=== PATIENT | female | born 1940 | race Caucasian/White ===

== ENCOUNTER 2021-01-24 10:54 | Outpatient (CLI) | payer MEDICARE, OTHER, SELFPAY ==
--- NOTE | ~2021-01-24 | XR_ITS ---
XR shoulder RT min 2V DATE: 01/24/2021 11:49 INDICATION: Right shoulder pain TECHNIQUE: 4 views COMPARISON: None FINDINGS: Diffuse osteopenia. Normal alignment at the acromioclavicular and glenohumeral joints. No fracture or dislocation, perios teal reaction or bone destruction or abnormal soft tissue calcification of the right shoulder. IMPRESSION: Osteopenia Reviewed, dictated and finalized at location B. IMPRESSION: Osteopenia
--- NOTE | ~2021-01-24 | XR_ITS ---
XR lumbar spine 2-3V DATE: 01/24/2021 11:49 INDICATION: Back pain, radiculopathy. TECHNIQUE: AP, lateral, coned lateral lumbosacral views COMPARISON: None FINDINGS: Diffuse osteopenia. There is prominent rotatory levoscoliosis of the lumbar spine. There is severe degenerative disc dise ase throughout the lumbar and lumbosacral spine. No fracture or bone destruction is evident. There is degenerative change at the apophyseal joints in the lower lumbar and lumbosacral area. The sacroiliac joints appear unremarkable. There is extensive calcification of the abdominal aorta and iliac arteries without evidence of abdomi nal aortic aneurysm Surgical clips, right upper quadrant, consistent with cholecystectomy. Right atrial and right ventricular pacemaker leads. Status post sternotomy. IMPRESSION: Rotatory levoscoliosis and severe degenerative disc disease of the lumbar spine Diffuse osteopenia Reviewed, dictated and finalized at location B.
--- NOTE | ~2021-01-24 | XR_ITS ---
XR cervical spine 4-5V DATE: 01/24/2021 11:49 INDICATION: Neck pain TECHNIQUE: AP, open-mouth, lateral, swimmer views COMPARISON: None FINDINGS: There is mild levoscoliosis of the cervical and upper thoracic spine. Diffuse osteopenia. C1 and C2 are normally aligned and the odontoid process is intact. No fracture or dislocation or lock ed facet or prevertebral soft tissue swelling is detected. There is mild anterolisthesis at C4-5. There is moderate degenerative disc disease at C5-6 and C6-7. There is mild anterolisthesis at C7-T1. Status post sternotomy. Left-sided pacemaker device. IMPRESSION: Diffuse osteopenia Mild levoscoliosis Mild anterolisthesis at C4-5 and C7-T1. Moderately severe degenerative disc disease at C5-6 and C6-7 Reviewed, dictated and finalized at location B.
--- NOTE | ~2021-01-24 | XR_ITS ---
XR hip BI wo pelvis DATE: 01/24/2021 11:49 INDICATION: Chronic hip pain TECHNIQUE: AP and lateral views of each hip COMPARISON: None FINDINGS: Degenerative disc disease noted at the lumbar spine. Levoscoliosis of the lumbar spine.. Normal alignment at the pubic symphysis and sacroiliac joints. No fracture or dislocation, avascular necrosis or bone destruction of either hip is evident. Hip join t spaces appear symmetric and relatively preserved. IMPRESSION: Levoscoliosis and multilevel degenerative disc disease of the lumbar spine. No fracture or dislocation or bone destruction of either hip Reviewed, dictated and finalized at location B. IMPRESSION: Levoscoliosis and multilevel degenerative disc disease of the lumba r spine. No fracture or dislocation or bone destruction of either hip
--- NOTE | ~2021-01-24 | XR_ITS ---
XR shoulder LT min 2V DATE: 01/24/2021 11:49 INDICATION: Left shoulder pain TECHNIQUE: 4 views COMPARISON: None FINDINGS: Status post sternotomy. Left-sided dual-lead pacemaker device. Aortic calcification. No fracture or dislocation, periosteal reaction or bone destruction or abnormal soft tissue calcifica tion of the left shoulder joint. IMPRESSION: Osteopenia; otherwise negative left shoulder Reviewed, dictated and finalized at location B.
--- NOTE | ~2021-01-24 | XR_ITS ---
XR knee LT 2V DATE: 01/24/2021 11:49 INDICATION: Left knee pain TECHNIQUE: AP and crosstable lateral views COMPARISON: None FINDINGS: Patellar enthesopathy is noted at the superior pole of patella at the quadriceps tendon ins ertion site and to a lesser extent at the inferior pole of the patellar tendon insertion site. No fracture or dislocation or joint effusion, periosteal reaction or bone destruction, radiopaque int ra-articular loose body or chondrocalcinosis. Mild loss of height of medial compartment joint space. IMPRESSION: Patellar enthesopathy Mild loss of height of medial compartment joint space Reviewed, dictated and finalized at location B.
--- NOTE | ~2021-01-24 | XR_ITS ---
XR knee RT 2V DATE: 01/24/2021 11:49 INDICATION: Right knee pain TECHNIQUE: AP and crosstable lateral views COMPARISON: None FINDINGS: There are couple of surgical clips along the posteromedial aspect of the right knee. There is patellar enthesopathy at the quadriceps tendon and patellar tendon insertion sites. There is minimal periarticular spurring of the patella and medial femoral condyle. Joint spaces appea r relatively preserved. No fracture or dislocation or joint effusion. No radiopaque intra-articular loose body or chondrocalc inosis. IMPRESSION: Mild osteoarthritis Reviewed, dictated and finalized at location B. IMPRESSION: Mild osteoarthritis
== END 2021-01-24 10:55 | disposition home or self-care (01) ==
LOC: ANHIMG 11:02
PROVIDERS: PCP Internal Medicine; Visit Provider Pain Medicine Interventional Pain Medicine
DX: G89.4 Chronic pain syndrome (principal); M17.11 Unilateral primary osteoarthritis, right knee; M51.36 Other intervertebral disc degeneration, lumbar region; M85.812 Other specified disorders of bone density and structure, left shoulder; M85.811 Other specified disorders of bone density and structure, right shoulder; M85.88 Other specified disorders of bone density and structure, other site; M50.322 Other cervical disc degeneration at C5-C6 level; M50.323 Other cervical disc degeneration at C6-C7 level
CPT/HCPCS: 72050; 72100; 73030; 73521; 73560

== ENCOUNTER 2022-12-29 12:09 | Outpatient (CLI) | payer MEDICARE, OTHER, SELFPAY ==
[2022-12-29 12:32] LABS: Basophils Absolute Auto 0.1 K/mm3 (0.0-0.1); Basophils Percent Auto 0.7 % (0.2-1.2); Eosinophils Absolute Auto 0.1 K/mm3 (0-0.3); Eosinophils Percent Auto 0.5 % (0-4.4); Hematocrit 42.9 % (37.0-47.0); Hemoglobin 13.4 g/dL (12.0-15.0); Immature Granulocyte Absolute 0.03 K/mm3 (0.00-0.031); Immature Granulocyte Percent A 0.3 % (0-0.5); Lymphocytes Absolute Auto 2.66 K/mm3 (0.9-3.2); Lymphocytes Percent Auto 25.1 % (18.3-44.2); Mean Corpuscular HGB Conc 31.2 g/dl (32-36); Mean Corpuscular Volume 89.6 fl (80-100); Mean Platelet Volume 11.1 fl (7.4-10.4); Monocytes Absolute Auto 0.7 K/mm3 (0.1-0.6); Monocytes Percent Auto 6.5 % (2.6-8.5); Neutrophils Absolute Auto 7.1 K/mm3 (1.3-6.7); Neutrophils Percent Auto 66.9 % (45.5-73.1); Platelet Count Result 331 k/mm3 (150-375); Red Blood Count 4.79 M/mm3 (4.2-5.4); Red Cell Distribution Width 13.2 % (11.5-14.5); White Blood Count 10.6 K/mm3 (4.5-10.0)
[2022-12-29 12:37] LABS: Blood Urea Nitrogen 22 mg/dL (8-26); Carbon Dioxide 32 mmol/L (22-30); Chloride 100 mmol/L (98-109); Estimated Glomerular Filt Rate 43; Glucose 106 mg/dL (70-105); Ionized Calcium (POC) 1.25 mmol/L (1.11-1.31); Potassium 3.9 mmol/L (3.5-4.9); Sodium 138 mmol/L (138-146)
[2022-12-29 14:07] LABS: Alanine Aminotransferase 18 U/L (6-35); Albumin Level 4.7 g/dL (3.5-5.1); Alkaline Phosphatase 94 U/L (38-126); Anion Gap 6 mmol/L (8-16); Aspartate Amino Transferase 31 U/L (14-36); Bilirubin,Total 0.5 mg/dL (0.2-1.3); Blood Urea Nitrogen 19 mg/dL (7-17); Carbon Dioxide 30 mmol/L (22-30); Chloride 98 mmol/L (98-107); Estimated Glomerular Filt Rate 60; Glucose 103 mg/dL (65-110); Potassium 3.9 mmol/L (3.4-5.0); Sodium 134 mmol/L (137-145)
[2022-12-29 14:33] LABS: Erythrocyte Sedimentation Rate 12 mm/hr (0-20)
[2022-12-29 16:59] LABS: CRP < 0.5 mg/dL (<1.0)
== END 2022-12-29 12:10 | disposition home or self-care (01) ==
LOC: ANHLAB 12:10
PROVIDERS: PCP Internal Medicine; Visit Provider Internal Medicine Hematology & Oncology
DX: D72.829 Elevated white blood cell count, unspecified (principal)
CPT/HCPCS: 36415; 80047; 80053; 85025; 85652; 86140; 88184; 88185

== ENCOUNTER 2025-01-23 11:59 | Inpatient (IN) | payer MEDICARE, OTHER, SELFPAY ==
[2025-01-23] VITALS (24 sets, daily range): BP systolic 92–135; BP diastolic 40–72; PULSE 70–91; RESP 15–30; TEMP 36.2–36.7; O2SAT 92–99; BMI 16.8
--- NOTE | ~2025-01-23 | CT_ITS ---
EXAMINATION: CT abdomen pelvis wo con DATE: 01/24/2025 16:38 INDICATION: Urinary problems, renal failure TECHNIQUE: Computed tomography (CT) of the abdomen and pelvis was performed without intravenous contr ast. Automated exposure control and iterative reconstruction technique were employed. Exam dose: 177 .48 mGy-cm total exam DLP. COMPARISON: 01/24/2025 bilateral renal ultrasound FINDINGS: Status post sternotomy. Right atrial and right ventricular pacemaker leads. Cardiomegaly. N o pericardial effusion. Slight bilateral pleural effusions. The lung bases are clear of infiltrate or consolidation. Status post cholecystectomy. The liver, spleen, pancreas, adrenal glands and kidneys are unremarkable . No bile duct or pancreatic duct dilatation. No urinary tract calculus or hydroureteronephrosis. The urinary bladder is unremarkable. Status post hysterectomy. There is extensive calcification of the abdominal aorta and iliac and femoral arteries. No abdominal aortic aneurysm. There is prominent calcification at the origins of the renal arteries. There are nonspecific shotty periaortic and aortocaval lymph nodes Normal appendix. Diverticulosis of left and right colon. There is a prominent amount of fecal material in the colon. N o bowel obstruction, bowel wall thickening, pneumatosis or intraperitoneal free air is detected. Multilevel severe degenerative disc disease of the lumbar spine. No suspicious osteolytic or osteoblastic lesions. 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 Reviewed, dictated and finalized at location A.
--- NOTE | ~2025-01-23 | US_ITS ---
US renal BI 01/24/2025 11:23 Procedure: Realtime transabdominal ultrasound of the kidneys and bladder. Indication: Renal failure Comparison: No prior studies for comparison. Findings: Renal echotexture is normal bilaterally without hydronephrosis, contour deforming mass or r enal calculus. The right kidney measures 8.9 cm and left kidney measures 10.8 cm. Bladder within nor mal limits. Impression: 1: Unremarkable renal ultrasound. No stones, masses or hydronephrosis. Reviewed, dictated and finalized at location B. Impression: 1: Unremarkable renal ultrasound. No stones, masses or hydronephrosis.
--- NOTE | ~2025-01-23 | XR_ITS ---
Clinical Indication: Weakness AP and lateral views of the chest: Comparison: 02/19/2012 Findings: Calcified right lung granulomas are present. The lungs are otherwise clear, without evidenc e of focal consolidation or pleural effusion. Cardiomediastinal silhouette is stable, status post CA BG with pacemaker device. Bones and soft tissues are unremarkable. Impression: No acute abnormality. Reviewed, dictated and finalized at location . Impression: No acute abnormality.
--- NOTE | 2025-01-23 12:05 | ECG_ITS ---
Test Date: 2025-01-23 12:09:53 Measurements Intervals [place] Rate: 71 P: -10 DE: 157 QRS: 65 QRSD: 114 T: -63 QT: 385 QTc: 419 Interpretive Statements SINUS RHYTHM POSSIBLE LEFT ATRIAL ENLARGEMENT [-0.1mV P WAVE IN V1/V2] ANTEROSEPTAL MYOCARDIAL INFARCTION , OF INDETERMINATE AGE [40+ ms Q WAVE IN V1-V4] MODERATE T-WAVE ABNORMALITY, CONSIDER LATERAL ISCHEMIA [-0.1+ mV T WAVE IN I/aVL/V5/V6] MODERATE T-WAVE ABNORMALITY, CONSIDER INFERIOR ISCHEMIA [-0.1+ mV T WAVE IN II/aVF] No previous ECG available for comparison Electronically Signed On 01-23-2025 18:36:29 CDT by Dixon Puentes M.D.
[2025-01-23 12:27] LABS: Hematocrit 37.8 % (37.0-47.0); Hemoglobin 12.2 g/dL (12.0-15.0); Immature Platelet Fraction Pct 15.8 % (0.9-11.2); Mean Corpuscular HGB Conc 32.3 g/dl (32-36); Mean Corpuscular Hemoglobin 28.6 pg (26-34); Mean Corpuscular Volume 88.5 fl (80-100); Mean Platelet Volume 13.8 fl (7.4-10.4); Platelet Count Result 144 k/mm3 (150-375); Red Blood Count 4.27 M/mm3 (4.2-5.4); Red Cell Distribution Width 14.6 % (11.5-14.5); White Blood Count 23.8 K/mm3 (4.5-10.0)
[2025-01-23 12:35] LABS: Alanine Aminotransferase 33 U/L (6-35); Albumin Level 3.2 g/dL (3.5-5.1); Alkaline Phosphatase 226 U/L (38-126); Anion Gap 11 mmol/L (4-12); Aspartate Amino Transferase 27 U/L (14-36); Bilirubin,Total 1.5 mg/dL (0.2-1.3); Blood Urea Nitrogen 66 mg/dL (7-17); Calcium 9.5 mg/dL (8.4-10.2); Carbon Dioxide 30 mmol/L (22-30); Chloride 93 mmol/L (98-107); Estimated Glomerular Filt Rate 16; Glucose 92 mg/dL (65-110); Potassium 2.9 mmol/L (3.4-5.0); Sodium 134 mmol/L (137-145)
[2025-01-23 12:58] LABS: Band Neutrophils Percent 4 % (0-6); Lymphocytes Absolute Manual 1.19 K/mm3 (1.1-4.5); Lymphocytes Percent Manual 5 % (18-44); Monocytes Absolute Manual 0.95 K/mm3 (0.1-0.90); Monocytes Percent Manual 4 % (3-9); Neutrophils Absolute Manual 21.65 K/mm3 (1.7-7.2); Neutrophils Percent Manual 87 % (46-73); Platelet Estimate Slightly Decreased (Adequate); Total Cells Counted 100
[2025-01-23 12:59] LABS: Anisocytosis 1+; Burr Cells 1+; Ovalocytes 1+; Schistocytes Rare
--- OUTSIDE RECORDS SUMMARY | 2025-01-23 13:21 | XMS_ITS | Clinical Summary ---
Author Organization [facility] Facility Address [address] [address] Care Team Providers Care Voice Professor Name Role Phone Nathen Byrd MD Primary Care Provider [phone] Social History Tobacco Use Types Packs/Day Years Used Date Smoking Tobacco: Former Alcohol Use Standard Drinks/Week Comments No 0 (1 standard drink = 0.6 oz pur e alcohol) Comments Unknown Sex and Gender Information Value Date Recorded Sex Assigned at Not on file Legal Sex Female 2:50 PM EDT Gender Identity Not on file Sexual Orientation Not on file Last Filed Vital Signs Vital Sign Reading Time Taken Comments Blood Pressure 122/70 05/11/2020 12:00 PM CDT Pulse 79 05/11/2020 12:00 PM CDT Temperature 36.7 C (98.1 F) 05/11/2020 12:00 PM CDT Respiratory Rate 18 05/11/2020 12:00 PM CDT Oxygen Saturation 94% 05/11/2020 12:00 PM CDT Inhaled Oxygen Concentration - - Weight 54 kg (119 lb) 05/11/2020 12:00 PM CDT Height 160 cm (5' 3 ) 05/11/2020 12:00 PM CDT Body Mass Index 21.08 05/11/2020 12:00 PM CDT Plan of Treatment Health Maintenance Due Date Last Done Comments Pneumococcal Vaccine: 65+ Years (1 of 2 - PCV) 1946 Influenza Vaccine (#1) 2024 1, 08/13/2019, 08/29/2018, Additional history exists Hepatitis B Vaccine Aged Out No longe r eligible based on patient's age to complete this topic Insurance MEDICARE [facility] Care Teams Voice Professor Relationship Specialty Start Date End Date Nathen Byrd MD [address], [address] [place], [place] [id number] PCP - General Internal Medicine 11/28/21
--- OUTSIDE RECORDS SUMMARY | 2025-01-23 13:21 | XMS_ITS | CONTINUITY OF CARE DOCUMENT ---
Author Name jody vera Address Unknown Organization [facility] Address [address] [place] [address] Phone [phone] Care Team Providers Care Ammunition Supervisor Name Role Phone Eleno SAL, Jordin Unavailable ROSS SAL, JARRET Unavailable JARRET HAWKINS MD Unavailable [phone] PROBLEMS Condition Status Date Provider Notes S/P Biotronik DC PM //Gen change DC PM Biotronik 05/21/23 ( MRI safe) active Charisse Brothers Bradycardia active Umang Fischer Family History of CVA or Stroke: active ? Jordin Johansen MD Hyperlipidemia active ? Jordin Johansen MD Hypertension--ef 55% 12/2019 active Jesús Devlin MD Coronary Heart Disease active ? Jordin Johansen MD Sick sinus syndrome active Jordin Johansen MD Depression active Jordin Johansen MD Weight loss active Kevin Kyte Chest pain active Jesús Devlin MD Pacemaker: active Jordin Johansen MD (Status post) Cardiomyopathy, dilated active Jordin odom MD CHF, systolic, chronic active Jordin Johansen MD Mitral regurgitation, severe active Stacey Ventimiglia PHYSICAL FITNESS TEACHER Difficulty swallowing active Jordin Johansen MD ENCOUNTERS Date Type Provider Location Encounter Diag nosis - In-person encounter Office Visit Jordin Johansen MD [facility] - In-person encounter Office Visit Jordin Johansen MD [facility] Mitral regurgitation, severe - In-person encounter Office Visit Jordin Johansen MD [facility] Difficulty swallowing - In-person encounter Office Visit Jordin Johansen MD [facility] - In-person encounter Office Visit Jordin Johansen MD [facility] Cardiomyopathy, dilatedCHF, systolic, chronic - In-person encounter Office Visit Jordin Johansen MD [facility] - In-person encounter Office Visit Jordin Johansen MD [facility] - In-person encounter Office Visit Jordin Johansen MD [facility] Pacemaker: - In-person encounter Office Visit Jesús Devlin MD [facility] Chest pain - In-person encounter Office Visit Jesús Devlin MD [facility] - In-person encounter Office Visit Tammy Vela MD [facility] Weight loss - In-person encounter Office Visit Jordin Johansen MD [facility] - In-person encounter Office Visit Jordin Johansen MD [facility] - In-person encounter Office Visit Jordin Johansen MD [facility] Depression - In-person encounter Office Visit Jordin Johansen MD [facility] - In-person encounter Office Visit Jordin Johansen MD [facility] - In-person encounter Office Visit Jordin Johansen MD [facility] - In-person encounter Office Visit Jordin Johansen MD [facility] Sick sinus syndrome - In-person encounter Office Visit Jordin Johansen MD [facility] Family History of CVA or Stroke:Hyperlipidem iaHypertension--ef 55% 12/2019Coronary Heart Disease VITAL SIGNS Date Observation Value Provider Body Mass Index (Ratio) 18.95 kg/m2 Earnest Johansen MD weight E&M 107 [lb_av] Jordin Rush respiratory rate E&M 16 /min Indra Noman blood pressure, cuff size regular Do [facility] blood pressure, diastolic 64 mm[Hg] Do [facility] blood pressure, systolic 118 mm[Hg] Ti mark Noman oxygen saturation, oximetry 100 % [facility] height E&M 63 [in_i] [facility] Body Mass Index (Ratio) 18.95 kg/m2 Earnest Johansen MD blood pressure, cuff size regular [facility] blood pressure, diastolic 87 mm[Hg] [facility] blood pressure, systolic 137 mm[Hg] Joni loza pulse rate 86 /min Trae y respiratory rate E&M 12 /min Trae weight E&M 107 [lb_av] Trae y height E&M 63 [in_i] Trae y Body Mass Index (Ratio) 19.31 kg/m2 Earnest Johansen MD oxygen saturation, oximetry 94 % Macarena Garcia pulse rate 77 /min Macarena Garcia blood pressure, cuff size regular Angel Garcia blood pressure, diastolic 82 mm[Hg] Angel Garcia blood pressure, systolic 143 mm[Hg] James smith Garcia respiratory rate E&M 14 /min Macarena singhchristos weight E&M 109 [lb_av] Macarena Garcia height E&M 63 [in_i] Macarena Garcia Body Mass Index (Ratio) 18.95 kg/m2 Earnest Johansen MD blood pressure, cuff size regular Ke rri Gruenenfeldbekah blood pressure, diastolic 72 mm[Hg] Ke rri Gruenenfelder blood pressure, systolic 150 mm[Hg] Kathya ri Ryanueneyelena oxygen saturation, oximetry 100 % Tania Maria Elena respiratory rate E&M 12 /min Taina G jacqueenenfeldbekah pulse rate 70 /min Tania Grsri [facility] weight E&M 107 [lb_av] Tania Gruenenfe [facility] height E&M 63 [in_i] Tania Socratese [facility] Body Mass Index (Ratio) 18.60 kg/m2 Earnest Johansen MD blood pressure, cuff size regular Ke rri Gruenenfelder blood pressure, diastolic 62 mm[Hg] Ke rri Gruenenfeldbekah blood pressure, systolic 102 mm[Hg] Kathya ri Ryanueneyelena oxygen saturation, oximetry 97 % Tania Maria Elena respiratory rate E&M 12 /min Tania G jacuqeenenfeldbekah pulse rate 91 /min Tnaia Gruenenfe [facility] weight E&M 105 [lb_av] Tania Gruenenfe [facility] height E&M 63 [in_i] Tania Gruenenfe [facility] Body Mass Index (Ratio) 19.66 kg/m2 Earnest Johansen MD pulse rate 74 /min Natty Jamie blood pressure, diastolic 62 mm[Hg] Yahaira alvarez Jamie blood pressure, systolic 133 mm[Hg] Priscila rodriguez Jamie oxygen saturation, oximetry 90 % Nattyjennifer Ayala weight E&M 111 [lb_av] Natty Jamie blood pressure, cuff size large An kim Jamie height E&M 63 [in_i] Natty Jamie Body Mass Index (Ratio) 20.37 kg/m2 Earnest Johansen MD blood pressure, diastolic 80 mm[Hg] St marquez [place] blood pressure, systolic 151 mm[Hg] Racquel [place] oxygen saturation, oximetry 96 % Mariela [place]ll[place] respiratory rate E&M 16 /min Mariela Rush gladis pulse rate 80 /min Mariela [place]ll[place] weight E&M 115 [lb_av] Marielakatherine [place] height E&M 63 [in_i] Marielakatherine [place] Body Mass Index (Ratio) 21.25 kg/m2 Earnest Johansen MD blood pressure, diastolic 92 mm[Hg] Chaya nkLogic blood pressure, systolic 149 mm[Hg] Destinee kLogic blood pressure, diastolic 92 mm[Hg] Sa ra Resendez blood pressure, systolic 149 mm[Hg] Drea a Resendez respiratory rate E&M 16 /min Marge Si ms oxygen saturation, oximetry 97 % Marge Resendez pulse rate 86 /min Marge Resendez weight E&M 120 [lb_av] Marge Resendez blood pressure, cuff size regular Sa ra Resendez height E&M 63 [in_i] Marge Resendez blood pressure, cuff size regular Papo Arredondo blood pressure, diastolic 66 mm[Hg] Ke rri Gruenenfelder blood pressure, systolic 136 mm[Hg] Ker ri Gruenenfelder oxygen saturation, oximetry 94 % Tania Gruenenfelder respiratory rate E&M 16 /min Tania G ruenenfelder pulse rate 73 /min Tania Gruenenfe lder height E&M 63 [in_i] Tania Gruenenfe lder Body Mass Index (Ratio) 21.25 kg/m2 Joshua Devlin MD blood pressure, cuff size regular Ke rri Gruenenfelder blood pressure, diastolic 50 mm[Hg] Ke rri Gruenenfelder blood pressure, systolic 110 mm[Hg] Ker ri Gruenenfelder oxygen saturation, oximetry 98 % Tania Gruenenfelder respiratory rate E&M 20 /min Tania G ruenenfelder pulse rate 82 /min Tania Gruenenfe lder weight E&M 120 [lb_av] Tania Gruenenfe lder height E&M 63 [in_i] Tania Gruenenfe lder Body Mass Index (Ratio) 20.90 kg/m2 Lanre Castillo blood pressure, cuff size regular Ke rri Gruenenfelder blood pressure, diastolic 60 mm[Hg] Ke rri Gruenenfelder blood pressure, systolic 112 mm[Hg] Ker ri Gruenenfelder oxygen saturation, oximetry 99 % Tania Gruenenfelder respiratory rate E&M 16 /min Tania G ruenenfelder pulse rate 90 /min Tania Gruenenfe lder weight E&M 118 [lb_av] Tania Durand [facility] height E&M 63 [in_i] Tania Durand [facility] Body Mass Index (Ratio) 22.32 kg/m2 Earnest Johansen MD pulse rate 64 /min Harleeneugenia Navarrobel joan oxygen saturation, oximetry 93 % Harleen Zheng respiratory rate E&M 16 /min Harleen Zheng blood pressure, cuff size regular Cy karen Zheng blood pressure, diastolic 60 mm[Hg] Cy karen Zheng blood pressure, systolic 120 mm[Hg] Diane eugenia Zheng weight E&M 126 [lb_av] Harleeneugenia Navarrobel l height E&M 63 [in_i] Harleen Ramonbel l Body Mass Index (Ratio) 23.38 kg/m2 Earnest Johansen MD blood pressure, diastolic 78 mm[Hg] La Raphael blood pressure, systolic 143 mm[Hg] Yvonne Raphael oxygen saturation, oximetry 94 % Meryl Raphael respiratory rate E&M 18 /min Chanel Raphael pulse rate 61 /min Meryl garzon weight E&M 132 [lb_av] Meryl Cohen [facility] height E&M 63 [in_i] Meryl Cohen [facility] Body Mass Index (Ratio) 24.80 kg/m2 Earnest Johansen MD blood pressure, diastolic 68 mm[Hg] La Raphael blood pressure, systolic 146 mm[Hg] Yvonne Raphael oxygen saturation, oximetry 98 % Meryl Raphael respiratory rate E&M 18 /min Chanel Raphael pulse rate 62 /min Meryl garzon weight E&M 140 [lb_av] Meryl garzon height E&M 63 [in_i] Meryl garzon Body Mass Index (Ratio) 25.79 kg/m2 Earnest Johansen MD blood pressure, diastolic 72 mm[Hg] La Raphael blood pressure, systolic 127 mm[Hg] Yvonne Raphael oxygen saturation, oximetry 98 % Meryl Raphael respiratory rate E&M 20 /min Chanel Raphael pulse rate 60 /min Meryl garzon weight E&M 145.6 [lb_av] Meryl saleh height E&M 63 [in_i] Meryl garzon Body Mass Index (Ratio) 25.19 kg/m2 Earnest Johansen MD blood pressure, diastolic 77 mm[Hg] La Raphael blood pressure, systolic 150 mm[Hg] Yvonne Raphael oxygen saturation, oximetry 96 % Meryl Donavon respiratory rate E&M 18 /min Chanel Raphael pulse rate 64 /min Meryl garzon weight E&M 142.2 [lb_av] Meryl saleh height E&M 63 [in_i] Meryl garzon Body Mass Index (Ratio) 24.62 kg/m2 Earnest Johansen MD blood pressure, cuff size regular Ke rri Maria Elena blood pressure, diastolic 70 mm[Hg] Papo rri Maria Elena blood pressure, systolic 152 mm[Hg] Kathya Arredondo oxygen saturation, oximetry 96 % Tania Arredondo respiratory rate E&M 16 /min Tania mccartney pulse rate 51 /min Tania solomon weight E&M 139 [lb_av] Tania Durand lder height E&M 63 [in_i] Tania Durand lder Body Mass Index (Ratio) 24.51 kg/m2 Earnest Johansen MD blood pressure, resting Yes Yolande Raphael blood pressure, diastolic 55 mm[Hg] La Hercules Raphael blood pressure, systolic 156 mm[Hg] Yvonne Raphael oxygen saturation, oximetry 95 % Meryl Raphael respiratory rate E&M 20 /min Chanel Raphael pulse rate 55 /min Meryl Cohen shahbazsukhjinder weight E&M 138.4 [lb_av] Meryl easton height E&M 63 [in_i] Meryl Cohen shahbazsukhjinder ALLERGIES Allergy Name Onset Date Reaction Criticality Status AMIODARONE HCL nausea nausea High Criticality a ctive ALEVE Low Criticality active ASA Low Criticality active HISTORY OF MEDICATION USE Medication Status Instructions Dates Provider Indications Com ments furosemide 20 mg tablet active Take 1 tablet by mouth once a day Tania Arredondo losartan 25 mg tablet active Take 1 tablet by mouth once a day Stacey Ventimiglia PHYSICAL FITNESS TEACHER losartan 25 mg tablet completed - Stacey Ventimiglia PHYSICAL FITNESS TEACHER furosemide 20 mg tablet completed TAKE 1 TABLET BY MOUTH EVERY DAY - Tania Arredondo cephalexin 250 mg capsule completed 1 capsule three times a day - Tania Arredondo doxycycline hyclate 100 mg capsule completed Take 1 capsule by mouth twice a day - Jordin Johansen MD losartan 25 mg tablet completed Take 1 tablet by mouth once a day - Nadia Ordaz NP furosemide 20 mg tablet completed 1 tablet once a day - Stacey Peres PHYSICAL FITNESS TEACHER amlodipine 5 mg tablet completed TAKE 1 TABLET BY MOUTH EVERY DAY - Tania Arredondo amlodipine 5 mg tablet completed Take 1 tablet by mouth once a day - Hannah Cheng Zyrtec unspecified unspecified active Marge Resendez hydrocodone-acet aminophen 10-325 mg tablet completed - Tania Arredondo benazepril 20 mg tablet completed TAKE 1 TABLET BY MOUTH DAILY - Tania Arredondo Lexapro 5 mg tablet completed 1 tablet once a day - Denny Sims AMITRIPTYLINE HCL TABLET completed per PCP - Harleen Zheng ESCITALOPRAM OXALATE 10 MG ORAL TABLET completed 1 po daily - Hannah Cheng ALLERGY 24-HR TABLET completed as needed - Tania Arredondo omeprazole 40 mg capsule,delayed release(DR/EC) active once a day Meryl Raphael AMIODARONE HCL 200 MG ORAL TABLET completed ONE twice DAILY - Meryl Raphael PROTONIX 40 MG ORAL PACKET completed take one pill a day - Meryl Raphael VITAMIN D (ERGOCALCIFEROL) 20657 UNIT ORAL CAPSULE completed once a week - Tania Arredondo gabapentin 100 mg capsule active Take 1 capsule by mouth twice a day as needed Tania Arredondo benazepril 20 mg tablet completed Take 1 tablet once a day - Tania Arredondo amlodipine 5 mg tablet completed Take 1 tablet once a day - Tammy Vela MD alprazolam 0.5 mg tablet active twice a day Jordin Johansen MD oxycodone-acetam inophen 10-325 mg tablet active Take as directed Tania Arredondo SOCIAL HISTORY Date Observation Value Provider Underweight yes Jordin Rush personal history of marijuana use no Jordin Johansen MD drug use no Jordin Rush alcohol use no Jordin Rush passive cigarette sm manuela exposure yes Jordin Johansen MD smoking, year quit 2000 Jordin brenner MD cigarette use yes Jordin Johansen MD smoking status Former smoker Jordin odom MD Underweight yes Jordin Rush personal history of marijuana use no Stacey Ventimiglia [facility] drug use no Stacey Ventimig vanessa PHYSICAL FITNESS TEACHER alcohol use no Stcaey Ventimig vanessa PHYSICAL FITNESS TEACHER passive cigarette sm manuela exposure yes Stacey Ventimiglia [facility] smoking, year quit 2000 Stacey Ve ntimiglia [facility] cigarette use yes Stacey Ventimi glia PHYSICAL FITNESS TEACHER smoking status Former smoker Stacey Venti miglia [facility] Underweight no Jordin Rush alcohol use no Macarena Garcia passive cigarette sm manuela exposure yes Macarena Garcia smoking, year quit 2000 Macarena menendez cigarette use yes Macarena Garcia smoking status Former smoker Macarena Garcia smoking status Former smoker Jordin odom MD social history reviewed E&M revi ewed - no changes required Jordin Johansen MD Underweight yes Jordin Rush Underweight yes Jordin Rush social history reviewed E&M revi ewed - no changes required Jordin Johansen MD social history E&M Marital Statu s: C hildren: 4 O ccupation: Disabled Smoking History: P atient is a former smoker. Jordin Johansen MD social history reviewed E&M revi ewed - no changes required Jordin Johansen MD smoking status Former smoker Natty hernandez passive cigarette sm manuela exposure yes Nattyjennifer Ayala smoking, year quit 2000 Nattyjennifer Collier iams cigarette use yes Natty Ayala social history E&M Marital Statu s: C hildren: 4 O ccupation: Disabled Smoking History: P atient is a former smoker. Jordin Johansen MD social history reviewed E&M revi ewed - no changes required Jordin Johansen MD passive cigarette sm manuela exposure yes Mariela Artemio smoking, year quit 2000 Mariela José Manuel yates cigarette use yes Mariela Artemoi smoking status Former smoker Mariela Artemio social history reviewed E&M revi ewed - no changes required Jordin Johansen MD pacemaker surgery, hx of Pacemaker Surger y,Hx of Jordin Johansen MD social history E&M Marital Statu s: C hildren: 4 O ccupation: Disabled Smoking History: P atient is a former smoker. Dany Coppola social history reviewed E&M revi ewed - no changes required Dany Coppola passive cigarette sm manuela exposure yes Tania Davismaldonadonfelder smoking, year quit 2000 Tania Grphill enenfelder cigarette use yes Tania Horannf elder smoking status Former smoker Tania Horan nfelder social history E&M Marital Statu s: C hildren: 4 O ccupation: Disabled Smoking History: P atient is a former smoker. Denny Sims social history reviewed E&M revi ewed - no changes required Denny Sims smoking status Former smoker Tania Horan nfelder passive cigarette sm manuela exposure yes Tania rAredondo smoking, year quit 2000 Tania Morales enenfelder cigarette use yes Tania Crowell elder number of grandchildren Tammy Kangin Anna social history E&M Marital Statu s: C hildren: 4 O ccupation: Disabled Smoking History: P atient is a former smoker. Tammy Vela MD social history reviewed E&M revi ewed - no changes required Tammy Vela MD passive cigarette sm manuela exposure yes Tania Arredondo smoking, year quit 2000 Tania Morales enenfeld cigarette use yes Tania Crowell elder smoking status Former smoker Tania Horan elder social history E&M Marital Statu s: C hildren: 4 O ccupation: Disabled Smoking History: P atient is a former smoker. Jordin Johansen MD social history reviewed E&M revi ewed - no changes required Jordin Johansen MD passive cigarette sm manuela exposure yes Harleen Zheng smoking, year quit 2000 Harleen willard cigarette use yes Harleen knox smoking status Former smoker Harleen renteria social history E&M Marital Statu s: C hildren: 4 O ccupation: Disabled Smoking History: P atient is a former smoker. Jordin Johansen MD social history reviewed E&M revi ewed - no changes required Jordin Johansen MD alcohol use no Meryl garzon passive cigarette sm manuela exposure yes Meryl Raphael smoking, year quit 2000 Meryl Raphael cigarette use yes Merly saleh smoking status Former smoker Meryl Lilly social history E&M Marital Statu s: Jessica wise: 4 O ccupation: Disabled Smoking History: P lon is a former smoker. Jordin Johansen MD social history reviewed E&M revi ewed - no changes required Jordin Johansen MD alcohol use no Meryl Cohen nson passive cigarette sm manuela exposure yes Meryl Raphael smoking, year quit 2000 Meryl Raphael cigarette use yes Meryl saleh smoking status Former smoker Meryl Lilly social history E&M Marital Statu s: Jessica wise: 4 O ccupation: Disabled Smoking History: P atosvaldo is a former smoker. Jordin Johansen MD social history reviewed E&M revi ewed - no changes required Jordin Johansen MD alcohol use no Meryl Cohen nson passive cigarette sm manuela exposure yes Meryl Raphael smoking, year quit 2000 Meryl Raphael cigarette use yes Meryl saleh smoking status Former smoker Meryl Lilly social history E&M Marital Statu s: Jessica wise: 4 O ccupation: Disabled Smoking History: P lon is a former smoker. Jrodin Johansen MD social history reviewed E&M revi ewed - no changes required Jordin Johansen MD alcohol use no Meryl oChen nson passive cigarette sm manuela exposure yes Meryl Raphael smoking, year quit 2000 Meryl Raphael cigarette use yes Meryl saleh smoking status Former smoker Meryl Lilly social history reviewed E&M revi ewed - no changes required Jordin Johansen MD alcohol use no Tania Gruenenfe lder passive cigarette sm manuela exposure yes Tania Houserer smoking, year quit 2000 Tania albertoer cigarette use yes Tania hinton smoking status Former smoker Tania Horan nfelder passive cigarette sm manuela exposure yes Jordin Johansen MD alcohol use no Jordin Rush social history reviewed E&M revi ewed - no changes required Jordin Johansen MD social history E&M S moking History: Tana forrest is a former smoker. M arital Status: Jessica wise: 4 O ccupation: Disabled Jordin Johansen MD smoking, year quit 2000 Meryl Raphael cigarette use yes Meryl saleh smoking status Former smoker Meryl Lilly FUNCTIONAL STATUS Date Observation Value Provider HRA, CV Assess/Plan, Angina (inactive) Management Plan continue current therapy Stacey Ventimiglia PHYSICAL FITNESS TEACHER HRA, CV Assess/Plan, Angina (inactive) Management Plan continue current therapy Nadia Ordaz SOFTWARE SALES MANAGER HRA, CV Assess/Plan, Angina (inactive) Management Plan continue current therapy Dany Houstonzai HRA, CV Assess/Plan, Angina (inactive) Management Plan continue current therapy Denny Sims HRA, CV Assess/Plan, Angina (inactive) Management Plan continue current therapy Kevin Kyte HRA, CV Assess/Plan, Angina (inactive) Management Plan continue current therapy Jordin Johansen MD HRA, CV Assess/Plan, Angina (inactive) Management Plan continue current therapy Jordin Johansen MD HRA, CV Assess/Plan, Angina (inactive) Management Plan continue current therapy Jordin Johansen MD HRA, CV Assess/Plan, Angina (inactive) Management Plan continue current therapy Jordin Johansen MD HRA, CV Assess/Plan, Angina (inactive) Management Plan continue current therapy Jordin Johansen MD HRA, CV Assess/Plan, Angina (inactive) Management Plan continue current therapy Jordin Johansen MD HRA, CV Assess/Plan, Angina (inactive) Management Plan continue current therapy Jordin Johansen MD FAMILY HISTORY Family Member Condition Father Family History of Co ronary Artery Disease: Father Family History of CV A or Stroke: INSURANCE PROVIDERS Payer name Policy type / Coverage type Maksim red green party ID [place] MEDIC[place] PART B Medicare [id number] [facility] Covocative [phone] ADVANCE DIRECTIVES Name Date DISCUSSED - NO DECISION MADE TREATMENT PLAN Date Name Performer [id number],S, Jordin odom MD [id number],S, Jordin odom MD [id number],S, Jordin odom MD [id number],S, Jordin odom MD [id number],S, Jordin odom MD [id number],S, Jordin odom MD [id number],S,Check lipid p winter and Lp(a) Jordin Johansen MD [id number],S, Jordin odom MD [id number],S, Jordin odom MD [id number],S, Jordin odom MD [id number],W,P aces 96% in RV. Will upgrade to BiV pacer to restore sychrony. Jordin Johansen MD [id number],SJordin MD [id number],S, Jordin odom MD [id number],S, Jordin odom MD [id number],S, Jordin odom MD [id number],S, Jordin odom MD [id number],S, Jordin odom MD [id number],S,S tart RPM (remote patient monitoring) Jordin Johansen MD [id number],S, Jordin odom MD [id number],S, Jordin odom MD [id number],S, Jordin odom MD [id number],S, Jordin odom MD [id number],S, Jordin odom MD [id number],S, Jordin odom MD [id number],B, Jordin odom MD [id number],S, Jordin odom MD [id number],S, Dany Ahmedza i [id number],S, Dany Ahmedza i [id number],S, Dany Ahmedza i [id number],S, Dany Ahmedza i Cardiology Jordin Johansen MD Cardiology Jordin Johansen MD Cardiology Jordin Johansen MD Cardiology Jordin Johansen MD Cardiology Jordin Johansen MD Cardiology Jordin Johansen MD Cardiology:refuses f ollow up EGD e ncouraged sitting up right for meals s mall bites and crushing pills Stacey Ventimiglia PHYSICAL FITNESS TEACHER Cardiology:on last e cho g oal is symptom management at this time [facility] Cardiology:resume jean pierre osborne and monitor T he following medications were removed from the medication list: Furosemide 20 Mg Tablet (Furosemide) ..... 1 tablet once a day Her updated medication list for this problem includes: Losartan 25 Mg Tablet (Losartan) ..... Take 1 tablet by mouth once a day Losartan 25 Mg Tablet (Losartan) Furosemide 20 Mg Tablet (Furosemide) ..... Take 1 tablet by mouth every day [facility] Cardiology:Ef of 30% . I CD in place T he following medications were removed from the medication list: Furosemide 20 Mg Tablet (Furosemide) ..... 1 tablet once a day Her updated medication list for this problem includes: Losartan 25 Mg Tablet (Losartan) ..... Take 1 tablet by mouth once a day Furosemide 20 Mg Tablet (Furosemide) ..... Take 1 tablet by mouth every day [facility]:Ef unchan ged at 30% with severe MR O nce again reinforced with patient that she must take meds as prescribed p BNP 11,500 p atient voiced understanding and will resume meds she will return in 3 months or sooner if needed p atient will consider cardiac rehab [facility]: c onsider stress test if with symptoms persist. Nadia Ordaz NP Cardiology: u ncontrolled, needs rx. discussed with family. refer to primary. Nadia Ordaz NP Cardiology: d efer to primary/ent/GI n ot interesting in further work up for issue Nadia Ordaz NP Cardiology: Her updated medication list for this problem includes: Furosemide 20 Mg Tablet (Furosemide) ..... 1 tablet once a day BP today: 143/82 P rior BP: 150/72 (07/10/2023) Nadia Ordaz NP Cardiology: s /p ppm Nadia Ordaz NP Cardiology: n ormal device function Nadia [place] SOFTWARE SALES MANAGER Cardiology:lvef 35% stopped taking losartan months ago n yha 3 symptoms l abs, echo, cxr w ould benefit from getting back on losartan, and starting bb, jardiance. Hesistant to take medications. C ontinue lasix. s ymptoms largely from uncontrolled symptoms. Nadia Ordaz SOFTWARE SALES MANAGER Cardiology Jordin Johansen MD Cardiology Jordin Johansen MD Cardiology Jordin Johansen MD Cardiology Jordin Johansen MD Cardiology Jordin Johansen MD Cardiology Jordin Johansen MD Cardiology:Check lipid panel and Lp(a) Jordin Johansen MD Cardiology Jordin Johansen MD Cardiology Jordin Johansen MD Cardiology Jordin Johansen MD Cardiology:Paces 96% in RV. Will upgrade to BiV pacer to restore sychrony. Jordin Johansen MD Cardiology Jordin Johansen MD Cardiology Jordin Johansen MD Cardiology Jordin Johansen MD Cardiology Jordin Johansen MD Cardiology Jordin Johansen MD Cardiology Jordin Johansen MD Cardiology:Start RPM (remote pat ient monitoring) Jordin Johansen MD Cardiology Jordin Johansen MD Cardiology Jordin Johansen MD Cardiology Jordin Johansen MD Cardiology Jordin Johansen MD Cardiology Jordin Johansen MD Cardiology Jordin Johansen MD Cardiology Jordin Johansen MD Cardiology Jordin Johansen MD Cardiology Follow up Dany Mae ai Cardiology Follow up Dany Mae ai Cardiology Follow up Dany Mae ai Cardiology Follow up Dany Mae ai Cardiology Follow up Denny Bethany Cardiology Follow up Denny Bethany Cardiology Follow up Denny Eileent Cardiology Follow up Denny Sims Cardiology Follow up :Diet contr olled. Kevin Ky Cardiology Follow up :Blood pressure control is satisfactory. [facility] Cardiology Follow up :Has significant life stressors. Further management as per yourself. [facility] Cardiology Follow up :Has lost 8lbs in the past 2 months. Kevin Cardiology Follow up :Satisfacto ry device function. Kevin Cardiology Follow up :Denies of any chest pain. Kevin Castillo Cardiology follow up Jordin maldonado MD Cardiology follow up Jordin maldonado MD Cardiology follow up Jordin maldonado MD Cardiology follow up Jordin maldonado MD Cardiology:Did not t olerate cymbalta. W ill try Lexapro Jordin Johansen MD Cardiology Jordin Johansen MD Cardiology Jordin Johansen MD Cardiology Jordin Johansen MD Cardiology:Can't sit long enough to do any stress testing. Jordin Johansen MD Cardiology Jordin Johansen MD Cardiology Jordin Johansen MD Cardiology Jordin Cliveelidia SAL Cardiology Jordin Johansen MD Cardiology Jordin Johansen MD Cardiology Jordin Johansen MD Cardiology Jordin Johansen MD Cardiology Jordin Johansen MD Cardiology Jordin Johansen MD Cardiology Jordin Johansen MD Cardiology Jordin Johansen MD Cardiology Jordin Johansen MD Cardiology Jordin Johansen MD Cardiology Jordin Johansen MD Cardiology Follow up Jordin maldonado MD Cardiology Follow up Jordin maldonado MD Cardiology Follow up Jordin maldonado MD Cardiology Follow up Jordin maldonado MD Cardiology Follow up :Needs PPM Jordin Johansen MD Cardiology Jordin Johansen MD Cardiology Jordin Johansen MD Cardiology Jordin Johansen MD Cardiology Jordin Johansen MD Cardiology Jordin Johansen MD Date Name LIPID PANEL CBC (H/H, RBC, INDIC ES, WBC, PLT) HEMOGLOBIN A1c TSH, free T4, total T3 PROBNP, N TERMINAL COMPREHENSIVE METABO LIC PANEL, W/EGFR CXR- PA/Lat Complete Echo CXR- PA/Lat CXR- PA/Lat URINALYSIS, COMPLETE W/REFLEX TO CULTURE CBC (INCLUDES DIFF/P LT) COMPREHENSIVE METABO LIC PANEL, W/EGFR PROTHROMBIN TIME WIT H INR Partial Thromboplast in Time, Activated Lipoprotein (a) PROBNP, N TERMINAL CRP, high sensitivit y Stress Regadenoson Complete Echo Complete Echo DLCO - 67138 FRC - 26395 FVC - 89728 Stress Regadenoson Complete Echo STR - Adenosine Complete Echo Pacemaker Dual Chamb er - GC STR - Adenosine Complete Echo HISTORY OF PROCEDURES Procedure Date Procedure Name Provider Procedure Notes S tatus EKG Jordin Johansen MD complete d EKG Tammy Vela MD completed EKG Jordin Johansen MD complete d ICM Interrogation, Remote (Prof) Jordin Johansen MD INTERROGATION EVAL REMOTE </30 D CV MNTR SYS completed ICM Interrogation, Remote (Tech) Jordin Johansen MD INTERROGATION EVAL REMOTE </30 D TECH REVIEW completed ICM Interrogation, Remote (Prof) Jordin Johansen MD INTERROGATION EVAL REMOTE </30 D CV MNTR SYS completed Pacemaker Interrogation, Remote (Tech) Jordin Johansen MD INTERROGATION REMOTE </90 D ORDER CLERK REVIEW completed Pacemaker Interrogation, Remote (Prof) Jordin Johansen MD INTERROGATION EVAL REMOTE </90 D 1/2/DRY KILN LOADER LEAD P completed ICM Interrogation, Remote (Prof) Jordin Johansen MD INTERROGATION EVAL REMOTE </30 D CV MNTR SYS completed ICM Interrogation, Remote (Tech) Jordin Johansen MD INTERROGATION EVAL REMOTE </30 D TECH REVIEW completed ICM Interrogation, Remote (Prof) Jordin Johansen MD INTERROGATION EVAL REMOTE </30 D CV MNTR SYS completed ICM Interrogation, Remote (Tech) Jordin Johansen MD INTERROGATION EVAL REMOTE </30 D TECH REVIEW completed ICM Interrogation, Remote (Prof) Jordin Johansen MD INTERROGATION EVAL REMOTE </30 D CV MNTR SYS completed ICM Interrogation, Remote (Tech) Jordin Johansen MD INTERROGATION EVAL REMOTE </30 D TECH REVIEW completed ICM Interrogation, Remote (Prof) Jordin Johansen MD INTERROGATION EVAL REMOTE </30 D CV MNTR SYS completed Pacemaker Interrogation, Remote (Tech) Jordin Johansen MD INTERROGATION REMOTE </90 D ORDER CLERK REVIEW completed Pacemaker Interrogation, Remote (Prof) Jordni Johansen MD INTERROGATION EVAL REMOTE </90 D 1/2/DRY KILN LOADER LEAD P completed ICM Interrogation, Remote (Prof) Jordin Johansen MD INTERROGATION EVAL REMOTE </30 D CV MNTR SYS completed ICM Interrogation, Remote (Tech) Jordin Johansen MD INTERROGATION EVAL REMOTE </30 D TECH REVIEW completed ICM Interrogation, Remote (Prof) Jordin Johansen MD INTERROGATION EVAL REMOTE </30 D CV MNTR SYS completed ICM Interrogation, Remote (Tech) Jordin Johansen MD INTERROGATION EVAL REMOTE </30 D TECH REVIEW completed ICM Interrogation, Remote (Prof) Jordin Johansen MD INTERROGATION EVAL REMOTE </30 D CV MNTR SYS completed Pacemaker Interrogation, Remote (Tech) Jordin Johansen MD INTERROGATION REMOTE </90 D ORDER CLERK REVIEW completed Pacemaker Interrogation, Remote (Prof) Jordin Johansen MD INTERROGATION EVAL REMOTE </90 D 1/2/DRY KILN LOADER LEAD P completed ICM Interrogation, Remote (Prof) Jordin Johansen MD INTERROGATION EVAL REMOTE </30 D CV MNTR SYS completed Pacemaker Interrogation, Remote (Tech) Jordin Johansen MD INTERROGATION REMOTE </90 D ORDER CLERK REVIEW completed Pacemaker Interrogation, Remote (Prof) Jordin Johansen MD INTERROGATION EVAL REMOTE </90 D 1/2/DRY KILN LOADER LEAD P completed ICM Interrogation, Remote (Prof) Jordin Johansen MD INTERROGATION EVAL REMOTE </30 D CV MNTR SYS completed ICM Interrogation, Remote (Tech) Jordin Johansen MD INTERROGATION EVAL REMOTE </30 D TECH REVIEW completed ICM Interrogation, Remote (Prof) Jordin Johansen MD INTERROGATION EVAL REMOTE </30 D CV MNTR SYS completed ICM Interrogation, Remote (Tech) Jordin Johansen MD INTERROGATION EVAL REMOTE </30 D TECH REVIEW completed ICM Interrogation, Remote (Prof) Jordin Johansen MD INTERROGATION EVAL REMOTE </30 D CV MNTR SYS completed ICM Interrogation, Remote (Tech) Jordin Johansen MD INTERROGATION EVAL REMOTE </30 D TECH REVIEW completed ICM Interrogation, Remote (Prof) Jordin Johansen MD INTERROGATION EVAL REMOTE </30 D CV MNTR SYS completed ICM Interrogation, Remote (Tech) Jordin Johansen MD INTERROGATION EVAL REMOTE </30 D TECH REVIEW completed ICM Interrogation, Remote (Prof) Jordin Johansen MD INTERROGATION EVAL REMOTE </30 D CV MNTR SYS completed Pacemaker Interrogation, Remote (Tech) Jordin Johansen MD INTERROGATION REMOTE </90 D ORDER CLERK REVIEW completed Pacemaker Interrogation, Remote (Prof) Jordin Johansen MD INTERROGATION EVAL REMOTE </90 D 1/2/DRY KILN LOADER LEAD P completed ICM Interrogation, Remote (Prof) Jordin Johansen MD INTERROGATION EVAL REMOTE </30 D CV MNTR SYS completed ICM Interrogation, Remote (Tech) Jordin Johansen MD INTERROGATION EVAL REMOTE </30 D TECH REVIEW completed EKG Jordin Johansen MD complete d SNOMED-CT: [id number] Current Medications Documented Jordin Johansen MD completed ICM Interrogation, Remote (Prof) Jordin Johansen MD INTERROGATION EVAL REMOTE </30 D CV MNTR SYS completed ICM Interrogation, Remote (Tech) Jordin Johansen MD INTERROGATION EVAL REMOTE </30 D TECH REVIEW completed ICM Interrogation, Remote (Prof) Jordin Johansen MD INTERROGATION EVAL REMOTE </30 D CV MNTR SYS completed ICM Interrogation, Remote (Tech) Jordin Johansen MD INTERROGATION EVAL REMOTE </30 D TECH REVIEW completed SNOMED-CT: [id number] Current Medications Documented Jordin Johansen MD completed SNOMED-CT: [id number] Current Medications Documented Jordin Johansen MD completed EKG Jordin Johansen MD complete d SNOMED-CT: [id number] Current Medications Documented Jordin Johansen MD completed Mobile Cardiac Telemetry - Tech Jordin Johansen MD completed Mobile Cardiac Telemetry - Prof Jordin Johansen MD completed
--- OUTSIDE RECORDS SUMMARY | 2025-01-23 13:22 | XMS_ITS | Data Portability ---
Author Organization [place] - [facility] [employer], Main Office Address [address] [place] [address] Care Team Providers Care Pilot Steam Yacht Name Role Phone JARRET BYRD Primary Care Provider JARRET BYRD Referring Provider [phone] JORDIN LEW Entry Level Machine Operator MANUELA ALVAREZ Sole Buffer ENRICO SCHNEIDER Orthopedic Surgeon [phone] [place] Clean Rice Grader And Reel Tender DENISE GANNON Pain Management Assessment Encounter Date Assessment Date Assessment LastModified by Organization Details LastModified Time 01/02/2024 01/02/2024 Assessment: Nicotine smoke: 1 ppd [id number] = 46 pack years Cough Dyspnea Plan: The following were reviewed and explained to the patient: primary care/referral note Chest CT 04/02/23 R>L small effusions Chest 1 view 04/02/23 bilateral small effusions Chest 2 views 05/21/23 no acute disease Chest 2 views 05/22/23 no acute disease Cough/Dyspnea workup will be done as follows: Respiratory allergen panel for [facility] Serum IgE Serum total IgG, IgG1, IgG2, IgG3, IgG4 Jjswh-[id number] n phenotype and level TB stimulated gamma interferon B-type natriuretic peptide (BNP) Eosinophil count Complete pulmonary function testing (PFT) Advised to continue not to smoke. Adherence to therapy is advocated. Nonadherence may lead to treatment failure, further progression of the condition, and other complications. Hospitals admissions are often the result of individuals not taking prescription medications accurately. Alternatively, greater adherence to medication regimens have shown to lower rates of hospitalization and decrease total medical costs in patients with chronic medical conditions. Advocated influenza vaccination annually and pneumonia vaccination YANG. Advocated weight loss through diet and exercise. Patient's ideal body weight according to height and gender is up to 110 lbs. Encouraged patient to adjust caloric intake to maintain/achieve ideal body weight, emphasizing on fruits, vegetables, whole grains, and fat-free or low-fat products. These include lean meats, poultry, fish, beans, eggs, and nuts and foods that are low in saturated fats, trans-fats, cholesterol, salt (sodium), and glycemic index. Stressed the importance of regular exercise up to the patient's capacity limits. In this case, we recommend regular (4 x a week or more) walking or other light activity. Patient to monitor BP daily and bring records to PCP for further management. Follow-up: 1 week after PFT Not available 01/02/2024 10:52:25 02/04/2024 02/04/2024 Assessment: Nicotine smoke: 1 ppd [id number] = 46 pack years Mild COPD Hypogammaglobuline bro (+) Quantiferon TB Gold plus Multiple environmental allergies CHF Plan: The following were reviewed and explained to the patient: Chest CT 04/02/23 R>L small effusions Chest 1 view 04/02/23 bilateral small effusions Chest 2 views 05/21/23 no acute disease Chest 2 views 05/22/23 no acute disease Lab data 01/02/24 elevated BNP, multiple environmental allergies, (+) Quantiferon TB Gold, low IgG, low IgG1 PFT 01/31/24 FEV1 1.67 L (112%) Lab data 01/02/24 elevated BNP, multiple environmental allergies, (+) Quantiferon TB Gold plus, hypogammaglobuline bro, Patient will be referred to Dr. Jesus Goodrich @ [address] [place] [address], [address], [place] [address], [place] , for Infectious Disease consultation regarding (+) Quantiferon TB Gold plus. General information on COPD was covered. Educational video was shown. The video explained what COPD is and how it affects breathing. Self-care skills such as not smoking, using medications as prescribed, oxygen therapy, and knowing when to contact the healthcare provider are covered. Diaphragmatic breathing and pursed lip breathing are explained and demonstrated. Positive lifestyle changes are introduced. Following these self-care skills will help in the management of COPD so the patient can stay out of the hospital. Advised to continue not to smoke. General information on COPD was covered. Educational video was shown. The video explained what COPD is and how it affects breathing. Self-care skills such as not smoking, using medications as prescribed, oxygen therapy, and knowing when to contact the healthcare provider are covered. Diaphragmatic breathing and pursed lip breathing are explained and demonstrated. Positive lifestyle changes are introduced. Following these self-care skills will help in the management of COPD so the patient can stay out of the hospital. Albuterol HFA as needed. Adherence to therapy is advocated. Nonadherence may lead to treatment failure, further progression of the condition, and other complications. Hospitals admissions are often the result of individuals not taking prescription medications accurately. Alternatively, greater adherence to medication regimens have shown to lower rates of hospitalization and decrease total medical costs in patients with chronic medical conditions. Advocated influenza vaccination annually and pneumonia vaccination YANG. Advocated weight loss through diet and exercise. Patient's ideal body weight according to height and gender is up to 110 lbs. Encouraged patient to adjust caloric intake to maintain/achieve ideal body weight, emphasizing on fruits, vegetables, whole grains, and fat-free or low-fat products. These include lean meats, poultry, fish, beans, eggs, and nuts and foods that are low in saturated fats, trans-fats, cholesterol, salt (sodium), and glycemic index. Stressed the importance of regular exercise up to the patient's capacity limits. In this case, we recommend regular (4 x a week or more) walking or other light activity. Patient to monitor BP daily and bring records to PCP for further management. Follow-up: 1 week after Infectious Disease consult Not available 02/04/2024 15:11:54 04/24/2024 04/24/2024 08/14/2022: A1C 6.4 03/22/2023: TSH/FT4: WNL Lipids: Stable TP 5.8, glob 2.2 HGB 11.2 04/19/2023: A1C 6.6 BUN/Cr 20/1.32, GFR 38 09/13/2023: A1C 6.0 Gluc 119, BUN 27, Cr 1.28, GFR 40, glob 2.4 12/25/2023: A1C 6.2H HGB 11.8 TP 5.8L/2.2L Not available 04/23/2024 16:46:00 06/18/2024 06/18/2024 84-year-old femjennifer altaorre presents for evaluation of her left hip, although she states today that her whole body hurts . She reports that she fell out of bed at the end of April and has had pain in her hip since. She saw her primary care doctor and she also currently sees pain management. She is taking oxycodone and gabapentin. There is no focal location of pain. She currently rates her pain as 10/10. Review of systems per patient questionnaire On exam, she is in the room with a wheelchair and has a significantly antalgic gait, however she was seen walking into and out of the office with a nonantalgic gait without any assistive devices. She was also able to weightbear without any difficulty moving around the room when she was demonstrating the manner which she fell out of bed. She has tenderness over the greater trochanter, no pain with hip range of motion. She has reported radiating pain down both legs and has positive straight leg raise bilaterally. Sensation intact to light touch throughout. X-rays of hip were obtained reviewed, demonstrating no acute bony abnormality. We discussed that her hip appears to have no acute abnormality, and we would not recommend surgery or any other intervention for the hip. With regards to her whole-body pain and multiple other complaints, she should follow-up with her primary doctor and continue to see her painter apprentice. We discussed that the radiating leg pain is likely coming from her back, and her painter apprentice would be able to manage that. [email or web address] Not available 06/18/2024 15:18:39 08/28/2024 08/28/2024 08/14/2022: A1C 6.4 03/22/2023: TSH/FT4: WNL Lipids: Stable TP 5.8, glob 2.2 HGB 11.2 04/19/2023: A1C 6.6 BUN/Cr 20/1.32, GFR 38 09/13/2023: A1C 6.0 Gluc 119, BUN 27, Cr 1.28, GFR 40, glob 2.4 12/25/2023: A1C 6.2H HGB 11.8 TP 5.8L/2.2L 05/12/2024: A1C 6.4 Gluc 106, BUN 25, GFR 42 Not available 08/28/2024 17:01:38 Plan of Treatment Reminders Order Date Submit Date Provider Last Modified By Organization Details Last Modified Time Details Appointments Any 15 2024 04:15P Delon baez MD Not available Not available Not available New Patient 40 2024 04:00P M Salma Buckley, PMHNP Not available Not available Not available Lab lipid panel, serum [address] (Lab), [address] [place], [address], 08/28/2024 17:30:24 CMP, serum or plasma [address] (Lab), [address] [place], [address], 08/28/2024 17:30:24 CBC w/ auto diff [address] (Lab), [address] [place], [address], 08/28/2024 17:30:25 TSH, serum or plasma [address], [address] [place], [address], 08/28/2024 17:30:25 T4, free, serum [address], [address] [place], [address], 08/28/2024 17:30:25 HbA1c (hemoglob in A1c), blood [address], [address] [place], [address], 08/28/2024 17:30:24 lipid panel, serum 2023 024 [facility] (Lab), [address] [place], [address], 05/12/2024 14:04:16 CMP, serum or plasma 2023 024 [facility] (Lab), [address] [place], [address], 05/12/2024 14:04:26 CBC w/ auto diff 2023 024 [facility] (Lab), [address] [place], [address], 05/12/2024 13:18:41 TSH, serum or plasma 2023 024 [facility], [address] [place], [address], 05/12/2024 14:31:06 T4, free, serum 2023 024 [facility], [address] [place], [address], 05/12/2024 14:24:49 HbA1c (hemoglob in A1c), blood 2023 024 [facility], [address] [place], [address], 05/13/2024 10:38:27 alpha-1-a ntitrypsi n (aat) phenotype , serum 2023 024 [facility] Outpatient Lab, [address] [place], [address], 01/21/2024 17:14:46 BNP (B-type natriuret ic peptide), serum or plasma 2023 024 [facility] Outpatient Lab, [address] [place], [address], 01/02/2024 13:31:02 ige, total, serum 2023 024 [email or web address] 5 [facility] Outpatient Lab, [address] [place], [address], 03/18/2024 12:30:19 tb (M tuberculo sis), ifn-gamma germain, blood 2023 024 [email or web address] 5 [facility] Outpatient Lab, [address] [place], [address], 03/18/2024 12:30:19 eosinophi l count, manual, blood (OBS) 2023 024 [email or web address] 5 [facility] Outpatient Lab, [address] [place], [address], 03/18/2024 12:30:19 [address]cl[address] s 1+2+3+4, serum 2023 024 [email or web address] 5 [facility] Outpatient Lab, [address] [place], [address], 03/18/2024 12:30:20 respirato ry allergen panel - [facility] a 2023 024 [email or web address] 5 [facility] Outpatient Lab, [address] [place], [address], 03/18/2024 12:30:20 respirato ry allergen panel - [facility] b [email or web address] [place] [address] Outpatient Lab, [address] [place], [address], 03/18/2024 12:30:20 Referral gastroent erologist referral - Please call patient to schedule. 2023 024 [email or web address] Tony Carola, [address] [facility] [address], [address], 01/05/2025 09:34:01 podiatris t referral - Please call patient to schedule. 2023 024 [email or web address] Denny Thacker DPM, [address] [facility], [address], [place], [address], 11/06/2024 10:04:43 nephrolog ist referral - Please call patient to schedule. 2023 024 [email or web address] Zbigniew Wakefield MD (Nephrology, [address], [address], [place], [address], 09/02/2024 08:42:55 psychiatr ist referral - Please call patient to schedule. 2023 024 [email or web address] Salma Benjaminkeven Pmhnp, [address] [facility] [address], [place], [address], 01/05/2025 09:34:11 cardiolog ist referral 2023 024 [email or web address] Jordin Lew MD, [address] [facility], [address], [place], [address], 09/02/2024 08:35:58 gastroent erologist referral 2023 024 [email or web address] Nicole Srivastava MD, [address] [facility], [address], [place], [address], 10/23/2024 18:35:14 orthopedi c surgeon referral 2023 024 YUAN Schneider MD, [address] [facility], [place], [address], 06/18/2024 15:36:39 podiatris t referral 2023 024 [email or web address] Denny Thacker DPM, [address] [facility], [address], [place], [address], 10/23/2024 18:35:13 nephrolog ist referral 2023 024 [email or web address] Zbigniew Wakefield MD (Nephrology, [address], [address], [place], [address], 10/23/2024 18:34:45 cardiolog ist referral 2023 024 [email or web address] Jordin Lew MD, [address], [address], [place], [address], 08/25/2024 08:57:41 infectiou s disease specialis t referral 2023 024 [email or web address] 5 Jesus Goodrich MD, [address] [facility] , [address], [place], [address], 03/13/2024 14:38:42 Procedures None recorded. Surgeries None recorded. Imaging None recorded. Medication Orders albuterol sulfate 90 mcg/actua tion breath activated powder inhaler 2023 024 [id number], [address] [facility], [place], [place], [id number], 02/04/2024 15:34:12 Patient TargetsNo targets recorded. Patient Instructions Encounter Date Encounter Id Patient Instructions Last Modified By Organization Details Last Modified Time 01/02/2024 [id number] complete PFT w/ post bronchodilator spirometry* YUAN Not available 02/04/2024 18:25:05 04/24/2024 [id number] dementia rating scale-2* [email or web address] Not available 04/24/2024 17:44:45 alcohol misuse* [email or web address] Not available 04/24/2024 17:44:54 depression screening* [email or web address] Not available 04/29/2024 13:06:00 Timed Up and Go test (TUG)* [email or web address] Not available 04/24/2024 17:51:49 multi-dimensiona l health assessment questionnaire* [email or web address] Not available 04/29/2024 13:05:54 diabetic eye exam* Not availa ble 10/21/2024 10:21:02 Personalized a lt Plan and Screening Recommendations Advance Directives - Do you have one? Yes Advance Directives - Do we have your advance directive on file in your health record? No, please bring in a copy at your earliest convenience Primary Prevention/Interven tion (prevents or decreases the chance of common diseases from occurring) Smoking Risk: Non Smoker Alcohol Misuse Screening: Negative Weight: Appropriate Physical activity: Need more exercise/physical activity decrease sitting time to no more than 5hr/day Nutrition: Good Average Refer to attached handout Heart-Healthy Diet: After Your Visit Refer to attached handout DASH Diet: After Your Visit Fall Risk (screened today): High Refer to attached handout Preventing Falls: After your Visit Vaccines Pneumococcal: Ordered Recommended today Influenza: Your next one in the fall of this year Chronic Disease Risks Stroke: Low Risk Intermediate Risk Heart Attack: Low risk Intermediate Risk Clogging of the Arteries: High risk Diabetes: High Risk I have no recommendations Ref er to attached handout Pre-diabetes: After Your Visit Drastically limit sugar and products made with any type of flour (bread, pasta, cereal, cookies, crackers, etc.) Secondary Prevention/Interven tion (detects treatable diseases before they may cause symptoms, disability, or ) Breast Cancer Screening with mammogram: No screening necessary Cervical/Uterine/Ov jn Cancer Screening: No screening necessary Osteoporosis Screening: Your next DEXA in: Ordered Date Screening Last Performed: Colon Cancer Screening: No screening necessary declined Eye Disease Screening: Ordered Recommended today Dementia Risk: High I have no recommendations Depression Screening: Negative Positive Active diagnosis, Continue current treatment plan [email or web address] Not available 04/24/2024 17:51:09 08/28/2024 [id number] diabetic eye exam* [email or web address] Not availa ble 08/28/2024 17:32:18 Reason for Referral Infectious Disease Specialis t Referral for Exposure to tuberculosis Referring Physician: Manuela Alvarez, Pulmonary Disease, Encounter Date: 02/04/2024 Employer Relations Representative Referral for Hype rglycemia Referring Physician: Jarret Byrd Internal Medicine, Encounter Date: 04/24/2024 Clean Rice Grader And Reel Tender Referral for Ch ronic kidney disease Referring Physician: Jarret Byrd Internal Medicine, Encounter Date: 04/24/2024 Type Casting Machine Operator 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 Referring Physician: Jarret Byrd Internal Medicine, Encounter Date: 08/28/2024 Clean Rice Grader And Reel Tender Referral for Ch ronic kidney disease Please call patient to schedule. 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 Referring Physician: Jarret Byrd Internal Medicine, Encounter Date: 08/28/2024 Entry Level Machine Operator Referral for Co ronary arteriosclerosis Referring Physician: Jarret Byrd Internal Medicine, Encounter Date: 08/28/2024 Psychiatrist Referral for Ge neralized anxiety disorder Please call patient to schedule. Referring Physician: Jarret Byrd Internal Medicine, Encounter Date: 08/28/2024 Results Created Date Observation Date Name Description Value Unit Range Abnormal Flag Note LastModifiedBy Organization Detail LastModifiedTime 12/25/19 24 12/25/2023 LIPID PANEL cholesterol 118 mg/dL 140-19 9 low NIH ISAIAS NSUS RECOM MENDA TION FOR MARIN STERO L: ADULT CHILD LOW RISK: <200 <170 BORDE RLINE : <200- 239 ----- HIGH RISK: >240 >200 Not Available [facility] (Lab) [address] [place], [address], 12/25/2023 11:27:51 12/25/19 24 12/25/2023 LIPID PANEL triglyceride s 91 mg/dL 0-150 NIH ISAIAS NSUS REPOR T RECOM MENDA TION FOR TRIGL YCERI EDIE: ADULT CHILD LOW RISK: <150 ----- BODER LINE: 150-1 99 ----- HIGH RISK: >200 ----- Not Available [facility] (Lab) [address] [place], [address], 12/25/2023 11:27:51 12/25/19 24 12/25/2023 LIPID PANEL HDL cholesterol 56 mg/dL 40- Not Available [facility] (Lab) [address] [place], [address], 12/25/2023 11:27:51 12/25/19 24 12/25/2023 LIPID PANEL LDL cholesterol, calculated 44 mg/dL 0-130 NIH ISAISA NSUS REPOR T RECOM MENDA TIONS FOR LDL: ADULT CHILD LOW RISK <130 <110 (OPTI MAL LDL) <100 ----- BORDE RLINE : 130-1 59 ----- HIGH RISK: >160 >130 A TRIGL YCERI DE RESUL T >400 INVAL IDATE S THE CALCU LATIO N FOR LDL FRACT IONAT ION - THE LDL RESUL T WILL NOT BE REPOR LISA. Not Available [facility] (Lab) [address] [place], [address], 12/25/2023 11:27:51 12/25/19 24 12/25/2023 COMPR EHENS HEATHER METAB OLIC PANEL sodium 139 mmol/ L 137-14 5 Not Available [facility] (Lab) [address] [place], [address], 12/25/2023 11:28:02 12/25/19 24 12/25/2023 COMPR EHENS HEATHER METAB OLIC PANEL potassium 4.1 mmol/ L 3.5-5. 1 Not Available [facility] (Lab) [address] [place], [address], 12/25/2023 11:28:02 12/25/19 24 12/25/2023 COMPR EHENS HEATHER METAB OLIC PANEL chloride 105 mmol/ L 98-107 Not Available [facility] (Lab) [address] [place], [address], 12/25/2023 11:28:02 12/25/19 24 12/25/2023 COMPR EHENS HEATHER METAB OLIC PANEL carbon dioxide 29 mmol/ L 22-30 Not Available [facility] (Lab) [address] [place], [address], 12/25/2023 11:28:02 12/25/19 24 12/25/2023 COMPR EHENS HEATHER METAB OLIC PANEL anion gap 9.1 mmol/ L 14-22 low Not Available [facility] (Lab) [address] [place], [address], 12/25/2023 11:28:02 12/25/19 24 12/25/2023 COMPR EHENS HEATHER METAB OLIC PANEL glucose 85 mg/dL 70-99 Not Available [facility] (Lab) [address] [place], [address], 12/25/2023 11:28:02 12/25/19 24 12/25/2023 COMPR EHENS HEATHER METAB OLIC PANEL BUN 19 mg/dL 8-19 Not Available [facility] (Lab) [address] [place], [address], 12/25/2023 11:28:02 12/25/19 24 12/25/2023 COMPR EHENS HEATHER METAB OLIC PANEL creatinine 1.08 mg/dL 0.66-1 .25 Not Available [facility] (Lab) [address] [place], [address], 12/25/2023 11:28:02 12/25/19 24 12/25/2023 COMPR EHENS HEATHER METAB OLIC PANEL GFR 48 Refer ence Range : Cunningham ge GFR Healt hy Adult : >60 mL/mi n/1.7 3 m2 Chron ic Kidne y Disea se: 15-60 mL/mi n/1.7 3 m2 Kidne y Failu re: <15/m L/min /1.73 m2 www.n iddk. nih.g ov The MDRD study equat ion has not been valid ated in child rika <18 years of age; pregn ant women ; the elder ly >85 years of age; or in some racia l or ethni c subgr oups, such as Hispa nics. Outsi de the valid ated rober eters , estim ated GFR is less accur ate, requi ring clini jose l judgm ent on a case- by-ca se basis . Clini jose l inter preta tion for other races and ages must be made by the clini sarkis. The MDRD study equat ion has not been valid ated for the evalu ation of serum creat inine relat ed to nutri hiro l statu s or medic ation usage . For perso ns <18 years of age, a pedia tric GFR calcu lator is avail able on the [facility] websi te: https ://mahesh w.nereida barone.o rg/pr ofess ional s/kdo qi/gf r_cal culat or Not Available [facility] (Lab) [address] [place], [address], 12/25/2023 11:28:02 12/25/19 24 12/25/2023 COMPR EHENS HEATHER METAB OLIC PANEL alkaline phosphatase 90 U/L 38-126 Not Available [facility] (Lab) [address] [place], [address], 12/25/2023 11:28:02 12/25/19 24 12/25/2023 COMPR EHENS HEATHER METAB OLIC PANEL alanine aminotransfe rase 14 U/L 0-35 Not Available [facility] (Lab) [address] [place], [address], 12/25/2023 11:28:02 12/25/19 24 12/25/2023 COMPR EHENS HEATHER METAB OLIC PANEL aspartate aminotransfe rase 27 U/L 15-37 Not Available [facility] (Lab) [address] [place], [address], 12/25/2023 11:28:02 12/25/19 24 12/25/2023 COMPR EHENS HEATHER METAB OLIC PANEL bilirubin, total 0.40 mg/dL 0.20-1 .30 Not Available [facility] (Lab) [address] [place], [address], 12/25/2023 11:28:02 12/25/19 24 12/25/2023 COMPR EHENS HEATHER METAB OLIC PANEL calcium 9.6 mg/dL 8.4-10 .2 Not Available [facility] (Lab) [address] [place], [address], 12/25/2023 11:28:02 12/25/19 24 12/25/2023 COMPR EHENS HEATHER METAB OLIC PANEL total protein 5.8 g/dL 6.3-8. 2 low Not Available [facility] (Lab) [address] [place], [address], 12/25/2023 11:28:02 12/25/19 24 12/25/2023 COMPR EHENS HEATHER METAB OLIC PANEL albumin 3.6 g/dL 3.0-4. 4 Not Available [facility] (Lab) [address] [place], [address], 12/25/2023 11:28:02 12/25/19 24 12/25/2023 COMPR EHENS HEATHER METAB OLIC PANEL globulin 2.2 g/dL 2.6-4. 2 low Not Available [facility] (Lab) [address] [place], [address], 12/25/2023 11:28:02 12/25/19 24 12/25/2023 COMPR EHENS HEATHER METAB OLIC PANEL A/G ratio 1.6 ratio 1.0-2. 0 Not Available [facility] (Lab) [address] [place], [address], 12/25/2023 11:28:02 12/25/19 24 12/25/2023 CBC/C OMPLE TE BLD COUNT W/DIF F white blood cells 8.5 x10'3 /uL 4.2-10 .8 Not Available [facility] (Lab) [address] [place], [address], 12/25/2023 11:30:13 12/25/19 24 12/25/2023 CBC/C OMPLE TE BLD COUNT W/DIF F red blood cells 4.29 x10'6 /uL 3.80-5 .20 Not Available [facility] (Lab) [address] [place], [address], 12/25/2023 11:30:13 12/25/19 24 12/25/2023 CBC/C OMPLE TE BLD COUNT W/DIF F hemoglobin 11.8 g/dL 12.0-1 5.6 low Not Available [facility] (Lab) [address] [place], [address], 12/25/2023 11:30:13 12/25/19 24 12/25/2023 CBC/C OMPLE TE BLD COUNT W/DIF F hematocrit 38.4 % 35.7-4 5.7 Not Available [facility] (Lab) [address] [place], [address], 12/25/2023 11:30:13 12/25/19 24 12/25/2023 CBC/C OMPLE TE BLD COUNT W/DIF F mean red cell volume 89.5 fL 82.0-9 9.0 Not Available [facility] (Lab) [address] [place], [address], 12/25/2023 11:30:13 12/25/19 24 12/25/2023 CBC/C OMPLE TE BLD COUNT W/DIF F mean red cell hemoglobin 27.5 pg 27.0-3 3.0 Not Available [facility] (Lab) [address] [place], [address], 12/25/2023 11:30:13 12/25/19 24 12/25/2023 CBC/C OMPLE TE BLD COUNT W/DIF F mean RBC HGB concentratio n 30.7 g/dL 31.0-3 6.0 low Not Available [facility] (Lab) [address] [place], [address], 12/25/2023 11:30:13 12/25/19 24 12/25/2023 CBC/C OMPLE TE BLD COUNT W/DIF F red cell distribution width 14.8 % 11.8-1 5.5 Not Available [facility] (Lab) [address] [place], [address], 12/25/2023 11:30:13 12/25/19 24 12/25/2023 CBC/C OMPLE TE BLD COUNT W/DIF F platelets 169 x10'3 /uL 150-40 0 Not Available [facility] (Lab) [address] [place], [address], 12/25/2023 11:30:13 12/25/19 24 12/25/2023 CBC/C OMPLE TE BLD COUNT W/DIF F mean platelet volume 13.4 fL 9.0-12 .4 high Not Available [facility] (Lab) [address] [place], [address], 12/25/2023 11:30:13 12/25/19 24 12/25/2023 CBC/C OMPLE TE BLD COUNT W/DIF F neutrophils 60.9 % 39.0-7 2.0 Not Available [facility] (Lab) [address] [place], [address], 12/25/2023 11:30:13 12/25/19 24 12/25/2023 CBC/C OMPLE TE BLD COUNT W/DIF F lymphocytes 25.8 % 16.0-4 7.0 Not Available [facility] (Lab) [address] [place], [address], 12/25/2023 11:30:13 12/25/19 24 12/25/2023 CBC/C OMPLE TE BLD COUNT W/DIF F monocytes 9.8 % 5.0-12 .0 Not Available [facility] (Lab) [address] [place], [address], 12/25/2023 11:30:13 12/25/19 24 12/25/2023 CBC/C OMPLE TE BLD COUNT W/DIF F eosinophils 2.8 % 1.0-7. 0 Not Available [facility] (Lab) [address] [place], [address], 12/25/2023 11:30:13 12/25/19 24 12/25/2023 CBC/C OMPLE TE BLD COUNT W/DIF F basophils 0.5 % 0.0-2. 0 Not Available [facility] (Lab) [address] [place], [address], 12/25/2023 11:30:13 12/25/19 24 12/25/2023 CBC/C OMPLE TE BLD COUNT W/DIF F immature granulocytes 0.2 % 0.00-0 .50 Not Available [facility] (Lab) [address] [place], [address], 12/25/2023 11:30:13 12/25/19 24 12/25/2023 CBC/C OMPLE TE BLD COUNT W/DIF F neutrophils, absolute count 5.14 x10'3 /uL 1.5-8. 0 Not Available [facility] (Lab) [address] [place], [address], 12/25/2023 11:30:13 12/25/19 24 12/25/2023 CBC/C OMPLE TE BLD COUNT W/DIF F lymphocytes, absolute count 2.18 x10'3 /uL 1.07-3 .43 Not Available [facility] (Lab) [address] [place], [address], 12/25/2023 11:30:13 12/25/19 24 12/25/2023 CBC/C OMPLE TE BLD COUNT W/DIF F monocytes, absolute count 0.83 x10'3 /uL 0.29-0 .99 Not Available [facility] (Lab) [address] [place], [address], 12/25/2023 11:30:13 12/25/19 24 12/25/2023 CBC/C OMPLE TE BLD COUNT W/DIF F eosinophils, absolute count 0.24 x10'3 /uL 0.02-0 .53 Not Available [facility] (Lab) [address] [place], [address], 12/25/2023 11:30:13 12/25/19 24 12/25/2023 CBC/C OMPLE TE BLD COUNT W/DIF F basophils, absolute count 0.04 x10'3 /uL 0.01-0 .08 Not Available [facility] (Lab) [address] [place], [address], 12/25/2023 11:30:13 12/25/19 24 12/25/2023 CBC/C OMPLE TE BLD COUNT W/DIF F immature granulocytes ,absolute 0.02 x10'3 /uL 0.00-0 .05 Not Available [facility] (Lab) [address] [place], [address], 12/25/2023 11:30:13 12/25/19 24 12/25/2023 CBC/C OMPLE TE BLD COUNT W/DIF F nucleated red blood cells 0.0 % -0 Not Available [facility] (Lab) [address] [place], [address], 12/25/2023 11:30:13 12/25/19 24 12/25/2023 CBC/C OMPLE TE BLD COUNT W/DIF F NRBC# 0.00 x10'3 /uL Not Available [facility] (Lab) [address] [place], [address], 12/25/2023 11:30:13 12/25/19 24 12/25/2023 T4 FREE free T4 1.07 NG/dL 0.78-2 .19 Not Available [facility] (Lab) [address] [place], [address], 12/25/2023 11:43:53 12/25/19 24 12/25/2023 TSH thyroid-stim ulating hormone 3.270 uIU/m L 0.465- 4.680 Not Available [facility] (Lab) [address] [place], [address], 12/25/2023 11:58:39 12/25/19 24 12/25/2023 HEMOG LOBIN A1C HA1C 6.2 % 4.0-6. 0 high Diabe theresa Scree tess Crite teodoro: <5.7% Consi stent with absen ce of diabe theresa 5.7-6 .4% Consi stent with incre ased risk for diabe theresa (pred iabet es) >OR=6 .5% Consi stent with diabe theresa REFER ENCE: Diabe theresa Care 2015, 39(Lyles ppl.1 ):s13 -s22 Not Available [facility] (Lab) [address] [place], [address], 12/25/2023 20:28:28 05/12/20 24 05/12/2024 CBC/C OMPLE TE BLD COUNT W/DIF F white blood cells 8.8 x10'3 /uL 4.2-10 .8 Not Available [facility] (Lab) [address] [place], [address], 05/12/2024 13:18:41 05/12/20 24 05/12/2024 CBC/C OMPLE TE BLD COUNT W/DIF F red blood cells 4.69 x10'6 /uL 3.80-5 .20 Not Available [facility] (Lab) [address] [place], [address], 05/12/2024 13:18:41 05/12/20 24 05/12/2024 CBC/C OMPLE TE BLD COUNT W/DIF F hemoglobin 13.6 g/dL 12.0-1 5.6 Not Available [facility] (Lab) [address] [place], [address], 05/12/2024 13:18:41 05/12/20 24 05/12/2024 CBC/C OMPLE TE BLD COUNT W/DIF F hematocrit 43.6 % 35.7-4 5.7 Not Available [facility] (Lab) [address] [place], [address], 05/12/2024 13:18:41 05/12/20 24 05/12/2024 CBC/C OMPLE TE BLD COUNT W/DIF F mean red cell volume 93.0 fL 82.0-9 9.0 Not Available [facility] (Lab) [address] [place], [address], 05/12/2024 13:18:41 05/12/20 24 05/12/2024 CBC/C OMPLE TE BLD COUNT W/DIF F mean red cell hemoglobin 29.0 pg 27.0-3 3.0 Not Available [facility] (Lab) [address] [place], [address], 05/12/2024 13:18:41 05/12/20 24 05/12/2024 CBC/C OMPLE TE BLD COUNT W/DIF F mean RBC HGB concentratio n 31.2 g/dL 31.0-3 6.0 Not Available [facility] (Lab) [address] [place], [address], 05/12/2024 13:18:41 05/12/20 24 05/12/2024 CBC/C OMPLE TE BLD COUNT W/DIF F red cell distribution width 14.0 % 11.8-1 5.5 Not Available [facility] (Lab) [address] [facility] [place], [address], 05/12/2024 13:18:41 05/12/20 24 05/12/2024 CBC/C OMPLE TE BLD COUNT W/DIF F platelets 202 x10'3 /uL 150-40 0 Not Available [facility] (Lab) [address] [place], [address], 05/12/2024 13:18:41 05/12/20 24 05/12/2024 CBC/C OMPLE TE BLD COUNT W/DIF F mean platelet volume 12.6 fL 9.0-12 .4 high Not Available [facility] (Lab) [address] [place], [address], 05/12/2024 13:18:41 05/12/20 24 05/12/2024 CBC/C OMPLE TE BLD COUNT W/DIF F neutrophils 59.2 % 39.0-7 2.0 Not Available [facility] (Lab) [address] [place], [address], 05/12/2024 13:18:41 05/12/20 24 05/12/2024 CBC/C OMPLE TE BLD COUNT W/DIF F lymphocytes 28.4 % 16.0-4 7.0 Not Available [facility] (Lab) [address] [place], [address], 05/12/2024 13:18:41 05/12/20 24 05/12/2024 CBC/C OMPLE TE BLD COUNT W/DIF F monocytes 9.9 % 5.0-12 .0 Not Available [facility] (Lab) [address] [place], [address], 05/12/2024 13:18:41 05/12/20 24 05/12/2024 CBC/C OMPLE TE BLD COUNT W/DIF F eosinophils 1.6 % 1.0-7. 0 Not Available [facility] (Lab) [address] [place], [address], 05/12/2024 13:18:41 05/12/20 24 05/12/2024 CBC/C OMPLE TE BLD COUNT W/DIF F basophils 0.6 % 0.0-2. 0 Not Available [facility] (Lab) [address] [place], [address], 05/12/2024 13:18:41 05/12/20 24 05/12/2024 CBC/C OMPLE TE BLD COUNT W/DIF F immature granulocytes 0.3 % 0.00-0 .50 Not Available [facility] (Lab) [address] [place], [address], 05/12/2024 13:18:41 05/12/20 24 05/12/2024 CBC/C OMPLE TE BLD COUNT W/DIF F neutrophils, absolute count 5.22 x10'3 /uL 1.5-8. 0 Not Available [facility] (Lab) [address] [place], [address], 05/12/2024 13:18:41 05/12/20 24 05/12/2024 CBC/C OMPLE TE BLD COUNT W/DIF F lymphocytes, absolute count 2.50 x10'3 /uL 1.07-3 .43 Not Available [facility] (Lab) [address] [place], [address], 05/12/2024 13:18:41 05/12/20 24 05/12/2024 CBC/C OMPLE TE BLD COUNT W/DIF F monocytes, absolute count 0.87 x10'3 /uL 0.29-0 .99 Not Available [facility] (Lab) [address] [place], [address], 05/12/2024 13:18:41 05/12/20 24 05/12/2024 CBC/C OMPLE TE BLD COUNT W/DIF F eosinophils, absolute count 0.14 x10'3 /uL 0.02-0 .53 Not Available [facility] (Lab) [address] [place], [address], 05/12/2024 13:18:41 05/12/20 24 05/12/2024 CBC/C OMPLE TE BLD COUNT W/DIF F basophils, absolute count 0.05 x10'3 /uL 0.01-0 .08 Not Available [facility] (Lab) [address] [place], [address], 05/12/2024 13:18:41 05/12/20 24 05/12/2024 CBC/C OMPLE TE BLD COUNT W/DIF F immature granulocytes ,absolute 0.03 x10'3 /uL 0.00-0 .05 Not Available [facility] (Lab) [address] [place], [address], 05/12/2024 13:18:41 05/12/20 24 05/12/2024 CBC/C OMPLE TE BLD COUNT W/DIF F nucleated red blood cells 0.0 % -0 Not Available [facility] (Lab) [address] [place], [address], 05/12/2024 13:18:41 05/12/20 24 05/12/2024 CBC/C OMPLE TE BLD COUNT W/DIF F NRBC# 0.00 x10'3 /uL Not Available [facility] (Lab) [address] [place], [address], 05/12/2024 13:18:41 05/12/20 24 05/12/2024 LIPID PANEL cholesterol 151 mg/dL 140-19 9 NIH ISAIAS NSUS RECOM MENDA TION FOR MARIN STERO L: ADULT CHILD LOW RISK: <200 <170 BORDE RLINE : <200- 239 ----- HIGH RISK: >240 >200 Not Available [facility] (Lab) [address] [place], [address], 05/12/2024 14:04:16 05/12/20 24 05/12/2024 LIPID PANEL triglyceride s 111 mg/dL 0-150 NIH ISAIAS NSUS REPOR T RECOM MENDA TION FOR TRIGL YCERI EDIE: ADULT CHILD LOW RISK: <150 ----- BODER LINE: 150-1 99 ----- HIGH RISK: >200 ----- Not Available [facility] (Lab) [address] [place], [address], 05/12/2024 14:04:16 05/12/20 24 05/12/2024 LIPID PANEL HDL cholesterol 63 mg/dL 40- Not Available [facility] (Lab) [address] [place], [address], 05/12/2024 14:04:16 05/12/20 24 05/12/2024 LIPID PANEL LDL cholesterol, calculated 66 mg/dL 0-130 NIH ISAIAS NSUS REPOR T RECOM MENDA TIONS FOR LDL: ADULT CHILD LOW RISK <130 <110 (OPTI MAL LDL) <100 ----- BORDE RLINE : 130-1 59 ----- HIGH RISK: >160 >130 A TRIGL YCERI DE RESUL T >400 INVAL IDATE S THE CALCU LATIO N FOR LDL FRACT IONAT ION - THE LDL RESUL T WILL NOT BE REPOR LISA. Not Available [facility] (Lab) [address] [place], [address], 05/12/2024 14:04:16 05/12/20 24 05/12/2024 COMPR EHENS HEATHER METAB OLIC PANEL sodium 134 mmol/ L 137-14 5 low Not Available [facility] (Lab) [address] [place], [address], 05/12/2024 14:04:26 05/12/20 24 05/12/2024 COMPR EHENS HEATHER METAB OLIC PANEL potassium 4.7 mmol/ L 3.5-5. 1 Not Available [facility] (Lab) [address] [place], [address], 05/12/2024 14:04:26 05/12/20 24 05/12/2024 COMPR EHENS HEATHER METAB OLIC PANEL chloride 98 mmol/ L 98-107 Not Available [facility] (Lab) [address] [place], [address], 05/12/2024 14:04:26 05/12/20 24 05/12/2024 COMPR EHENS HEATHER METAB OLIC PANEL carbon dioxide 30 mmol/ L 22-30 Not Available [facility] (Lab) [address] [place], [address], 05/12/2024 14:04:26 05/12/20 24 05/12/2024 COMPR EHENS HEATHER METAB OLIC PANEL anion gap 10.7 mmol/ L 14-22 low Not Available [facility] (Lab) [address] [place], [address], 05/12/2024 14:04:26 05/12/20 24 05/12/2024 COMPR EHENS HEATHER METAB OLIC PANEL glucose 106 mg/dL 70-99 high Not Available [facility] (Lab) [address] [place], [address], 05/12/2024 14:04:26 05/12/20 24 05/12/2024 COMPR EHENS HEATHER METAB OLIC PANEL BUN 25 mg/dL 8-19 high Not Available [facility] (Lab) [address] [place], [address], 05/12/2024 14:04:26 05/12/20 24 05/12/2024 COMPR EHENS HEATHER METAB OLIC PANEL creatinine 1.22 mg/dL 0.66-1 .25 Not Available [facility] (Lab) [address] [place], [address], 05/12/2024 14:04:26 05/12/20 24 05/12/2024 COMPR EHENS HEATHER METAB OLIC PANEL GFR 42 Refer ence Range : Cunningham ge GFR Healt hy Adult : >60 mL/mi n/1.7 3 m2 Chron ic Kidne y Disea se: 15-60 mL/mi n/1.7 3 m2 Kidne y Failu re: <15/m L/min /1.73 m2 www.n [facility]. [facility].g ov The MDRD study equat ion has not been valid ated in child rika <18 years of age; pregn ant women ; the elder ly >85 years of age; or in some racia l or ethni c subgr oups, such as Hispa nics. Outsi de the valid ated rober eters , estim ated GFR is less accur ate, requi ring clini jose l judgm ent on a case- by-ca se basis . Clini jose l inter preta tion for other races and ages must be made by the clini sarkis. The MDRD study equat ion has not been valid ated for the evalu ation of serum creat inine relat ed to nutri hiro l statu s or medic ation usage . For perso ns <18 years of age, a pedia tric GFR calcu lator is avail able on the [facility] websi te: https :[email or web address] banuelos.nereida barone.o rg/pr ofess ional s/kdo qi/gf r_cal culat or Not Available [facility] (Lab) [address] [place], [address], 05/12/2024 14:04:26 05/12/20 24 05/12/2024 COMPR EHENS HEATHER METAB OLIC PANEL alkaline phosphatase 92 U/L 38-126 Not Available [facility] (Lab) [address] [place], [address], 05/12/2024 14:04:26 05/12/20 24 05/12/2024 COMPR EHENS HEATHER METAB OLIC PANEL alanine aminotransfe rase 17 U/L 0-35 Not Available [facility] (Lab) [address] [place], [address], 05/12/2024 14:04:26 05/12/20 24 05/12/2024 COMPR EHENS HEATHER METAB OLIC PANEL aspartate aminotransfe rase 28 U/L 15-37 Not Available [facility] (Lab) [address] [place], [address], 05/12/2024 14:04:26 05/12/20 24 05/12/2024 COMPR EHENS HEATHER METAB OLIC PANEL bilirubin, total 0.60 mg/dL 0.20-1 .30 Not Available [facility] (Lab) [address] [place], [address], 05/12/2024 14:04:26 05/12/20 24 05/12/2024 COMPR EHENS HEATHER METAB OLIC PANEL calcium 9.3 mg/dL 8.4-10 .2 Not Available [facility] (Lab) [address] [place], [address], 05/12/2024 14:04:26 05/12/20 24 05/12/2024 COMPR EHENS HEATHER METAB OLIC PANEL total protein 6.4 g/dL 6.3-8. 2 Not Available [facility] (Lab) [address] [place], [address], 05/12/2024 14:04:26 05/12/20 24 05/12/2024 COMPR EHENS HEATHER METAB OLIC PANEL albumin 4.2 g/dL 3.0-4. 4 Not Available [facility] (Lab) [address] [place], [address], 05/12/2024 14:04:26 05/12/20 24 05/12/2024 COMPR EHENS HEATHER METAB OLIC PANEL globulin 2.2 g/dL 2.6-4. 2 low Not Available [facility] (Lab) [address] [place], [address], 05/12/2024 14:04:26 05/12/20 24 05/12/2024 COMPR EHENS HEATHER METAB OLIC PANEL A/G ratio 1.9 ratio 1.0-2. 0 Not Available [facility] (Lab) [address] [place], [address], 05/12/2024 14:04:26 05/12/20 24 05/12/2024 T4 FREE free T4 1.12 NG/dL 0.78-2 .19 Not Available [facility] (Lab) [address] [place], [address], 05/12/2024 14:24:49 05/12/20 24 05/12/2024 TSH thyroid-stim ulating hormone 2.640 uIU/m L 0.465- 4.680 Not Available [facility] (Lab) [address] [place], [address], 05/12/2024 14:31:06 05/12/20 24 05/12/2024 HEMOG LOBIN A1C HA1C 6.4 % 4.0-6. 0 high Diabe theresa Scree tess Crite teodoro: <5.7% Consi stent with absen ce of diabe theresa 5.7-6 .4% Consi stent with incre ased risk for diabe theresa (pred iabet es) >OR=6 .5% Consi stent with diabe theresa REFER ENCE: Diabe theresa Care 2016, 39(Lyles ppl.1 ):s13 -s22 Not Available [facility] (Lab) [address] [place], [address], 05/12/2024 14:43:00 12/25/19 24 12/25/2023 XR, lumba r spine No observ ation record ed. [email or web address] [facility] [address] [place], [address], 05/19/2024 18:06:39 02/20/20 24 12/25/2023 XR, cervi jose l spine , 4 or 5 view No observ ation record ed. [address] [place], [address], 05/19/2024 18:06:52 12/25/19 24 12/25/2023 XR, shoul prasanna No observ ation record ed. [address] [place], [address], 05/19/2024 18:07:07 12/25/19 24 12/25/2023 XR, shoul prasanna No observ ation record ed. [address] [place], [address], 05/19/2024 18:07:25 12/25/19 24 12/25/2023 XR, thora cic spine No observ ation record ed. [address] [place], [address], 05/19/2024 18:07:37 02/04/20 24 01/31/2024 compl ete PFT w/ [facility] hodil ator marivel metry * No observ ation record ed. [facility] ([facility]) [address] [place], [address], 02/04/2024 18:25:05 05/21/20 24 05/21/2024 XR, hip + pelvi s, bilat eral, 3 or 4 view [facility] [address] [place] [address] [phone] Doreen t Name: NAPOLEON GARY ion #: [id number] Sex: F : 1939 4 Dictat ed By: Marcial Gibbons Attend ing Physic bola: KRYSTAL FARMER Physic bola: KRYSTAL FARMER A Exam Date: 2023 14:59 PM Exam Name: XR HIP/PE LVIS BILAT 3-4V Admitt ing Diagno sis(es ): CLINIC AL INDICA TION: low back pain TECHNI QUE: 3 radiog raphic views of the pelvis and bilate ral hips were obtain ed. Compar jamie: None FINDIN GS/IMP RESSIO N: There is no eviden ce of acute fractu re or disloc ation. Modera te bilate ral hip osteoa rthrit is. The alignm ent is anatom ical. There is no radiop aque foreig n body. Electr onical ly Signed by: Marcial Gibbons at 2023 15:57: 14 PM Page 1 [email or web address] [facility] (Imaging) [address] [place], [address], 05/22/2024 10:27:21 05/21/20 24 05/21/2024 XR, lumba r spine [facility] [address] [place] [id number] Patien t Name: NAPOLEON GARY Access ion #: [id number] Sex: F : 1939 4 Dictat ed By: Marcial Gibbons Attend ing Physic bola: KRYSTAL FARMER Orderi Physic bola: JANETKRYSTAL EDWARDS Exam Date: 2023 15:03 PM Exam Name: XR L SPINE 4V+ Admitt ing Diagno sis(es ): INDICA TION: low back pain COMPAR JAMIE: XR L SPINE 4V+ on 2023 TECHNI QUE: 3 views of the lumbar spine were obtain ed. FINDIN GS: The lumbar verteb ral alignm ent is normal . Multil evel degene rative change s most severe at L4-L5 and L5-S1 with severe spinal canal and neural forami nal stenos is. No acute fractu re, verteb ral compre ssion deform ity or aggres sive osseou s lesion s. The parave rtebra l soft tissue s are grossl y unrema rkable . IMPRES ADA: No acute fractu re or sublux ation. Electr onical ly Signed by: Marcial Gibbons at 2023 15:58: 16 PM Page 1 [email or web address] [facility] (Imaging) [address] [place], [address], 05/22/2024 10:27:22 05/21/20 24 05/21/2024 imagi ng/di agnos tic resul t No observ ation record ed. [facility] [address] [place], [address], 05/21/2024 17:01:40 05/21/20 24 05/21/2024 XR, knee, 3 view [facility] [address] [place] [address] [phone] Patien t Name: NAPOLEON GARY Access ion #: [id number] Sex: F : 1939 4 Dictat ed By: Marcial Gibbons Attend ing Physic bola: KRYSTAL FARMER Orderchelsey mejias Physic bola: KRYSTAL FARMER Exam Date: 2023 15:08 PM Exam Name: XR KNEE BILAT 3V Admitt ing Diagno sis(es ): CLINIC AL INDICA TION: pain TECHNI QUE: 3 radiog raphic views of the bilate ral knees were obtain ed. Compar jamie: None FINDIN GS/IMP RESSIO N: There is no eviden ce of acute fractu re or disloc ation. Basics maybe modera te bilate ral osteoa rthrit is. The alignm ent is anatom ical. There is no radiop aque foreig n body. Electr onical ly Signed by: Marcial Gibbons at 2023 15:59: 02 PM Page 1 [email or web address] [facility] (Imaging) [address] [place], [address], 05/22/2024 10:27:22 05/21/20 24 05/21/2024 XR, lumbo sacra l spine No observ ation record ed. [email or web address] [facility] [address] [place], [address], 05/22/2024 10:27:23 05/21/20 24 05/21/2024 imagi ng/di agnos tic resul t No observ ation record ed. [facility] [address] [place], [address], 05/21/2024 17:08:20 11/22/19 25 11/22/2024 imagi ng/di agnos tic resul t No observ ation record ed. [facility] [address] [place], [address], 11/23/2024 09:02:55 01/24/20 25 01/23/2025 imagi ng/di agnos tic resul t No observ ation record ed. [place] [address], [place], [address], 01/23/2025 13:49:25 Result Notes None recorded. Problems Name Problem SNOMED Code Status Onset Date Resolution Date Notes Provider Name and Address Organization Details Recorded Time Diverticul itis of colon 068098461 Active Not Available [facility] 4 07:37:05 Gastroesop hageal reflux disease 581036965 Active Not Available [facility] 4 07:37:06 Enthesopat hy of hip region 97477316 Active Not Available [facility] 4 07:37:06 Vitamin D deficiency 30650624 Active 2021 Not Available [facility] 4 07:37:06 Depressive disorder 49352702 Active Not Available [facility] 4 07:37:06 Coronary atheroscle rosis 680378735 Active Not Available [facility] 4 07:37:06 Hyperlipid emia 58100568 Active 2021 Not Available [facility] 4 07:37:06 Essential hypertensi on 35508513 Active Not Available [facility] 4 07:37:06 Osteoporos is 89977098 Active Not Available [facility] 4 07:37:06 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 56561596 Active 2021 Not Available [facility] 4 07:37:06 Chronic kidney disease 095710162 Active 2021 Not Available [facility] 4 07:37:06 Prediabete s 668032582 Active 2021 Not Available [facility] 4 07:37:06 Terminal esophageal web 07887951 Active 2022 Not Available [facility] 4 07:37:06 Neuropathy 912045535 Active 2022 Not Available [facility] 4 07:37:06 Generalize d anxiety disorder 88609259 Active 2022 Not Available [facility] 4 07:37:05 Dyspnea on exertion 21194518 Active 2023 Manuela Alvarez MD [address], [place], [address] , [facility] 4 14:16:25 Mild chronic obstructiv e pulmonary disease 286490880 Active 2023 Manuela Alvarez MD [address], [place], [address] , [facility] 4 14:17:52 Low back pain 753335965 Active 2023 Jarret rodriguez MD [address], [address], [place], [address] , [facility] 4 16:38:06 Coronary arterioscl erosis 46150785 Active 2023 Jarret rodriguez MD [address], [address], [place], [address] , [facility] 4 16:38:06 Pain in right hip joint [id number] 02 Active 2023 Jarret rodriguez MD [address], [address], [place], [address] , [facility] 4 16:38:06 Leukocytos is [id number] Active 2023 Jarret rodriguez MD [address], [address], [place], [address] , [facility] 4 16:38:06 Pain of bilateral knee joints [id number] 04 Active 2023 Jarret rodriguez MD [address], [place], [address] , [facility] 4 16:38:06 Hyperglyce bro 03011304 Active 2023 Jarret rodriguez MD [address], [place], [address] , [facility] 4 16:38:06 Hypoprotei nemia 3803828 Active 2023 Jarret rodriguez MD [address], [place], [address] , [facility] 4 16:38:06 Chronic obstructiv e pulmonary disease 65152992 Active 2023 Jarret rodriguez MD [address], [place], [address] , [facility] 4 16:38:07 Weakness present 341921421 Active 2023 Jarret rodriguez MD [address], [place], [address] , [facility] 4 17:28:48 Bilateral hip joint pain [id number] 9100 Active 2023 D[employer]IN [employer] 11:33:12 Notes:Medical History: Anxie ty/Depression Rhinitis to multiple environmental allergens with postnasal drip Eosinophils 110/uL IgE 44 IU/mL Hypogammaglobulinemia (total, IgG1) AAT PiMM 173 mg% (+) Quantiferon TB Gold Mild COPD Hypertension Hyperlipidemia Prediabetes with neuropathy CAD s/p FL EF 45% Elevated BNP SAMUEL Diverticulosis/Diverticulitis CKD Vit D deficiency Hip osteopenia Lumbar sppondylosis Left patellar enthesopathy Procedure History: Right CTS release surgery 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 Procedures Surgical History Date Name Laterality Status Provider Name and Address Organization Details Recorded Time 04/24/20 24 Medicare Wellness CPT Code, Initial completed Jimmy Yoo LPN [employer] 04/23/2024 15:59:19 04/10/20 23 Transitional_Ca re_Management completed Jarret Byrd MD [address], [address], [facility] 04/10/2023 18:02:14 06/30/20 20 Most Recent Bone Density completed Not Available [facility] 01/03/2023 05:12:30 12/19/19 07 Date of Last Colonoscopy completed Not Available [facility] 01/03/2023 05:12:30 Cardiac Stent Placement completed Not Available [facility] 01/03/2023 05:12:32 open heart surgery completed Not Available [facility] 01/03/2023 05:12:32 Pacemaker completed DIANA Bynum [email or web address] 08/30/2023 16:08:09 Imaging Results Imaging Date Name Status LastModified by Organization Details LastModified Time 12/25/2023 XR, lumbar spine completed [address] [place], [address], 05/19/2024 18:06:39 12/25/2023 XR, cervical spine, 4 or 5 view completed [address] [place], [address], 05/19/2024 18:06:52 12/25/2023 XR, shoulder completed [email or web address] [place], [address], 05/19/2024 18:07:07 12/25/2023 XR, shoulder completed [email or web address] [place], [address], 05/19/2024 18:07:25 12/25/2023 XR, thoracic spine completed [email or web address] [place], [address], 05/19/2024 18:07:37 01/31/2024 complete PFT w/ post bronchodilator spirometry* completed [facility] ([facility]) [address] [place], [address], 02/04/2024 18:25:05 05/21/2024 XR, hip + pelvis, bilateral, 3 or 4 view completed [email or web address] (Imaging) [address] [place], [address], 05/22/2024 10:27:21 05/21/2024 XR, lumbar spine completed [email or web address] [facility] (Imaging) [address] [place], [address], 05/22/2024 10:27:22 05/21/2024 imaging/diagnostic result active [facility] [address] [place], [address], 05/21/2024 17:01:40 05/21/2024 XR, knee, 3 view completed [email or web address] [facility] (Imaging) [address] [place], [address], 05/22/2024 10:27:22 05/21/2024 XR, lumbosacral spine completed [email or web address] [place], [address], 05/22/2024 10:27:23 05/21/2024 imaging/diagnostic result active [facility] [address], [place], [address], 05/21/2024 17:08:20 11/22/2024 imaging/diagnostic result active [facility] [address] [place], [address], 11/23/2024 09:02:55 01/23/2025 imaging/diagnostic result active [facility] [address] [facility] [address], [place], [address], 01/23/2025 13:49:25 Procedure Notes None recorded. Medical Equipment None Reported. Allergies Allergen ID Allergen Name Allergen Category Reaction Reaction Severity Criticality Documentation Date Start Date Code Code System Note Provider Name and Address Organization Details Recorded Time 9666 Tylenol medicatio n nausea vomiting Not available Not available Not available 01/03/202364420 3 RxNorm Not Available [facility] 3 05:23:33 9667 Non-stero idal anti-infl ammatory agent (product) medicatio n nausea vomiting Not available Not available Not available 01/03/2023 78689 005 SNOMED Not Available [facility] 3 05:23:33 9668 Motrin medicatio n nausea vomiting Not available Not available Not available 01/03/202312888 8 RxNorm Not Available [facility] 3 05:23:33 9669 Easprin medicatio n nausea vomiting Not available Not available Not available 01/03/202369835 4 RxNorm Not Available [facility] 3 05:23:33 9670 Aleve medicatio n nausea vomiting Not available Not available Not available 01/03/2023 22356 1 RxNorm Not Available [facility] 3 05:23:33 Medications Name Sig Start Date Stop Date Status Note LastModified by Organization Details LastModified Time Singulair 10 mg tablet Take 1 tablet every day by oral route. 04/21 completed Not Available Not Available Not Available methocarb juliet 500 mg tablet TAKE 1 TABLET BY MOUTH EVERY 8 TO 12 HOURS 11/24 completed Not Available Not Available Not Available venlafaxi ne ER 37.5 mg capsule,e xtended release 24 hr Take 1 capsule every day by oral route. 05/10 completed Not Available Not Available Not Available prednison e 10 mg tablet 12/14 completed Not Available Not Available Not Available gabapenti n 600 mg tablet TAKE 1/2 TABLET BY MOUTH EVERY 8 TO 12 HOURS NEEDED 07/13 completed Not Available Not Available Not Available doxycycli ne hyclate 100 mg capsule 08/30 completed Not Available Not Available Not Available ipratropi um 0.5 mg-albute rol 3 mg (2.5 mg base)/3 mL nebulizat ion soln USE 1 VIAL IN NEBULIZE R TWICE DAILY - As Needed 01/02 completed Not Available Not Available Not Available albuterol sulfate 2.5 mg/3 mL (0.083 %) solution for nebulizat ion USE 1 ML VIA NEBULIZE R TWICE DAILY NEEDED 01/02 completed Not Available Not Available Not Available amiodaron e 200 mg tablet 10/09 completed Not Available Not Available Not Available cephalexi n 250 mg capsule TAKE 1 CAPSULE BY MOUTH THREE TIMES DAILY 08/30 completed Not Available Not Available Not Available hydrocodo ne 5 mg-acetam inophen 325 mg tablet active Not Available Not Available Not Available bacitraci n 500 unit/gram eye ointment active Not Available Not Available Not Available Lasix 40 mg tablet Take 1 tablet every day by oral route. 08/30 completed Started per 04/05/23 [facility] discharg e summary Not Available Not Available Not Available ondansetr on HCl 4 mg tablet 04/21 completed Not Available Not Available Not Available bupivacai ne HCl 0.5 % (5 mg/mL) injection solution Take 20 mg by injectio n route. 07/13 completed Not Available Not Available Not Available Zithromax Z-Dewayne 250 mg tablet TAKE 2 TABLETS (500 MG) BY ORAL ROUTE ONCE DAILY FOR 1 DAY THEN 1 TABLET (250 MG) BY ORAL ROUTE ONCE DAILY FOR 4 DAYS 04/21 completed Not Available Not Available Not Available diphenoxy late-atro pine 2.5 mg-0.025 mg tablet active Not Available Not Available No t Available meclizine 12.5 mg tablet Take 1 tablet twice a day by oral route as needed for 30 days. 08/12 completed Not Available Not Available Not Available Zyrtec 10 mg tablet Take 1 tablet every day by oral route. 11/04 completed OTC Not Available Not Available Not Available metronida zole 500 mg tablet Take 1 tablet every 8 hours by oral route. 04/21 completed Not Available Not Available Not Available amlodipin e 5 mg tablet TAKE 1 TABLET BY MOUTH EVERY DAY 04/06 completed Stopped per 04/05/23 [facility] discharg e summary Not Available Not Available Not Available ciproflox acin 500 mg tablet Take 1 tablet every 12 hours by oral route. 04/21 completed Not Available Not Available Not Available sulfameth oxazole 800 mg-trimet hoprim 160 mg tablet Take 1 tablet every 12 hours by oral route for 7 days. 04/21 completed Not Available Not Available Not Available hydrocodo ne 10 mg-acetam inophen 325 mg tablet TAKE 1 TABLET BY MOUTH TWICE DAILY NEEDED 04/10 completed Not Available Not Available Not Available tramadol 50 mg tablet 04/21 completed Not Available Not Available Not Available pantopraz ole 20 mg tablet,de layed release Take 1 tablet every day by oral route as needed for 90 days. 07/26 completed Not Available Not Available Not Available prednison e 10 mg tablets in a dose pack Take 1 tab by mouth, 3 times a day for 3 daysTake 1 tab by mouth 2 times a day for 2 daysTake 1 tab by mouth once a day for 1 day 12/14 completed Not Available Not Available Not Available oxycodone -acetamin ophen 5 mg-325 mg tablet 02/07 completed Not Available Not Available Not Available alprazola m 0.5 mg tablet TAKE 1 TABLET BY MOUTH TWICE DAILY NEEDED, TAKE SPARINGL Y!No alcohol, driving or with sedating medicati ons!Noti fy if any change in mood or behavior active Not Available Not Available No t Available hydromorp roby 2 mg tablet active Not Available Not Available Not Available alprazola m 0.25 mg tablet TAKE 1 TABLET BY MOUTH TWICE DAILY NEEDED 11/07 completed Not Available Not Available Not Available amitripty line 25 mg tablet TAKE ONE TABLET DAILY AT BEDTIME active Not Available Not Available No t Available oxycodone -acetamin ophen 10 mg-325 mg tablet TAKE 1 TABLET BY MOUTH THREE TIMES DAILY NEEDED - M54.17 RADICULO SARAH, LUMBAR REGION active Not Available Not Available No t Available dicyclomi ne 20 mg tablet Take 1 tablet 4 times a day by oral route as needed for 30 days. active Not Available Not Available No t Available OneTouch Ultra Test strips USE 1 STRIP TWICE DAILY BEFORE MEALS 11/07 completed Not Available Not Available Not Available Kenalog 10 mg/mL suspensio n for injection In office injectio n administ ered by the provider 12/14 completed [facility]: [phone]- Not Available Not Available Not Available meclizine 25 mg tablet Take 1 tablet 3 times a day by oral route as needed. 10/09 completed Not Available Not Available Not Available hydrocodo ne 7.5 mg-acetam inophen 325 mg tablet TAKE 1 TABLET FOUR TIMES A DAY NEEDED 08/25 completed Not Available Not Available Not Available erythromy glenroy 5 mg/gram (0.5 %) eye ointment APPLY 1 A THIN LAYER INTO RIGHT EYE THREE TIMES A DAY active Not Available Not Available No t Available ranitidin e 150 mg tablet Take 1 tablet twice a day by oral route. active Not Available Not Available No t Available losartan 25 mg tablet TAKE 1 TABLET BY MOUTH EVERY DAY active Not Available Not Available No t Available gabapenti n 300 mg capsule TAKE 1 CAPSULE BY MOUTH EVERY 8 TO 12 HOURS 07/14 completed Not Available Not Available Not Available omeprazol e 20 mg capsule,d elayed release Take 1 capsule every day by oral route. 08/12 completed Not Available Not Available Not Available benazepri l 20 mg tablet TAKE 1 TABLET BY MOUTH DAILY 12/14 completed On losartan given by Dr Claus COREAS Not Available Not Available Not Available furosemid e 20 mg tablet TAKE 1 TABLET BY MOUTH DAILY active Not Available Not Available No t Available gabapenti n 100 mg capsule TAKE 1 CAPSULE BY MOUTH TWICE A DAY active Not Available Not Available No t Available ergocalci ferol (vitamin D2) 1,250 mcg (50,000 unit) capsule TAKE 1 CAPSULE BY MOUTH 1 TIME A WEEK 08/30 completed Not Available Not Available Not Available oxycodone -acetamin ophen 7.5 mg-325 mg tablet TAKE 1 TABLET EVERY 6 HOURS NEEDED 10/16 completed Not Available Not Available Not Available methylpre dnisolone 4 mg tablets in a dose pack 05/16 completed Not Available Not Available Not Available celecoxib 100 mg capsule TAKE 1 CAPSULE BY MOUTH TWICE DAILY 04/06 completed Stopped per 04/05/23 [facility] discharg e summary Not Available Not Available Not Available benazepri l 10 mg tablet TAKE ONE TABLET DAILY 07/10 completed Not Available Not Available Not Available sertralin e 20 mg/mL oral concentra te TAKE 2.5 ML BY MOUTH EVERY DAY 01/02 completed Not Available Not Available Not Available ondansetr on 4 mg disintegr ating tablet 04/21 completed Not Available Not Available Not Available losartan 100 mg tablet TAKE 1 TABLET BY MOUTH EVERY DAY 04/06 completed Dose changed per 04/05/23 [facility] discharg e summary Not Available Not Available Not Available fluticaso ne propionat e 50 mcg/actua tion nasal spray,aye pension Inhale 2 sprays every day by intranas al route. 05/10 completed Not Available Not Available Not Available dicyclomi ne 10 mg capsule active Not Available Not Available Not Available calcitrio l 0.25 mcg capsule TAKE 1 CAPSULE BY MOUTH EVERY DAY 01/02 completed Not Available Not Available Not Available escitalop jordan 10 mg tablet 08/13 completed Not Available Not Available Not Available escitalop jordan 5 mg tablet TAKE 1 TABLET BY MOUTH DAILY 11/24 completed Not Available Not Available Not Available nitrofura ntoin monohydra te/macroc rystals 100 mg capsule active Not Available Not Available Not Available duloxetin e 20 mg capsule,d elayed release Take 1 capsule every day by oral route for 30 days. 11/20 completed Not Available Not Available Not Available omeprazol e 1 TAB Daily as needed 11/04 completed OTC Not Available Not Available Not Available Vitamin D 1 tablet daily 12/24 completed Not Available Not Available Not Available lidocaine (PF) 10 mg/mL (1 %) injection solution In office injectio n administ ered by the provider 07/14 completed [facility]: [id number] 6-17 Not Available Not Available Not Available fenofibra te nanocryst allized 48 mg tablet Take 1 tablet every day by oral route. 10/16 completed Not Available Not Available Not Available oxycodone 10 mg tablet active Not Available Not Available Not Available diclofena c 1 % topical gel APPLY TOPICALL Y TO THE AFFECTED AREA FOUR TIMES DAILY NEEDED 11/07 completed Not Available Not Available Not Available ropivacai ne (PF) 5 mg/mL (0.5 %) injection solution Take 40 mg by injectio n route. 12/14 completed Not Available Not Available Not Available Fluzone High-Dose 1010-4822 (PF) 180 mcg/0.5 mL intramusc ular syringe active Not Available Not Available Not Available Fluzone High-Dose (PF) 180 mcg/0.5 mL intramusc ular syringe active Not Available Not Available Not Available albuterol sulfate 90 mcg/actua tion breath activated powder inhaler Inhale 1 puff every 4 hours by inhalati on route as needed. 2023 active Not Available Not Available Not Avai lable Fluzone High-Dose (PF) 180 mcg/0.5 mL intramusc ular syringe active Not Available Not Available Not Available naloxone 4 mg/actuat ion nasal spray CALL 911. SPR CONTENTS OF ONE SPRAYER (0.1ML) INTO ONE NOSTRIL. REPEAT IN 2-3 MIN IF SYMPTOMS OF OPIOID EMERGENC Y PERSIST, ALTERNAT E NOSTRILS 06/17 completed Not Available Not Available Not Available Fluzone High-Dose 5971-1671 (PF) 180 mcg/0.5 mL intramusc ular syringe 10/09 completed Not Available Not Available Not Available Fluzone High-Dose (PF) 180 mcg/0.5 mL intramusc ular syringe IMMUNIZA TION 08/12 completed Not Available Not Available Not Available OneTouch Ultra2 Meter USE DIRECTED 11/07 completed Not Available Not Available Not Available OneTouch Delica Plus Lancet 30 gauge USE DIRECTED 11/07 completed Not Available Not Available Not Available Fluzone High-Dose (PF) 180 mcg/0.5 mL intramusc ular syringe IMMUN 10/16 completed Not Available Not Available Not Available Fluzone High-Dose Quad 2020-21 (PF) 240 mcg/0.7 mL IM syringe PHARMACY ADMINIST COBY 03/15 completed Not Available Not Available Not Available Vitals Date Recorded Body height Body mass index (BMI) Body weight Heart rate Provider Name and Address Organization Details Last Updated DateTime 01/02/2024 152.4 cm 22.1 kg/m2 66974.37 g 65 /min Doris Oneal MA [facility] 01/02/2024 10:11:33 Date Recorded Body temperature Oxygen saturation Oxygen saturation in Arterial blood by Pulse oximetry Heart rate Respiratory rate Systolic blood pressure Diastolic blood pressure Provider Name and Address Organization Details Last Updated DateTime 4 97.2 [degF] 97 % 97 % 65 /min 15 /min 100 mm[Hg] 60 mm[Hg] Manuela Alvarez MD [address], [place], [address] , [employer] 4 10:52:34 Date Recorded Body height Body temperature Heart rate Provider Name and Address Organization Details Last Updated DateTime 02/04/2024 152.4 cm 97.6 [degF] 71 /min Doris Oneal MA [facility] 02/04/2024 14:20:44 Date Recorded Oxygen saturation Oxygen saturation in Arterial blood by Pulse oximetry Body mass index (BMI) Body weight Heart rate Respiratory rate Systolic blood pressure Diastolic blood pressure Provider Name and Address Organization Details Last Updated DateTime 4 98 % 98 % 20.3 kg/m2 43582.6 1 g 71 /min 14 /min 112 mm[Hg] 60 mm[Hg] Manuela Alvarez MD [address], [place], [address] , [facility] 15:17:23 Date Recorded Body height Body temperature Heart rate Systolic blood pressure Diastolic blood pressure Provider Name and Address Organization Details Last Updated DateTime 04/24/2024 152.4 cm 97.7 [degF] 72 /min 128 mm[Hg] 60 mm[Hg] DIANA Bynum [employer] [facility] [employer] 16:46:30 Date Recorded Pain severity - 0-10 verbal numeric rating [Score] - Reported Provider Name and Address Organization Details Last Updated DateTime 04/24/2024 8 Jimmy Yoo LPN [facility] I [facility] 04/24/2024 17:25:39 Date Recorded Body height Body mass index (BMI) Body weight Provider Name and Address Organization Details Last Updated DateTime 06/18/2024 160.02 cm 19 kg/m2 03588.38 g Elba VirkDUSTIN hernandez [facility] [employer] [facility] 06/18/2024 11:26:44 Date Recorded Body height Body mass index (BMI) Body weight Body temperature Heart rate Systolic blood pressure Diastolic blood pressure Provider Name and Address Organization Details Last Updated DateTime 160.02 cm 18.4 kg/m2 76874.6 1 g 97.5 [degF] 72 /min 116 mm[Hg] 72 mm[Hg] Mamta Vang [facility] [employer] [facility] 16:46:36 Social History Question Answer Notes LastModified by Organization Details LastModified Time Tobacco Smoking Status Former Smoker Not Available [facility] 01/03/2023 05:12:20 Do You Have An Advance Directive? Yes Patient To Bring Copy For Chart. [id number] Information not available 01/03/2023 What Is Your Level Of Alcohol Consumption? None MIGRATION.0301 [id number] Information not available 01/03/2023 Do You Wear A Helmet When Biking? No Does Not Bike [email or web address] Information not available 04/24/2024 Are You Blind Or Do You Have Difficulty Seeing? No MIGRATION.0301 [id number] Information not available 01/03/2023 What Is Your Level Of Caffeine Consumption? Occasional [email or web address].0301 [id number] Information not available 01/03/2023 How Much Tobacco Do You Chew? None MIGRATION.0301 [id number] Information not available 01/03/2023 In The 14 Days Before Symptom Onset, Have You Had Close Contact With A Laboratory-confi rmed COVID-19 While That Case Was Ill? No MIGRATION.0301 [id number] Information not available 01/03/2023 In The 14 Days Before Symptom Onset, Have You Had Close Contact With A Person Who Is Under Investigation For COVID-19 While That Person Was Ill? No MIGRATION.0301 [id number] Information not available 01/03/2023 Are You Currently Employed? No Information not available 04/24/2024 Are You Deaf Or Do You Have Serious Difficulty Hearing? No MIGRATION.0301 [id number] Information not available 01/03/2023 What Type Of Diet Are You Following? REGULAR MIGRATION.0301 [id number] Information not available 01/03/2023 Which Illicit Or Recreational Drugs Have You Used? None MIGRATION.030 [id number] Information not available 01/03/2023 Do You Or Have You Ever Used E-cigarettes Or Vape? Never Used Electronic Cigarettes MIGRATION.030 [id number] Information not available 01/03/2023 What Is The Highest Grade Or Level Of School You Have Completed Or The Highest Degree You Have Received? [id number] MIGRATION.030 [id number] Information not available 01/03/2023 Do You Have An Electrostatic Air Filter? No Information not available 01/02/2024 What Is Your Occupation? Retired MIGRATION.030 [id number] Information not available 01/03/2023 How Many Days Of Moderate To Strenuous Exercise, Like A Brisk Walk, Did You Do In The Last 7 Days? 0 [email or web address] Information not available 04/24/2024 Have There Been Any Changes To Your Family Or Social Situation? No MIGRATION.0301 [id number] Information not available 01/03/2023 What Is The Fluoride Status Of Your Home? Unknown MIGRATION.030 [id number] Information not available 01/03/2023 When Did You Quit Smoking? 15+yearssincelastc igarette MIGRATION.030 701113 Information not available 01/03/2023 Are There Any Guns Present In Your Home? No MIGRATION.0301 [id number] Information not available 01/03/2023 Do You Have A Humidifier? No Information not available 01/02/2024 Do You Use Insect Repellent Routinely? No MIGRATION.0301 [id number] Information not available 01/03/2023 Where Do You Live? SingleLevelHouse MIGRATION.0301 [id number] Information not available 01/03/2023 Presence Of Domestic Violence No [email or web address] Information not available 04/24/2024 Guns Present In The Home? No Information not available 04/24/2024 Are You Able To Care For Yourself? Yes [email or web address] Information not available 04/24/2024 Are You Blind Or Do Yo Have Difficulty Seeing? No Information not available 04/24/2024 Are You Deaf Or Do You Have Serious Difficulty Hearing? No [email or web address] Information not available 04/24/2024 General Stress Level? Low Information not available 04/24/2024 Live Alone Of With Others? Alone [email or web address] Information not available 04/24/2024 Do You Have A Medical Power Of Transformation Consultant? Yes MIGRATION.0301 [id number] Information not available 01/03/2023 Do You Have Moisture Problems In Your Home? No Information not available 01/02/2024 What Was The Date Of Your Most Recent Tobacco Screening? 08/28/2024 [email or web address] Information not available 08/28/2024 Do You Have Any Pets? Yes Cat [email or web address] Information not available 04/24/2024 What Is Your Relationship Status? MIGRATION.0301 [id number] Information not available 01/03/2023 Do You Use Your Seat Belt Or Car Seat Routinely? Yes MIGRATION.0301 [id number] Information not available 01/03/2023 Do You Have Smoke And Carbon Monoxide Detectors In Your Home? Yes MIGRATION.0301 [id number] Information not available 01/03/2023 At What Age Did You Start Smoking Tobacco? 15 MIGRATION.0301 [id number] Information not available 01/03/2023 Are You Passively Exposed To Smoke? No MIGRATION.0301 [id number] Information not available 01/03/2023 Do You Or Have You Ever Used Smokeless Tobacco? Never Used Smokeless Tobacco MIGRATION.0301 [id number] Information not available 01/03/2023 Are There Any Smokers In Your House? No MIGRATION.0301 [id number] Information not available 01/03/2023 What Types Of Sporting Activities Do You Participate In? None [email or web address] Information not available 04/24/2024 Do You Feel Stressed (tense, Restless, Nervous, Or Anxious, Or Unable To Sleep At Night)? [id number] MIGRATION.0301 [id number] Information not available 01/03/2023 Do You Use Any Illicit Or Recreational Drugs? No MIGRATION.0301 [id number] Information not available 01/03/2023 Do You Use Sunscreen Routinely? No MIGRATION.0301 [id number] Information not available 01/03/2023 Has Tobacco Cessation Counseling Been Provided? No MIGRATION.0301 [id number] Information not available 01/03/2023 How Many Years Have You Smoked Tobacco? 46 MIGRATION.0301 [id number] Information not available 01/03/2023 Have You Recently Traveled Abroad? No MIGRATION.0301 [id number] Information not available 01/03/2023 Do You Have Any Dietary Restrictions? No MIGRATION.0301 275820 Information not available 01/03/2023 Do You Or Have You Ever Used Any Other Forms Of Tobacco Or Nicotine? No MIGRATION.0301 [id number] Information not available 01/03/2023 Sex: Female Functional Status Question Answer Note LastModified by Organizat ion Details LastModified Time Do you have difficulty walking or climbing stairs? Yes Patient ambulates with walker. MIGRATION.44433 [id number] Information not available 01/03/2023 Do you have transportation difficulties? No MIGRATION.77879 [id number] Information not available 01/03/2023 Are you able to walk? YESASSIST uses walker/wheel chair MIGRATION.53890 [id number] Information not available 01/03/2023 Do you have difficulty doing errands alone? No MIGRATION.08146 71531 Information not available 01/03/2023 Are you able to care for yourself? Yes Son helps often. MIGRATION.21158 [id number] Information not available 01/03/2023 Do you have difficulty dressing or bathing? No MIGRATION.89167 95517 Information not available 01/03/2023 What is your exercise level? None [email or web address] Information not available 04/24/2024 Mental Status Question Answer Note LastModified by Organizat ion Details LastModified Time Do you have difficulty concentrating, remembering or making decisions? No [id number] Information not available 01/03/2023 Family History Relationship Description Onset Age of this Age Resolved Age Notes LastModified by Organization Details LastModified Time Father Cerebrovascu lar accident [id number] Not available 01/03/2023 05:12:38 Father Hypertensive disorder [id number] Not available 01/03/2023 05:12:38 Son Heart disease [email or web address] Not available 2023 10:47:31 Father Myocardial infarction [email or web address] Not available 01/02 10:49:22 Father Heart disease [email or web address] Not available 2023 11:30:13 Father Family history of stroke [email or web address] Not available 2023 11:30:29 Notes:cancer-mother Medical History Condition Response BLINDNESS N NERVE DISEASE Y RHEUMATIC FEVER N BLADDER PROBLEMS N KIDNEY STONES N MRSA N OTHER # 1 N POLIO N LUNG DISEASE/DISORDER N HISTORY OF DRUG ABUSE N RADIATION / CHEMOTHERAPY N COPD N Other # 2 N BLOOD DISEASES N EAR OR HEARING PROBLEMS N MUMPS N SHINGLES N BOWEL PROBLEMS N DEPRESSION (INCLUDING POST ) Y STROKE/TIA Y ULCERS N BENIGN PROSTATIC HYPERPLASIA N MEASLES N HYPOTENSION N MYOCARDIAL INFARCTION N OBESITY N GERD/NAUSEA Y ANEURYSM N URINARY/BLADDER/KIDNEY PROBLEMS Y CORONARY ARTERY DISEASE (CAD) Y ADDICTION CONCERNS N ENDOMETRIOSIS N Impotence N USE OF BLOOD THINNERS N SKIN PROBLEMS N GASTROINTESTINAL DISORDER Y PERIPHERAL VASCULAR DISEASE N MUSCLE,JOINT OR BONE PROBLEMS Y GASTROINTESTINAL BLEEDING N BLOOD CLOTS N ASTHMA N CATARACTS N ERECTILE DYSFUNCTION N VARICOSITIES N GI PROBLEMS N Low Testosterone N INFERTILITY N AIDS/HIV N CHEMOTHERAPY / RADIATION N LIVER DISEASE N MALE HYPOGONADISM N HYPERTENSION Y Deficiency Y TOURETTE'S N ANXIETY DISORDER Y BLOOD TRANSFUSION N ANEMIA/BLOOD DISORDER N CHRONIC EAR INFECTIONS N BRONCHITIS N TUBERCULOSIS N GLAUCOMA N FOOT PROBLEM N DIVERTICULITIS N CHICKENPOX N SLEEP APNEA N INFECTIOUS DISEASE N HEART ARRHYTHMIA N PROSTATE N INSOMNIA N HIGH CHOLESTEROL / HYPERLIPIDEMIA Y HYPERTHYROIDISM N EYE PROBLEMS N EDEMA N CHRONIC PAIN SYNDROME Y HYPOTHYROIDISM N CAROTID BLOCKAGE N CONSTIPATION N BACK / NECK PROBLEMS Y ATHEROSCLEROSIS N BREAST PROBLEMS N DIALYSIS N ECZEMA N OSTEOPOROSIS Y ARTHRITIS Y APPENDICITIS N DIABETES, TYPE N BAD TEETH N ENT N HEARTBURN / REFLUX N AUTISM SPECTRUM DISORDER (ASD) N HEPATITIS / LIVER DISEASE N GOUT N SLEEP DISORDER N ALZHEIMER'S DISEASE N Brain Problems N HERPES N DEMENTIA N HEADACHES/MIGRAINES N SEIZURES/EPILEPSY N VASCULAR DISEASE N PACEMAKER Y Blood Disorder Y DIZZINESS N HEART DISEASE/HEART PROBLEMS N KIDNEY DISEASE Y MULTIPLE SCLEROSIS N CARDIAC ARRHYTHMIA N CANCER: SPECIFY N ATRIAL FIBRILLATION N Gall Stones N PULMONARY EMBOLISM N AUTOIMMUNE DISEASE N Gynecological History Statement/Question Response Date of Last Pap Date of Last Mammogram 07/30/2015 Date of Last Colonoscopy 12/19/2006 Most Recent Bone Density 06/30/2020 Obstetrics History GPAL:G 0 P 0 0 0 0 Immunizations Vaccine Type Date Status Note Provider Nam e and Address Organization Details Recorded Time Influenza, high-dose, trivalent, PF 1 completed Not Available [facility] 12/13/2023 07:37:06 SARS-COV-2 (COVID-19) vaccine, UNSPECIFIED 1 completed Not Available [facility] 12/13/2023 07:37:06 Influenza, high-dose, trivalent, PF 9 completed Not Available [facility] 12/13/2023 07:37:06 Influenza, high-dose, trivalent, PF 5 completed Not Available [facility] 12/13/2023 07:37:06 influenza, unspecified formulation 8 completed Not Available [facility] 12/13/2023 07:37:06 influenza, unspecified formulation 7 completed Not Available [facility] 12/13/2023 07:37:06 Influenza, split virus, quadrivalent, preservative 6 completed Not Available [facility] 12/13/2023 07:37:06 Influenza, high-dose, quadrivalent, PF 3 completed Jarret Byrd MD [address], [facility] [address], [place], [address], [employer] 08/30/2023 16:30:27 Influenza, high-dose, trivalent, PF 4 completed Jarret Byrd MD [address], [facility] [address], [place], [address], [employer] 08/29/2024 21:20:57 Past Encounters Encounter ID Performer Location Encounter Start Date Encounter Closed Date Diagnosis/Indication Diagnosis SNOMED-CT Code Diagnosis ICD10 Code Diagnosis Note [id number] [facility] [address] , [address] [place] [address] 03/15/2021 00:00:00 03/21/2021 14:50:22 [id number] [facility] Bruner [address] [place] [address] 04/18/2021 00:00:00 04/18/2021 11:37:17 [id number] [facility] [address] [facility] [address] [place] [address] 07/14/2021 00:00:00 08/04/2021 11:25:39 [id number] [facility] [address] [place], [place] [address] [address] [address] 11/24/2021 00:00:00 11/24/2021 15:50:43 [id number] [facility] [place] [address] [place] [address] 01/11/2022 00:00:00 01/11/2022 17:20:45 [id number] [facility] [address] [place], [place] [address] [address] [address] 03/09/2022 00:00:00 03/09/2022 11:54:13 [id number] [facility] [address] [place], [place] [address] [address] [address] 07/13/2022 00:00:00 07/13/2022 15:42:49 [id number] [facility] [place] [address] [place] [address] 08/01/2022 00:00:00 08/01/2022 15:54:54 [id number] [facility] [place] [address] [place] [address] 10/31/2022 00:00:00 11/14/2022 14:45:00 [id number] [facility] [address] [place], [place] [address]., [address] [address] 12/14/2022 00:00:00 12/14/2022 12:17:58 [id number] Jarret rodriguez MD [facility] [address] [place], [place] [address]., [address] [address] 04/10/2023 17:17:30 04/10/2023 18:32:29 Transition of care [id number] 105 Z75.8 Transition Care Management Questionna ireDate of Discharge 04/05/23Admi ssion Date: 04/02/23Dat e of Contact: 1st attempt: 04/06/23Reas on for Admission: Judith catherine [facility] es): Heart failure, anxiety, leukocytos is, d-dimer above rangeDiagn ostic Test(s) Performed: CT (CTA), cardiovasc ular testing (lab work, chest xray, echo)Did your hospital physician prescribe any new medicines upon discharge? yes: Lasix 40mg, Cozaar 25mgDid you pick pulling machine tender your prescripti on(s) and begin taking them as the doctor prescribed ? yesDo you have any questions about your new medication s? noDid the hospital set up a follow up appointmen t with your PCP? no (Called patient and scheduled appointmen t for 04/10/23)Did the hospital set up an appointmen t up with any specialist s? no (Patient also needs to follow-up with Dr. Lew.)D id the hospital set up Home Health Care or Outpatient therapy? noDid the hospital set you up with any equipment before discharge? noDo you have all the equipment you need to perform daily living activities ? yesPerform ed by: (include credential s) Lor Hilton RN Screening - NAD [id number] 3 Z13.9 C-scope: She has declined this and understand s the risks for CRC 07/14/2021 Mammogram: Does not want to do this also. PAP: Declines this alsoNo complaints for any of the above 07/14/2021 Understand s the risks for not doing these health maintenanc e UTD on the flu shot.decli herb the shingles vaccine,pn eumonia and tdap.UTD on COVID 19 vaccine DEXA: 04/12/17: Osteopenia , can do calcium and vit D ordered againDEXA: 06/30/2020 : NormalDEXA : 01/17/2023 : Osteopenia , do ca and vit d RTC in 4 monthsDo labsER if any symptoms worsen,she and Perry verbalized her understand ing of the above Low back pain [id number] M54.[address] Vallejo On hydrocodon Nirmala oxycodoneO n gabapentin 100mg bidOn celebrexOn naloxone Essential hypertension 92996663 I10 On amlodipine 5mg dailyOn benazepril 20mg daily, given by Dr Vela advised her to stop this as now on losartanOn losartan 25mg daily, given by Dr Wakefield IJ, decreased by hospitalis t at [facility] 04/05/2023 Does wellGet labs Coronary arteriosclerosis 11203976 I25.10 S/P CABG in 2008Seen by Dr. Lew, 06/26/17 and is to now get a DC pacemaker, now at the 07/23/17S/ p PM and Dr Lew on 11/13/17 and f/u in 6 months OV 11/18/2020 :[facility] Dr Lew 11/25/2019 , next apt in one year, get another apt OV 03/15/2021 :She has not kept her apt with Dr Albarado a referral again OV 07/14/2021 :[facility] Dr Lew 03/28/2201 , she instead is seeing Dr Wakefield on 08/23/2021 with Petr d on lexapro by Dr Lew, but does not want to take this OV 11/24/2021 :Keep apt with cardiology OV 03/09/2022 :Needs to see Dr Lew [facility] OV 07/13/2022 :[facility] Dr Lew 04/04/2022 , f/u in 6 months OV 12/14/2022 :[facility] Dr Lew 09/05/2022 , f/u in 6 months OV 04/10/2023 :Admitted and d/c from [facility] 04/02 to 04/05/2023 for SOB, CHF with decreased EF, treated with diuresis, needs to see cardiology , plan was to get L/R HC and JOSIE, also now on losartan Hyperlipidemia 80114384 E78.5 Not on any medsGet labs Terminal e sophageal web 44122998 K22.2 OV 03/09/2022 :Was told to get EGD, but she does not want this at this timeNow c/o dysphagia needs to get EGD, will refer to Dr Srivastava Pain of bi lateral knee joints [id number] 26886 M25.[address] Fuentes for this Pain in ri ght hip joint 2354403549 27998 M25.551 OV 11/18/2020 :S/p fall and R hip painSeen by Bao VAUGHN for ortho on 11/04/2021 , and given a shot in the hipGet another referral to Dr Boyer's PA Bao Faustin as she would like to get a shot also in the L hipExplain ed to her the concern for poly pharmacy especially regarding the opiates and benzodiaze pines, she states that she will be very careful regarding these medication s OV 03/15/2021 :Seen by Bao VAUGHN for Dr Moran/p injection given 11/30/2020 in L SIJReferre d to pain management now sees Dr Whatley he is micheal smith getting on medical marijuana OV 07/14/2021 :On opiatesHas seen Bao Faustin OV 11/24/2021 :Get another apt with ortho OV 03/09/2022 :Bao Faustin 01/11/2022 , f/u in 6 weeks OV 07/13/2022 :Can see Bao VAUGHN OV 12/14/2022 :Dr Boyer 10/31/2022 for LBP, tendinitis of L RC, Pain in SIJ, 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 , s/p kenalog injection OV 04/10/2023 :Does not want to see Dr Boyer at this time Leukocytosis 789978262 D 72.829 Get labsCBC WNL 03/06/2022 Chronic ki dney disease 248564380 N18.9 On calcitriol On vit D weekly as per her historyNee ds to do labsGet an apt with Dr Han, but now sees Dr Wakefield IJ Neuropathy 262194314 G62 .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 Takes is 'as needed' Generalize d anxiety disorder [id number] F41.1 On alprazolam 0.25mg bid PRNTake NEEDED!, states that this is the only 'pill' that 'helps me' She again has been told about poly pharmacySh e again has declined any psychiatry referralNo t suicidal or homicidal, no ideation or attempts Hyperglycemia 94734413 R 73.9 Get labs Hypoproteinemia 1863110 E88.09 Do more protein in diet, but discuss this with kidney MD too [id number] Jarret rodriguez MD [facility] [address] [facility] [place] [address] 08/30/2023 15:48:28 08/30/2023 16:31:41 Screening - NAD 125319716 Z13.9 C-scope: She has declined this and understand s the risks for CRC 07/14/2021 Mammogram: Does not want to do this also. PAP: Declines this alsoNo complaints for any of the above 07/14/2021 Understand s the risks for not doing these health maintenanc e UTD on the flu shot.decli herb the shingles vaccine,pn eumonia and tdap.UTD on COVID 19 vaccineGet RSV vaccine and the new COVID 19 vaccine DEXA: 04/12/17: Osteopenia , can do calcium and vit D ordered againDEXA: 06/30/2020 : NormalDEXA : 01/17/2023 : Osteopenia , do ca and vit d RTC in 4 monthsDo labsER if any symptoms worsen,she and Perry verbalized her understand ing of the above Low back pain 452189550 M54.[address] Vallejo Not on hydrocodon Nirmala oxycodoneO n gabapentin 100mg bidOn celebrexOn naloxone Essential hypertension 52108682 I10 On amlodipine 5mg dailyOn benazepril 20mg daily, given by Dr Vela advised her to stop this as now on losartanOn losartan 25mg daily, given by Dr Wakefield IJ, decreased by hospitalis t at [facility] 04/05/2023 Does wellGet labs Coronary arteriosclerosis 69296778 I25.10 S/P CABG in [address]Seen [address] Dr[address] Lew, 06/26/17 and is to now get a DC pacemaker, now at the 07/23/17S/ p PM and Dr Lew on 11/13/17 and f/u in 6 months OV 11/18/2020 :[facility] Dr Lew 11/25/2019 , next apt in one year, get another apt OV 03/15/2021 :She has not kept her apt with Dr Albarado a referral again OV 07/14/2021 :[facility] Dr Lew 03/28/2201 , she instead is seeing Dr Wakefield on 08/23/2021 with ECHOStarte d on lexapro by Dr Lew, but does not want to take this OV 11/24/2021 :Keep apt with cardiology OV 03/09/2022 :Needs to see Dr Lew [facility] OV 07/13/2022 :[facility] Dr Lew 04/04/2022 , f/u in 6 months OV 12/14/2022 :[facility] Dr Lew 09/05/2022 , f/u in 6 months OV 04/10/2023 :Admitted and d/c from [facility] 04/02 to 04/05/2023 for SOB, CHF with decreased EF, treated with diuresis, needs to see cardiology , plan was to get L/R HC and JOSIE, also now on losartan OV 08/30/2023 :[facility] Dr Lew 07/10/2023 , next in 6 months Hyperlipidemia 48927873 E78.5 Not on any medsGet labs Terminal e sophageal web 15591251 K22.2 OV 03/09/2022 :Was told to get EGD, but she does not want this at this timeNow c/o dysphagia needs to get EGD, will refer to Dr Srivastava OV 08/30/2023 : Needs to see Dr Srivastava Pain of bi lateral knee joints [id number] 92973 M25.[address] Fuentes for this Pain in ri ght hip joint 0816153756 54932 M25.551 OV 11/18/2020 :S/p fall and R hip painSeen by Bao VAUGHN for ortho on 11/04/2021 , and given a shot in the hipGet another referral to Dr Boyer's PA Bao Faustin as she would like to get a shot also in the L hipExplain ed to her the concern for poly pharmacy especially regarding the opiates and benzodiaze pines, she states that she will be very careful regarding these medication s OV 03/15/2021 :Seen by Bao VAUGHN for Dr Moran/p injection given 11/30/2020 in L SIJReferre d to pain management now sees Dr Whatley he is micheal smith getting on medical marijuana OV 07/14/2021 :On opiatesHas seen Bao Faustin OV 11/24/2021 :Get another apt with ortho OV 03/09/2022 :Bao Faustin 01/11/2022 , f/u in 6 weeks OV 07/13/2022 :Can see Bao VAUGHN OV 12/14/2022 :Dr Boyer 10/31/2022 for LBP, tendinitis of L RC, Pain in SIJ, 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 , s/p kenalog injection OV 04/10/2023 : Does not want to see Dr Boyer at this time Leukocytosis 866926267 D 72.829 Get labsCBC WNL 03/06/2022 Chronic ki dney disease 758652460 N18.9 On calcitriol On vit D weekly as per her historyNee ds to do labsGet an apt with Dr Han, but now sees Dr Claus COREAS Neuropathy 835881951 G62 .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 Takes is 'as needed' Generalize d anxiety disorder 61231234 F41.1 On alprazolam 0.25mg bid PRN, now do 0.5mg po bid, if any more dose needs to be given she will HAVE to see psychiatry 08/30/2023 , will decrease the dose in one month againTake NEEDED!, again today 08/30/2023 states that this is the only 'pill' that 'helps me', declined any other meds such as a SSRI or SNRI She again has been told about poly pharmacySh e again has declined any psychiatry referralNo t suicidal or homicidal, no ideation or attempts Hyperglycemia 04045667 R 73.9 Get labs Hypoproteinemia 1640183 E88.09 Do more protein in diet, but discuss this with kidney MD too Administra tion of influenza vaccine 00306268 Z23 Chronic ob structive pulmonary disease 52438459 J44.9 Addendum 10/10/2023 : Noted on xrays and needs supplies, does need to see pulmonaryG et on albuterol nebulizers as per Maria [id number] Jarret rodriguez MD [facility] [address] [place] [address] 12/20/2023 15:56:54 12/20/2023 16:46:34 Screening - NAD [id number] Z13.9 C-scope: She has declined this and understand s the risks for CRC 07/14/2021 Mammogram: Does not want to do this also. PAP: Declines this alsoNo complaints for any of the above 07/14/2021 Understand s the risks for not doing these health maintenanc e UTD on the flu shot.decli herb the shingles vaccine,pn eumonia and tdap.UTD on COVID 19 vaccineGet RSV vaccine and the new COVID 19 vaccine DEXA: 04/12/17: Osteopenia , can do calcium and vit D ordered againDEXA: 06/30/2020 : NormalDEXA : 01/17/2023 : Osteopenia , do ca and vit d RTC in 4 monthsDo labsER if any symptoms worsen,she and Perry verbalized her understand ing of the above Low back pain 478216099 M54.[address] Vallejo Not on hydrocodon Nirmala oxycodoneO n gabapentin 100mg bidOn celebrexOn naloxone Essential hypertension 67054379 I10 Not on amlodipine 5mg dailyNot on benazepril 20mg daily, given by Dr Vela advised her to stop this as now on losartanOn losartan 25mg daily, given by Dr Wakefield [facility] labs Coronary arteriosclerosis 77992965 I25.10 S/P CABG in [address]Seen [address] Dr[address] Lew, 06/26/17 and is to now get a DC pacemaker, now at the 07/23/17S/ p PM and Dr Lew on 11/13/17 and f/u in 6 months OV 11/18/2020 :[facility] Dr Lew 11/25/2019 , next apt in one year, get another apt OV 03/15/2021 :She has not kept her apt with Dr Albarado a referral again OV 07/14/2021 :[facility] Dr Lew 03/28/2201 , she instead is seeing Dr Wakefield on 08/23/2021 with ECHOSteros d on lexapro by Dr Lew, but does not want to take this OV 11/24/2021 :Keep apt with cardiology OV 03/09/2022 :Needs to see Dr Lew [facility] OV 07/13/2022 :[facility] Dr Lew 04/04/2022 , f/u in 6 months OV 12/14/2022 :[facility] Dr Lew 09/05/2022 , f/u in 6 months OV 04/10/2023 :Admitted and d/c from [facility] 04/02 to 04/05/2023 for SOB, CHF with decreased EF, treated with diuresis, needs to see cardiology , plan was to get L/R HC and JOSIE, also now on losartan OV 08/30/2023 :[facility] Dr Lew 07/10/2023 , next in 6 months OV 12/20/2022 :See Dr Lew 11/13/2023 ECHO 11/19/2023 Hyperlipidemia 53146900 E78.5 Not on any medsGet labs Terminal e sophageal web 49073968 K22.2 OV 03/09/2022 :Was told to get EGD, but she does not want this at this timeNow c/o dysphagia needs to get EGD, will refer to Dr Srivastava OV 08/30/2023 : Needs to see Dr Srivastava Pain of bi lateral knee joints 4816800714 51174 M25.[address] Fuentes for this Pain in ri ght hip joint 8967794325 62129 M25.551 OV 11/18/2020 :S/p fall and R hip painSeen by Bao VAUGHN for ortho on 11/04/2021 , and given a shot in the hipGet another referral to Dr Boyer's PA Bao Faustin as she would like to get a shot also in the L hipExplain ed to her the concern for poly pharmacy especially regarding the opiates and benzodiaze pines, she states that she will be very careful regarding these medication s OV 03/15/2021 :Seen by Bao VAUGHN for Dr Moran/p injection given 11/30/2020 in L SIJReferre d to pain management now sees Dr Whatley he is considerin g getting on medical marijuana OV 07/14/2021 :On opiatesHas seen Bao Faustin OV 11/24/2021 :Get another apt with ortho OV 03/09/2022 :Bao Faustin 01/11/2022 , f/u in 6 weeks OV 07/13/2022 :Can see Bao VAUGHN OV 12/14/2022 :Dr Boyer 10/31/2022 for LBP, tendinitis of L RC, Pain in SIJ, 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 , s/p kenalog injection OV 04/10/2023 : Does not want to see Dr Boyer at this time Leukocytosis 883246401 D 72.829 Get labsCBC WNL 03/06/2022 Chronic ki dney disease 135522078 N18.9 On calcitriol On vit D weekly as per her historyNee ds to do labsGet an apt with Dr Han, but now sees Dr Wakefield IJ Neuropathy 283189996 G62 .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 Takes is 'as needed' Generalize d anxiety disorder 72781801 F41.1 On alprazolam 0.25mg bid PRN, now do 0.5mg po bid, if any more dose needs to be given she will HAVE to see psychiatry 08/30/2023 , will decrease the dose in one month againTake NEEDED!, again today 08/30/2023 states that this is the only 'pill' that 'helps me', declined any other meds such as a SSRI or SNRI She again has been told about poly pharmacySh e again has declined any psychiatry referralNo t suicidal or homicidal, no Ideation or attempts Hyperglycemia 46503094 R 73.9 Get labs Hypoproteinemia 9721053 E88.09 Do more protein in diet, but discuss this with kidney MD too Chronic ob structive pulmonary disease 24809433 J44.9 Addendum 10/10/2023 : Noted on xrays and needs supplies, does need to see pulmonaryG et on albuterol nebulizers as per [facility] [id number] Manuela Alvarez MD [facility] [address] 01/02/2024 10:00:46 01/03/2024 11:39:16 Dyspnea on exertion 80020304 R06.09 R05.3 T78.40XA D89.9 [id number] Manuela Alvarez MD [facility] [place] [address] 02/04/2024 14:03:02 02/05/2024 08:54:04 Mild chronic obstructive pulmonary disease 354671269 J44.9 Exposure t o tuberculosis 9484645372 101 Z20.1 [id number] Jarret rodriguez MD [facility] [address] [place] [address] 04/24/2024 16:33:19 04/24/2024 17:29:57 Adult health examination 961071731 Z00.00 Screening for disorder 635358850 Z13.9 Screening - NAD 68520171 3 Z13.9 C-scope: She has declined this and understand s the risks for CRC 07/14/2021 Mammogram: Does not want to do this also. PAP: Declines this alsoNo complaints for any of the above 07/14/2021 Understand s the risks for not doing these health maintenanc e UTD on the flu shot.decli herb the shingles vaccine,pn eumonia and tdap.UTD on COVID 19 vaccineGet RSV vaccine and the new COVID 19 vaccine DEXA: 04/12/17: Osteopenia , can do calcium and vit D ordered againDEXA: 06/30/2020 : NormalDEXA : 01/17/2023 : Osteopenia , do ca and vit d RTC in 4 monthsDo labsER if any symptoms worsen,she and Perry verbalized her understand ing of the above Low back pain 217303866 M54.[address] Vallejo Not on hydrocodon Nirmala oxycodoneO n gabapentin 100mg bidOn celebrexOn naloxone Essential hypertension 75957500 I10 Not on amlodipine 5mg dailyNot on benazepril 20mg daily, given by Dr Vela advised her to stop this as now on losartanOn losartan 25mg daily, given by Dr Claus Flores [facility] labs Coronary arteriosclerosis 48900791 I25.10 S/P CABG in [address]Seen by Dr[address] Lew, 06/26/17 and is to now get a DC pacemaker, now at the 07/23/17S/ p PM and Dr Lew on 11/13/17 and f/u in 6 months OV 11/18/2020 :[facility] Dr Lew 11/25/2019 , next apt in one year, get another apt OV 03/15/2021 :She has not kept her apt with Dr Albarado a referral again OV 07/14/2021 :[facility] Dr Lew 03/28/2201 , she instead is seeing Dr Waekfield on 08/23/2021 with Petr d on lexapro by Dr Lew, but does not want to take this OV 11/24/2021 :Keep apt with cardiology OV 03/09/2022 :Needs to see Dr Lew [facility] OV 07/13/2022 :[facility] Dr Lew 04/04/2022 , f/u in 6 months OV 12/14/2022 :[facility] Dr Lew 09/05/2022 , f/u in 6 months OV 04/10/2023 :Admitted and d/c from [facility] 04/02 to 04/05/2023 for SOB, CHF with decreased EF, treated with diuresis, needs to see cardiology , plan was to get L/R HC and JOSIE, also now on losartan OV 08/30/2023 :[facility] Dr Lew 07/10/2023 , next in 6 months OV 12/20/2022 :See Dr Lew 11/13/2023 ECHO 11/19/2023 OV 04/24/2024 :Dr Lew 02/26/2024 , f/u in 6 months Hyperlipidemia [id number] E78.5 Not on any medsGet labs [facility] web [id number] K22.2 OV 03/09/2022 :Was told to get EGD, but she does not want this at this timeNow c/o dysphagia needs to get EGD, will refer to Dr Srivastava OV 08/30/2023 : Needs to see Dr Srivastava Pain of bi lateral knee joints [id number] 11402 M25.[address] Fuentes for this Pain in ri ght hip joint [id number] 52799 M25.551 OV 11/18/2020 :S/p fall and R hip painSeen by Bao VAUGHN for ortho on 11/04/2021 , and given a shot in the hipGet another referral to Dr Boyer's PA Bao Faustin as she would like to get a shot also in the L hipExplain ed to her the concern for poly pharmacy especially regarding the opiates and benzodiaze pines, she states that she will be very careful regarding these medication s OV 03/15/2021 :Seen by Bao VAUGHN for Dr Moran/p injection given 11/30/2020 in L SIJReferre d to pain management now sees Dr Whatley he is micheal smith getting on medical marijuana OV 07/14/2021 :On opiatesHas seen Bao Faustin OV 11/24/2021 :Get another apt with ortho OV 03/09/2022 :Bao Faustin 01/11/2022 , f/u in 6 weeks OV 07/13/2022 :Can see Bao VAUGHN OV 12/14/2022 :Dr Boyer 10/31/2022 for LBP, tendinitis of L RC, Pain in SIJ, 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 , s/p kenalog injection OV 04/10/2023 : Does not want to see Dr Boyer at this time OV 04/24/2024 :Get a referral to Dr Schneider Leukocytosis [id number] D 72.829 Get labs Chronic ki dney disease 578469702 N18.9 On calcitriol On vit D weekly as per her historyNee ds to do labsGet an apt with Dr Han, but now sees Dr Wakefield IJ Neuropathy [id number] G62 .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 Takes is 'as needed' Generalize d anxiety disorder [id number] F41.1 On alprazolam 0.25mg bid PRN, now do 0.5mg po bid, if any more dose needs to be given she will HAVE to see psychiatry 08/30/2023 , will decrease the dose in one month againTake NEEDED!, again today 08/30/2023 states that this is the only 'pill' that 'helps me', declined any other meds such as a SSRI or SNRI She again has been told about poly pharmacySh e again has declined any psychiatry referralNo t suicidal or homicidal, no Ideation or attempts OV 04/24/2024 :Will now have to see psychiatry , she as adamantly declinedNo t suicidal or homicidal, no Ideation or attempts Hyperglycemia 71418420 R 73.9 Get labs Hypoproteinemia 6167263 E88.09 Do more protein in diet, but discuss this with kidney MD too Chronic ob structive pulmonary disease 79686898 J44.9 Addendum 10/10/2023 : Noted on xrays and needs supplies, does need to see pulmonaryG et on albuterol nebulizers as per Maria Alvarez 02/04/2024 , states that she will never see him again as he asked her all personal questions such as if my teeth are real Weakness present [id number] M62.81 States that she got weak d/t having to walk from the car in the parking lot, now her symptoms are completely resolved, declines any interventi ons, does not want to go to the ER, states that since she sat in the office she feels well [id number] Enrico Schneider MD [facility] [place] [address] [place] [address] 06/18/2024 10:58:54 06/18/2024 14:07:26 Bilateral hip joint pain [id number] M25.551 M25.809 [id number] Jarret rodriguez MD [facility] [address] [facility], [facility] [address] [place] [address] 08/28/2024 16:30:25 08/28/2024 17:39:06 Screening - NAD [id number] Z13.9 C-scope: She has declined this and understand s the risks for CRC 07/14/2021 Mammogram: Does not want to do this also. PAP: Declines this alsoNo complaints for any of the above 07/14/2021 Understand s the risks for not doing these health maintenanc e UTD on the flu shot.decli herb the shingles vaccine,pn eumonia and tdap.UTD on COVID 19 vaccineGet RSV vaccine and the new COVID 19 vaccine DEXA: 04/12/17: Osteopenia , can do calcium and vit D ordered againDEXA: 06/30/2020 : NormalDEXA : 01/17/2023 : Osteopenia , do ca and vit d RTC in 4 monthsDo labsER if any symptoms worsen,she and Perry verbalized her understand ing of the above Low back pain [id number] M54.[address] Vallejo Not on hydrocodon Nirmala oxycodoneO n gabapentin 100mg bidOn celebrexOn naloxone Essential hypertension 44417247 I10 Not on amlodipine 5mg dailyNot on benazepril 20mg daily, given by Dr Vela advised her to stop this as now on losartanOn losartan 25mg daily, given by Dr Wakefield [facility] labs Coronary arteriosclerosis 29090398 I25.10 S/P CABG in [address]Se[address] Lew, 06/26/17 and is to now get a DC pacemaker, now at the 07/23/17S/ p PM and Dr Lew on 11/13/17 and f/u in 6 months OV 11/18/2020 :[facility] Dr Lew 11/25/2019 , next apt in one year, get another apt OV 03/15/2021 :She has not kept her apt with Dr Agostoet a referral again OV 07/14/2021 :[facility] Dr Lew 03/28/2201 , she instead is seeing Dr Wakefield on 08/23/2021 with ECHOSteros d on lexapro by Dr Lew, but does not want to take this OV 11/24/2021 :Keep apt with cardiology OV 03/09/2022 :Needs to see Dr Lew [facility] OV 07/13/2022 :[facility] Dr Lew 04/04/2022 , f/u in 6 months OV 12/14/2022 :[facility] Dr Lew 09/05/2022 , f/u in 6 months OV 04/10/2023 :Admitted and d/c from [facility] 04/02 to 04/05/2023 for SOB, CHF with decreased EF, treated with diuresis, needs to see cardiology , plan was to get L/R HC and JOSIE, also now on losartan OV 08/30/2023 :[facility] Dr Lew 07/10/2023 , next in 6 months OV 12/20/2022 :See Dr Lew 11/13/2023 ECHO 11/19/2023 OV 04/24/2024 :Dr Lew 02/26/2024 , f/u in 6 months OV 08/28/2024 : Needs to get an apt with Dr Lew Hyperlipidemia [id number] E78.5 Not on any medsGet labs [facility] web [id number] K22.2 OV 03/09/2022 :Was told to get EGD, but she does not want this at this timeNow c/o dysphagia needs to get EGD, will refer to Dr Srivastava OV 08/30/2023 : Needs to see Dr Srivastava OV 08/28/2024 : Should keep her apt with GI, referred Pain of bi lateral knee joints [id number] 85693 M25.[address] Fuentes for this Pain in ri ght hip joint [id number] 49739 M25.551 OV 11/18/2020 :S/p fall and R hip painSeen by Bao VAUGHN for ortho on 11/04/2021 , and given a shot in the hipGet another referral to Dr Boyer's PA Bao Faustin as she would like to get a shot also in the L hipExplain ed to her the concern for poly pharmacy especially regarding the opiates and benzodiaze pines, she states that she will be very careful regarding these medication s OV 03/15/2021 :Seen by Bao VAUGHN for Dr Moran/p injection given 11/30/2020 in L SIJReferre d to pain management now sees Dr Whatley he is considermarsha g getting on medical marijuana OV 07/14/2021 :On opiatesHas seen Bao Faustin OV 11/24/2021 :Get another apt with ortho OV 03/09/2022 :Bao Faustin 01/11/2022 , f/u in 6 weeks OV 07/13/2022 :Can see Bao VUAGHN OV 12/14/2022 :Dr Boyer 10/31/2022 for LBP, tendinitis of L RC, Pain in SIJ, 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 , s/p kenalog injection OV 04/10/2023 : Does not want to see Dr Boyer at this time OV 04/24/2024 :Get a referral to Dr Schneider OV 08/28/2024 :Did see Dr Schneider, s/p fall, 06/18/2024 , no interventi ons, was told to follow up with her pain management MD Leukocytosis [id number] D 72.829 Get labs Chronic ki dney disease 373109589 N18.9 On calcitriol On vit D weekly as per her historyNee ds to do labsGet an apt with Dr Han, but now sees Dr Claus COREAS Neuropathy [id number] G62 .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 Takes is 'as needed' Generalize d anxiety disorder 92648111 F41.1 On alprazolam 0.25mg bid PRN, now do 0.5mg po bid, if any more dose needs to be given she will HAVE to see psychiatry 08/30/2023 , will decrease the dose in one month againTake NEEDED!, again today 08/30/2023 states that this is the only 'pill' that 'helps me', declined any other meds such as a SSRI or SNRI She again has been told about poly pharmacySh e again has declined any psychiatry referralNo t suicidal or homicidal, no Ideation or attempts OV 04/24/2024 :Will now have to see psychiatry , she as adamantly declinedNo t suicidal or homicidal, no Ideation or attempts OV 08/28/2024 :On alprazolam , take ONLY as needed, she understand s that poly pharmacy can make her dizzy, she has had a history of fall, she does state that she got startled while sleeping at her bed and that is why she fell, I did explain that the combinatio n of opiates and benzodiaze pines can be very dangerous, and at this time she must try to wean off the benzodiaze pine and see psychiatry She will now see Salma Buckley [employer] and referral was provided to her today Hyperglycemia 72795980 R 73.9 Get labs Hypoproteinemia 5977856 E88.09 Do more protein in diet, but discuss this with kidney MD too Chronic ob structive pulmonary disease 26718188 J44.9 Addendum 10/10/2023 : Noted on xrays and needs supplies, does need to see pulmonaryG et on albuterol nebulizers as per Maria Alvarez 02/04/2024 , states that she will never see him again as he asked her all personal questions such as if my teeth are real Administra tion of influenza vaccine [id number] Z23 Health Concerns Section Related Observation LastModified by Organization Detai ls LastModified Time None Recorded Concern Status LastModified by Organization Details LastModified Time None Recorded Advance Directives Directive Y: Patient to bring copy for chart. Payers Encounter Date Sequence Insurance Name Policy Number Policy Gregory Covered Member ID Gregory Member ID Guarantor Name 01/02/2024 1 [place] Oralia S Siddhartha [id number] Oralia S Siddhartha 01/02/2024 2 [employer] (MEDICARE [place]PPLEMENT) PLAN F Oralia S Siddhartha [id number] Oralia S Siddhartha 02/04/2024 1 [place] Oralia S Siddhartha [id number] Oralia S Siddhartha 02/04/2024 2 [employer] (MEDICARE [place]PPLE[place]) PLAN F Oralia S Siddhartha [id number] Oralia S Siddhartha 04/24/2024 1 [place] Oralia S Siddhartha [id number] Oralia S Siddhartha 04/24/2024 2 [employer] (MEDICARE [place]PPLE[place]) PLAN F Oralia S Siddhartha [id number] Oralia S Siddhartha 06/18/2024 1 [place] Oralia S Siddhartha [id number] Oralia S Siddhartha 06/18/2024 2 [employer] (MEDICARE SUPPLEMENT) PLAN F Oralia S Siddhartha [id number] Oralia S Siddhartha 08/28/2024 1 [place] Oralia S Siddhartha [id number] Oralia S Siddhartha 08/28/2024 2 [employer] [place] (MEDICARE SUPPLEMENT) PLAN F Oralia S Siddhartha [id number] Oralia S Siddhartha Notes Date Note Type Note Provider Name and Address Organization Details Recorded Time 01/02/2024 text/html Primary care/Referring provider: Jarret Byrd MD Patient is here to go over shortness of breath evaluation/management . Initial development of shortness of breath: 2022 Duration of shortness of breath: 1 year Condition of shortness of breath: stable Timing of shortness of breath: starting at 7 pm Frequency: every hour Limits activities: yes Aggravating factors: walking, picking up clothing, doing dishes, boiling water, making food Alleviating factors: rest Modified [employer] (mMRC) Dyspnea Scale - Grade 2 Grade 0 I only get breathless with strenuous exercise . Grade 1 I get short of breath when hurrying on the level or walking up a slight hill . Grade 2 I walk slower than people of the same age on the level because of breathlessness or have to stop for breath when walking at my own pace on the level . Grade 3 I stop for breath after walking about 100 yards or after a few minutes on the level . Grade 4 I am too breathless to leave the house or I am breathless when dressing . Treatment history: Albuterol nebs as needed 09/2023 onlyDuoneb as needed 10/2023 only Other symptoms: Drooling: no Dysarthria: no Neck pain: no Odynophagia: no Dysphagia: no Weak mastication: no Facial weakness: no Nasal speech: no Protruding tongue: no Productive cough: white Wheezing: no Chest tightness: yes Orthopnea: 2-pillow habit Frequent throat clearing or swallowing: no Palpitations: no Heartburn: no Edema: no Environmental exposures: Nicotine smoke: 1 ppd 4304-6644 = 46 pack years [place]: no Dye: no Dust mites: yes Mold: no Damp basement: no Wood burning stove: yes until Animal dander: cockatiel x 7 years in ; cat Cockroaches: no Pollen: yes Arsenic: no Asbestos: yes Beryllium: no Cadmium: no Chromium: no [place] smoke: no Diesel fumes: no Nickel: no Silica: yes Soot: no EPWORTH SLEEPINESS SCALE (ESS) CHANCE OF DOZING SCORE 0 = would never doze 1 = slight chance of dozing 2 = moderate chance of dozing 3 = high chance of dozing SITUATION AND CHANCE OF DOZING Sitting and reading - 1 Watching television - 0 Sitting inactive in a public place (e.g. a theater or meeting) - 0 As a passenger in a car for an hour without a break - 0 Lying down to rest in the afternoon when circumstances permit - 1 Sitting and talking to someone - 0 Sitting quietly after lunch without alcohol - 0 In a car, while stopped for a few minutes in the traffic - 0 TOTAL SCORE 2 Subjectively, patient has a slight chance of dozing. Maunela Alvarez MD [address] [facility], [facility] [address], [place], [address], [place] [facility] 01/02/2024 11:02:53 02/04/2024 text/html Primary care/Referring provider: Jarret Byrd MD; Jordin Lew Jr, MD Patient is here to go over her lab test and spirometry as part of her shortness of breath evaluation/management . Initial development of shortness of breath: uration of shortness of breath: 1 yearCondition of shortness of breath: stableTiming of shortness of breath: starting at 7 pmFrequency: every hourLimits activities: yesAggravating factors: walking, picking up clothing, doing dishes, boiling water, making foodAlleviating factors: rest Modified [employer] (mMRC) Dyspnea Scale - Grade 2Grade 0 I only get breathless with strenuous exercise .Grade 1 I get short of breath when hurrying on the level or walking up a slight hill .Grade 2 I walk slower than people of the same age on the level because of breathlessness or have to stop for breath when walking at my own pace on the level .Grade 3 I stop for breath after walking about 100 yards or after a few minutes on the level .Grade 4 I am too breathless to leave the house or I am breathless when dressing . Treatment history: Albuterol nebs as needed 09/2023 onlyDuoneb as needed 10/2023 only Other symptoms:Drooling: noDysarthria: noNeck pain: noOdynophagia: noDysphagia: noWeak mastication: noFacial weakness: noNasal speech: noProtruding tongue: noProductive cough: whiteWheezing: noChest tightness: yesOrthopnea: 2-pillow habitFrequent throat clearing or swallowing: noPalpitations: noHeartburn: noEdema: no Environmental exposures:Nicotine smoke: 1 ppd 0830-0719 = 46 pack yearsPaint: noDye: noDust mites: yesMold: noDamp basement: noWood burning stove: yes until Animal dander: cockatiel x 7 years in ; catCockroaches: noPollen: yesArsenic: noAsbestos: yesBeryllium: noCadmium: noChromium: noCoal smoke: noDiesel fumes: noNickel: noSilica: yesSoot: no EPWORTH SLEEPINESS SCALE (ESS) CHANCE OF DOZING SCORE0 = would never doze1 = slight chance of dozing2 = moderate chance of dozing3 = high chance of dozing SITUATION AND CHANCE OF DOZINGSitting and reading - 1Watching television - 0Sitting inactive in a public place (e.g. a theater or meeting) - 0As a passenger in a car for an hour without a break - 0Lying down to rest in the afternoon when circumstances permit - 1Sitting and talking to someone - 0Sitting quietly after lunch without alcohol - 0In a car, while stopped for a few minutes in the traffic - 0TOTAL SCORE 2Subjectively, patient has a slight chance of dozing. Manuela Alvarez MD [address] [place] [address], [facility] [address], [place], [address], [facility] [employer] [facility] 02/04/2024 15:17:33 04/24/2024 text/html Last OV 04/10/17 :Here to review her BP issues, she states that she is off the heart monitor, and did see a edger automatic.She did bring in her machine and her BP log.She states that she is doing well otherwise, and has not noted any chest pain, sob, presyncope, syncope.No palpitations noted.She does want her meclizine as she does have some vertigo.OV: 07/10/17She is to now get a DC pacemaker from Dr. Potts also has made an apt with Dr. Villavicencio's office on the right shoulder, on 07/18/17 and would like the DEXA scan sent to his officeOV 10/09/17:Here for her follow up, she feels that she is doing well at this time, she did not do the labsShe has N/T in the hands and is s/p CTRShe also has noted some anxiety and needs her xanax, not suicidal or homicidalOV 11/08/17:Here for a month apt, she wants a refill on the xanax todayShe did do the labs on 10/15/17OV 02/07/18:Here for her routine aptShe states that she has some pain in the L foot and would like to get an xray for thisShe denies any N/T or gait problemsShe feels that she had taken cipro for 'years' and this messed upShe states that a steel frame of a bed hit her on the outside of the ankleShe did get labs done and is here to discuss theseOV 05/16/18:Here for her routine aptShe states that she is doing well, she did do the labs on 05/09/18 and is here to review theseShe states that she has had some swallowing with a ring, she has had a 'scope'OV 08/13/18:ACV:Here as she states that she is under a 'lot of stress'She states that she has was given lexapro but she does not want this as it can affect her vision, and was given by Dr Potts states that she has to do her will again and also her 3 years agoShe denies any suicidal or homicidal ideation or attemptsOV 09/12/18:Here for her follow up for anxietyShe states that the amitriptyline did not work and the ONLY thing that works is the xanaxShe also wants to get her EMG report and get to see Dr Johnson, as she still has some nerve pain in the legs, she feels that her gabapentin does helpOV 11/14/18:Here for her routine aptShe feels that she is doing betterNo new labs at this timeOV 02/06/19:Here for her routine aptShe states that she is feeling 'OK'She is also here for her MWVShe did the labs on 12/10/18OV 06/05/19:Here for her routine aptShe feels wellDid do the labs on 05/20/19OV 10/16/19:Here for her routine aptShe states that she did do the labsShe does feels some anxiety and has had a 'bad spell' as her daughter does have stage 4 kidney disease in [place] 02/12/2020:telephone call she is agreeable to do thisShe states that she is doing well, she does have some knee painrest of her ROS is negativeShe has not done any recent labs but states that she does not want to 'get out' to do themOV 06/23/2020:Here for her routine aptShe is doing wellShe did do the labs, she has not yet done the K level againOV 11/18/2020:Here for her routine aptShe states that she is in pain on the R and L hip after a fall during [place] time last year, she did see Bao VAUGHN for Dr Boyer and had a shot in the R hipShe has done her labsShe is also worried about her future pain pill refill as Dr Rogers her pain management MD is leaving his practiceOV 03/15/2021:Here for her routine aptShe is doing OK' still c/o LBP and is now see Dr Workman has not yet seen Dr Lew her cardiologistShe has also not done her labsShe is here for her MWVOV 07/14/2021:Tele visitShe is agreeable to do the tele visitShe c/o her tonsils were 'messed up; 2 days ago d/t her taking the lexapro and the methocarbomol, but no pain nowNo fevers or chills, no N/V or diarrhea, no rash, no chest pain or SOB, no wheezing, is able to swallowShe also feels that she has anxiety and has an 'attack' yesterday, none today, not suicidal or homicidalHer last labs were 05/30/2021OV 11/24/2021:Tele visit, agreeable to do the visitHere for her routine aptShe wants refill on her xanaxAlso has body aches and painsNo new labsOV 03/09/2022:Here for her routine aptShe is here with her son Harpreet did do the labsShe c/o dysphagia and states that she does have to 'chew and chew' her food, is able to drink, but has also noted weight loss d/t poor appetite since taking her COVID 19 vaccine d/t not able to taste foodsShe continues to see Dr De La Rosa for her pain management and is now on the oxycodoneOV 07/13/2022:Here for her f/u apt and MWV, no recent lab noted except a K level doneOV 12/14/2022:Here for her f/u apt, she did do the labs on 10/20/2022, she would like to get a refill on the alprazolam OV 04/10/2023:Here for TCM, she was admitted for SOB and CHF in [facility], feels better today, is agreeable to do the TCM OV 08/30/2023: Here for her f/u apt, she is also here for her MWV but she has declined this, states that her anxiety is getting a little bit worse since she has had her pacemaker change as it is has caused some tenderness, and she would like to get a higher dose of xanax, not suicidal or homicidal OV 12/20/2023: Here for her routine apt, she is also here for her MWV, states that she does have BAILEY and she did OV 04/24/2024: Here for her f/u apt and MWV, today states that she has been feeling very weak and tired and feels that she may 'just pass out', she is here with her son Perry, she does not have any new labs Jarret Byrd MD [address] [place] [address] Ye, [facility] [address], [place], [address], [place] [facility] [employer] [facility] 04/24/2024 17:53:27 08/28/2024 text/html Last OV 04/10/17 :Here to review her BP issues, she states that she is off the heart monitor, and did see a edger automatic.She did bring in her machine and her BP log.She states that she is doing well otherwise, and has not noted any chest pain, sob, presyncope, syncope.No palpitations noted.She does want her meclizine as she does have some vertigo.OV: 07/10/17Monica is to now get a DC pacemaker from Dr. Potts also has made an apt with Dr. Villavicencio's office on the right shoulder, on 07/18/17 and would like the DEXA scan sent to his officeOV 10/09/17:Here for her follow up, she feels that she is doing well at this time, she did not do the labsShe has N/T in the hands and is s/p CTRShe also has noted some anxiety and needs her xanax, not suicidal or homicidalOV 11/08/17:Here for a month apt, she wants a refill on the xanax todayShe did do the labs on 10/15/17OV 02/07/18:Here for her routine aptShe states that she has some pain in the L foot and would like to get an xray for thisShe denies any N/T or gait problemsShe feels that she had taken cipro for 'years' and this messed upShe states that a steel frame of a bed hit her on the outside of the ankleShe did get labs done and is here to discuss theseOV 05/16/18:Here for her routine aptShe states that she is doing well, she did do the labs on 05/09/18 and is here to review theseShe states that she has had some swallowing with a ring, she has had a 'scope'OV 08/13/18:ACV:Here as she states that she is under a 'lot of stress'She states that she has was given lexapro but she does not want this as it can affect her vision, and was given by Dr Potts states that she has to do her will again and also her 3 years agoShe denies any suicidal or homicidal ideation or attemptsOV 09/12/18:Here for her follow up for anxietyShe states that the amitriptyline did not work and the ONLY thing that works is the xanaxShe also wants to get her EMG report and get to see Dr Johnson, as she still has some nerve pain in the legs, she feels that her gabapentin does helpOV 11/14/18:Here for her routine aptShe feels that she is doing betterNo new labs at this timeOV 02/06/19:Here for her routine aptShe states that she is feeling 'OK'She is also here for her MWVShe did the labs on 12/10/18OV 06/05/19:Here for her routine aptShe feels wellDid do the labs on 05/20/19OV 10/16/19:Here for her routine aptShe states that she did do the labsShe does feels some anxiety and has had a 'bad spell' as her daughter does have stage 4 kidney disease in [place] 02/12[place]telephone call she is agreeable to do thisShe states that she is doing well, she does have some knee painrest of her ROS is negativeShe has not done any recent labs but states that she does not want to 'get out' to do themOV 06/23/2020:Here for her routine aptShe is doing wellShe did do the labs, she has not yet done the K level againOV 11/18/2020:Here for her routine aptShe states that she is in pain on the R and L hip after a fall during [place] time last year, she did see Bao VAUGHN for Dr Boyer and had a shot in the R hipShe has done her labsShe is also worried about her future pain pill refill as Dr Rogers her pain management MD is leaving his practiceOV 03/15/2021:Here for her routine aptShe is doing OK' still c/o LBP and is now see Dr Workman has not yet seen Dr Lew her cardiologistShe has also not done her labsShe is here for her MWVOV 07/14/2021:Tele visitShe is agreeable to do the tele visitShe c/o her tonsils were 'messed up; 2 days ago d/t her taking the lexapro and the methocarbomol, but no pain nowNo fevers or chills, no N/V or diarrhea, no rash, no chest pain or SOB, no wheezing, is able to swallowShe also feels that she has anxiety and has an 'attack' yesterday, none today, not suicidal or homicidalHer last labs were 05/30/2021OV 11/24/2021:Tele visit, agreeable to do the visitHere for her routine aptShe wants refill on her xanaxAlso has body aches and painsNo new labsOV 03/09/2022:Here for her routine aptShe is here with her son Harpreet did do the labsShe c/o dysphagia and states that she does have to 'chew and chew' her food, is able to drink, but has also noted weight loss d/t poor appetite since taking her COVID 19 vaccine d/t not able to taste foodsShe continues to see Dr De La Rosa for her pain management and is now on the oxycodoneOV 07/13/2022:Here for her f/u apt and MWV, no recent lab noted except a K level doneOV 12/14/2022:Here for her f/u apt, she did do the labs on 10/20/2022, she would like to get a refill on the alprazolam OV 04/10/2023:Here for TCM, she was admitted for SOB and CHF in [facility], feels better today, is agreeable to do the TCM OV 08/30/2023: Here for her f/u apt, she is also here for her MWV but she has declined this, states that her anxiety is getting a little bit worse since she has had her pacemaker change as it is has caused some tenderness, and she would like to get a higher dose of xanax, not suicidal or homicidal OV 12/20/2023: Here for her routine apt, she is also here for her MWV, states that she does have BAILEY and she did OV 04/24/2024: Here for her f/u apt and MWV, today states that she has been feeling very weak and tired and feels that she may 'just pass out', she is here with her son Perry, she does not have any new labs OV 08/28/2024: Here for her f/u apt, she is c/o 'pain all over' states that in April or May she did have a fall, did not seek any medical help and states that she does have pain all over, she does see her pain management MD, here with her son Perry Jarret Byrd MD [address] [place] [address], [facility] [address], [place], [address], [facility] 08/29/2024 21:26:02 OBGyn Episode No OBEpisode recorded.
--- OUTSIDE RECORDS SUMMARY | 2025-01-23 13:22 | XMS_ITS | Clinical Summary ---
Author Organization [facility] Address [address] [place] [address] Phone Care Team Providers Care Rouge Miller Name Role Phone Nathen Byrd MD Primary Care Provider Medications ALPRAZolam (XANAX) 0.5 MG Tablet alprazolam 0.5 mg tablet TAKE 1 TABLET TWICE A DAY NEEDED - NO DRINKING, DRIVING OR OTHER SEDATING MEDICATIONS Active ALPRAZolam (XANAX) 0.25 MG Tablet alprazolam 0.25 mg tablet Active amLODIPine (NORVASC) 5 MG Tablet Take 5 mg by mouth daily. 1 Active benazepril (LOTENSIN) 20 MG Tablet Take 20 mg by mouth daily. 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 12/30/2020 Abnormal serum protein electrophoresis 1 Immunizations Immunization Administration Dates Next Due Influenza, Quadrivalent, Adjuvanted 08/17/2021 Influenza, high-dose, trivalent, PF 10/01/2020,08/13/2019,08/28/2018, 017 Family History Medical History Relation Name Comments Heart Attack Father Cancer Mother Relation Name Status Comments Father Mother Social History Tobacco Use Types Packs/Day Years Used Date Smoking Tobacco: Former Cigarettes Q uit: 2000 Smokeless Tobacco: Former Alcohol Use Standard Drinks/Week Comments Never 0 (1 standard drink = 0.6 oz pur e alcohol) Comments Unknown Sex and Gender Information Value Date Recorded Sex Assigned at Not on file Legal Sex Female 10:49 AM ADMIRALTY LAWYER Gender Identity Not on file Sexual Orientation Not on file Last Filed Vital Signs Vital Sign Reading Time Taken Comments Blood Pressure 138/60 12/30/2020 2:27 PM ADMIRALTY LAWYER Pulse 60 12/30/2020 2:27 PM ADMIRALTY LAWYER Temperature 36.7 C (98.1 F) 12/30/2020 2:27 PM ADMIRALTY LAWYER Respiratory Rate 17 12/30/2020 2:27 PM ADMIRALTY LAWYER Oxygen Saturation 97% 12/30/2020 2:27 PM ADMIRALTY LAWYER Inhaled Oxygen Concentration - - Weight 54 kg (119 lb) 12/30/2020 2:27 PM ADMIRALTY LAWYER Height 160 cm (5' 3 ) 12/30/2020 2:27 PM ADMIRALTY LAWYER Body Mass Index 21.08 12/30/2020 2:27 PM ADMIRALTY LAWYER Plan of Treatment Health Maintenance Due Date Last Done Comments Hepatitis C Virus (HCV) Screening 1940 TdaP Immunization 1940 Pneumococcal Immunization (50+ years) (1 of 2 - PCV) 1958 Zoster Immunization (1 of 2) 1958 Respiratory Syncytial Virus (RSV) Immunization (Adult) (1 - 1-dose 75+ series) 2014 SARS-COV-2 Immunization (2 - Moderna risk series) 02/18/2021 01/21/2021 Influenza Immunization (#1) 07/06/202408/05, 08/27/2020, 08/13/2019, Additional history exists Hepatitis B Immunization Aged Out No longer eligible based on patient's age to complete this topic Meningococcal Immunization (ACWY) Aged Out No longer eligible based on patient's age to complete this topic Rotavirus Immunization Aged Out No lo nger eligible based on patient's age to complete this topic Insurance MEDICARE Care Teams Rouge Miller Relationship Specialty Start Date End Date Nathen Byrd MD [address] [place] [address] [place] [id number] PCP - General Internal Medicine 12/30/20
--- OUTSIDE RECORDS SUMMARY | 2025-01-23 13:22 | XMS_ITS | Clinical Summary ---
Author Organization [facility]nandez [facility] Address [address] [address] Care Team Providers Care Dowel Inserting Machine Operator Name Role Phone Nathen Byrd MD Primary Care Provider Allergies Active Allergy Reactions Criticality Noted Date Comments Nsaids (Non-Steroidal Anti-Inflammatory Drug) Nausea and Vomiting Low 12/29/2022 Medications gabapentin (NEURONTIN) 100 mg capsule gabapentin 100 mg capsule TAKE 1 CAPSULE BY MOUTH TWICE DAILY NEEDED Active ALPRAZolam (XANAX) 0.5 mg tablet TAKE 1 TABLET BY MOUTH TWICE DAILY NEEDED 2 Active calcitRIOL (ROCALTROL) 0.25 mcg capsule calcitriol 0.25 mcg capsule TAKE 1 CAPSULE BY MOUTH EVERY DAY Active losartan (COZAAR) 100 mg tablet Take 100 mg by mouth daily. 3 Active HYDROcodone-ac etaminophen (NORCO) 10-325 mg Tablet TAKE 1 TABLET BY MOUTH TWICE DAILY FOR LUMBAR RADICULOPATHY NEEDED 3 Active oxyCODONE-acet aminophen (PERCOCET) 10-325 mg Tablet oxycodone-acetami nophen 10 mg-325 mg tablet 1 Active Active Problems No known active problems Social History Tobacco Use Types Packs/Day Years Used Date Smoking Tobacco: Former Cigarettes 1.5 45 0 11/05/1956 - 11/05/2000 Smokeless Tobacco: Never Tobacco Cessation:Counseling Given: Not Answered Comments Unknown Sex and Gender Information Value Date Recorded Sex Assigned at Not on file Legal Sex Female 2:41 PM CDT Gender Identity Not on file Sexual Orientation Not on file Last Filed Vital Signs Vital Sign Reading Time Taken Comments Blood Pressure 128/56 02/05/2023 1:01 PM CDT Pulse 78 02/05/2023 12:57 PM CDT Temperature 36.5 C (97.7 F) 02/05/2023 12:57 PM CDT Respiratory Rate 10 02/05/2023 12:5 7 PM CDT Oxygen Saturation 100% 02/05/2023 12: 57 PM CDT Inhaled Oxygen Concentration - - Weight 50.7 kg (111 lb 12.8 oz) 023 12:57 PM CDT Height 160 cm (5' 3 ) 12/29/2022 11:19 AM HEALTH ADMINISTRATOR Body Mass Index 19.8 12/29/2022 11:19 AM HEALTH ADMINISTRATOR Plan of Treatment Health Maintenance Due Date Last Done Comments DTAP/TDAP/TD VACCINES (1 - Tdap) 1958 PNEUMOCOCCAL VACCINE 50+ YEA RS (1 of 1 - PCV) 1989 ZOSTER VACCINE (1 of 2) 1989 OSTEOPOROSIS SCREENING 01/21/2004 RSV VACCINE (60+ or ) (1 - 1-dose 75+ series) 2014 INFLUENZA VACCINE (#1) 2024 , 08/07/2021, 08/27/2020, Additional history exists Insurance MEDICARE PART A AND B [facility] Care Teams Dowel Inserting Machine Operator Relationship Specialty Start Date End Date Nathen Byrd MD PCP - General Internal Medicine 12/29/22
[2025-01-23] MEDS: SODIUM CHLORIDE 0.9% IV 1,000 ML 999 ML IV CONT (13:23)
[2025-01-23 13:40] LABS: Add Urine Microscopic? YES; Appearance Urine Cloudy (Clear); Bacteria Urine 4+ /hpf; Bilirubin Urine Negative (Negative); Blood Urine 3+ (Negative); Color Urine Yellow (Yellow); Glucose Urine UA Negative (Negative); Ketones Urine Negative (Negative); Leukocyte Esterase Ur 3+ LEU/UL (Negative); Need Manual Microscopic Reviewed; Nitrate Urine Negative (Negative); Protein Urine 1+ mg/dL (Negative); RBC Urine 0-2 /hpf (0-2); Specific Grav Ur 1.009 (1.001-1.035); Squamous Epithelial Cell Urine None Seen /hpf (Few); Urobilinogen Urine 0.2 mg/dL (<2.0); WBC Urine >100 /hpf (0-3); pH Urine 5.5 (5.0-9.0)
--- NOTE | 2025-01-23 13:44 | ED_ITS ---
HPI - Weakness General Chief complaint: Weakness Stated complaint: lethargic Time Seen by Provider: 01/23/25 12:34 Source: patient and family Mode of arrival: EMS Limitations: no limitations History of Present Illness HPI Narrative: 85-year-old with a history of fibromyalgia, anxiety disorder was brought in by family with the complaints of generalized weakness for past 1 week. Patient states she had multiple deaths in the family in the last 1 week and ever since then she has been declining, not eating or drinking. She states that she has no appetite feels extremely weak and also has a headache. Family at the bedside states that she is constantly sleeping. MD Complaint: generalized weakness Onset (ago): week(s) (1) Duration: constant Location: generalized Relieving factors: none Exacerbating factors: none Related Data Allergies Allergy/AdvReac Type Severity Reaction Status Date / Time ciprofloxacin Allergy Unknown Unknown Verified 01/23/25 13:19 NONSTEROIDAL AdvReac Mild VOMITING Uncoded 01/23/25 13:19 Review of Systems 2 Review of Systems: All systems reviewed & are unremarkable except as noted in HPI and below Constitutional: Constitutional: Reports no additional constitutional complaints Eyes: Eyes: Reports no additional eye complaints ENT: Reports system reviewed and no additional complaints, except as documented Cardiovascular: Cardiovascular: Reports no additional cardiovascular complaints Respiratory: Respiratory: Reports no additional respiratory complaints Gastrointestinal: Gastrointestinal: Reports no additional gastrointestinal complaints Genitourinary: Genitourinary: Reports no additional female genitourinary complaints Musculoskeletal: Musculoskeletal: Reports no additional musculoskeletal complaints Integumentary/Breasts: Skin/Breast: Reports system reviewed and no additional complaints, except as docu Neurologic: Reports system reviewed and no additional complaints, except as documented Psychiatric: Psychiatric: Reports no additional psychiatric complaints Endocrine: Endocrine: Reports no additional endocrine complaints Exam 2 Narrative: GENERAL: Well-appearing, thin and frail, and in no acute distress. HEAD: Normocephalic, atraumatic. EYES: PERRLA and EOMI. ENT: Nares clear, no rhinorrhea or epistaxis. Mucous membranes moist. NECK: Supple. CHEST: Clear to auscultation. No respiratory distress. HEART: Regular rate and rhythm. No murmur heard. Normal peripheral pulses. ABDOMEN: Soft, nontender, nondistended, normal active bowel sounds. EXTREMITIES: Normal range of motion. No edema. SKIN: Warm, dry, no rash. NEURO: No focal deficits. Alert and oriented x3. PSYCH: Normal mood and affect. Course Course Emergency Course: Patient lying on the stretcher in no discomfort. Informed her about the lab work, chest x-ray findings. A agreeable with admission. I discussed with the hospitalist accepted the patient. Vital Signs Vital signs: Vital Signs Pulse Rate 76 01/23/25 12:08 Respiratory Rate 23 H 01/23/25 12:08 Temperature 36.5 C 01/23/25 12:18 Pulse Rate 83 01/23/25 13:16 Respiratory Rate 25 H 01/23/25 13:16 Blood Pressure 92/66 L 01/23/25 13:16 Pulse Oximetry 93 01/23/25 12:18 Oxygen Delivery Room Air 01/23/25 12:18 MDM - Weakness Differential Diagnosis Differential diagnosis: Likely anemia, hypothyroidism, dehydration and other (Grief reaction) Medical Records Attestation: I reviewed the patient's medical records. Lab Data Attestation: I reviewed the patient's lab results. 01/23/25 12:15 01/23/25 12:15 Labs: Lab Results 01/23/25 01/23/25 Range/Units 12:15 13:02 WBC 23.8 H (4.5-10.0) K/mm3 RBC 4.27 (4.2-5.4) M/mm3 Hgb 12.2 (12.0-15.0) g/dL Hct 37.8 (37.0-47.0) % MCV 88.5 (80-100) fl MCH 28.6 (26-34) pg MCHC 32.3 (32-36) g/dl RDW 14.6 H (11.5-14.5) % Plt Count 144 L D (150-375) k/mm3 MPV 13.8 H (7.4-10.4) fl Immature Gran % (Auto) Not Reportable Neut % (Auto) Not Reportable Lymph % (Auto) Not Reportable [place] % (Auto) Not Reportable Eos % (Auto) Not Reportable Baso % (Auto) Not Reportable Lymph # (Auto) Not Reportable [place] # (Auto) Not Reportable Eos # (Auto) Not Reportable Baso # (Auto) Not Reportable Abs Immat Gran (auto) Not Reportable Absolute Neuts (auto) Not Reportable Absolute Nucleated RBC Not Reportable Total Counted 100 Neutrophils % (Manual) 87 H (46-73) % Band Neutrophils % 4 (0-6) % Lymphocytes % (Manual) 5 L (18-44) % Monocytes % (Manual) 4 (3-9) % Nucleated RBC % Not Reportable Abs Neuts (Manual) 21.65 H (1.7-7.2) K/mm3 Abs Lymphs (Manual) 1.19 (1.1-4.5) K/mm3 Abs Monocytes (Manual) 0.95 H (0.1-0.90) K/mm3 Platelet Estimate Slightly decreased (Adequate) % Immature Plt Fraction 15.8 H (0.9-11.2) % Anisocytosis 1+ Ovalocytes 1+ [place] Cells 1+ Schistocytes Rare Sodium 134 L (137-145) mmol/L Potassium 2.9 L (3.4-5.0) mmol/L Chloride 93 L (98-107) mmol/L Carbon Dioxide 30 (22-30) mmol/L Anion Gap 11 (4-12) mmol/L BUN 66 H D (7-17) mg/dL Creatinine 2.80 H (0.7-1.0) mg/dL Estim Creat Clear Calc Not Reportable Estimated GFR 16 L (59 - ) Glucose 92 (65-110) mg/dL Calcium 9.5 (8.4-10.2) mg/dL Total Bilirubin 1.5 H (0.2-1.3) mg/dL AST 27 (14-36) U/L ALT 33 (6-35) U/L Alkaline Phosphatase 226 H (38-126) U/L Total Protein 6.0 L (6.3-8.2) g/dL Albumin 3.2 L (3.5-5.1) g/dL Urine Color Yellow (Yellow) Urine Appearance Cloudy H (Clear) Urine pH 5.5 (5.0-9.0) Ur Specific [place] 1.009 (1.001-1.035) Urine Protein 1+ H (Negative) mg/dL Urine Glucose (UA) Negative (Negative) mg/dL Urine Ketones Negative (Negative) mg/dL Ur Blood (Man) 3+ H (Negative) Urine Nitrate Negative (Negative) Urine Bilirubin Negative (Negative) Urine Urobilinogen 0.2 (<2.0) mg/dL Add Ur Microanalysis Reviewed Leukocyte Esterase Rfl 3+ H (Negative) JOSY/UL Urine RBC 0-2 (0-2) /hpf Urine WBC >100 H (0-3) /hpf Ur Squamous Epith Cells None seen (Few) /hpf Urine Bacteria 4+ H /hpf Urine Casts 6-10 Imaging Data Attestation: I personally reviewed and interpreted this imaging study as follows: Radiologist's impression: ITS Impressions Chest X-Ray 01/23/25 12:45 Impression: No acute abnormality. ECG Data EKG #1: ECG completion date: 01/23/25 ECG completion time: 12:09 EKG Interpretation: normal rate (71), non-specific ST changes, no ST changes, normal QRS and normal QT Discharge Plan Discharge Clinical Impression: LIANE (acute kidney injury), Acute UTI Patient Disposition: Still a Patient Condition: Stable Patient Language: Croatian Follow-up/Referrals: Carson,MD Nathen [Primary Care Provider] - Time of Disposition: 14:01
--- NOTE | 2025-01-23 13:53 | PC.NURSE ---
vascular access contacted at this time to come obtain a second line and blood cultures
[2025-01-23] MEDS: POTASSIUM CHLORIDE INJ 40 MEQ in SODIUM CHLORIDE 0.9% IV 500 ML 130 MEQ IVPB (14:05)
--- NOTE | 2025-01-23 14:05 | P.HP_ITS ---
H&P: HPI History of Present Illness Date/Time: 01/23/25 14:05 Chief Complaint: Weakness Narrative: 85-year-old female who recently lost her daughter and family member presents the hospital with 1 week of not eating. HPI is limited as patient states that she is being asked to make questions. Patient is very flat. Cousin at bedside. She states that over the last couple months the patient has been declining. Last week her daughter had and so did another family member. Patient states that she cannot swallow pills and often chokes on food. In the ED Leukocytosis at 23.8, platelet count of 144, sodium of 134, potassium of 2.9, BUN of 66, creatinine of 2.8 with baseline being 1.2, GFR of 16, total bili of 1.5 alkaline phos of 226, UA shows 3+ leukocyte esterase negative for nitrates, 4+ bacteria. Chest x-ray shows no acute process. EKG shows sinus rhythm rate of 71. Blood pressure 92/66. In the ED patient received Rocephin, 1 L bolus, and 40 mEq of potassium. Blood cultures and urine culture pending. Review of Systems Review of Systems: Patient refuses to answer [facility] Social History Social History Smoking status: Former smoker Smoking end date: 11/05/20 Do You Feel Safe in your Home?: No Lack of Transportation: YES Lack of Food: Never True Current Housing: I Have Housing Concerned About Future Housing: YES Difficulty Paying Gas/Electric Bills: YES Difficulty Paying for Meds: YES Currently Unemployed: No Education: Decline to Answer Difficulty w/ Childcare or Family Care: No Spiritual care concerns: No Meds Home Medications and Allergies Home Medications ?Medication ?Instructions ?Recorded ?Confirmed ?Type alprazolam 0.5 mg tablet 0.5 mg PO BID PRN anxiety 01/23/25 01/23/25 History furosemide 20 mg tablet 20 mg PO DAILY 01/23/25 01/23/25 History gabapentin 100 mg capsule 100 mg PO BID 01/23/25 01/23/25 History losartan 25 mg tablet 25 mg PO DAILY 01/23/25 01/23/25 History oxycodone-acetaminophen 10 mg-325 1 tablet PO TID PRN back pain 03/21/25 03/21/25 History mg tablet Allergies Allergy/AdvReac Type Severity Reaction Status Date / Time ciprofloxacin Allergy Unknown Unknown Verified 01/23/25 13:19 NONSTEROIDAL AdvReac Mild VOMITING Uncoded 01/23/25 13:19 Vital Signs Vital Signs - 24 hr 01/23/25 12:08 01/23/25 12:15 01/23/25 12:16 Temperature Pulse Rate 76 81 90 Respiratory Rate 23 H 15 19 Blood Pressure 113/72 Pulse Oximetry 93 Oxygen Delivery 01/23/25 12:18 01/23/25 12:45 01/23/25 13:00 Temperature 97.7 F Pulse Rate 81 79 78 Respiratory Rate 20 19 30 H Blood Pressure 115/70 Pulse Oximetry 93 Oxygen Delivery Room Air 01/23/25 13:03 01/23/25 13:15 01/23/25 13:16 Temperature Pulse Rate 77 77 83 Respiratory Rate 19 28 H 25 H Blood Pressure 108/40 L 92/66 L Pulse Oximetry Oxygen Delivery Exam 2 Narrative: General: Cachectic ill-appearing HEENT: normocephalic, atraumatic. Mucous membranes moist. EOMI, PERRLA, bilateral sclera anicteric, no conjunctival injection. Neck supple without JVD, lymphadenopathy, or bruit. Respiratory: clear to ascultation bilaterally. No rales/rhonic/wheezes. Cardiovascular: Regular rate and rhythm, normal S1-S2 upon ascultation. No murmurs, rubs, or clicks. PMI is nondisplaced, capillary refill less than 3 second. Abdomen: Soft, round, no pulsatile masses, nondistended and nontender. No rebound, no guarding. No CVA tenderness, no hepatosplenomegaly. Bowel sounds present to all four quadrants. No high pitch or tinkling sounds, resonant to percussion. Extremities: No cyanosis, clubbing, or edema present. Pulses are palpable 2/2. Active ROM to all four extremities. Neuro: Alert and orientated x 4. PERRLA. Cranial nerves 2-12 intact without focal deficit. Skin: Warm, dry, and intact, without rash, erythema, or lesion. Psych: pleasant, cooperative, normal speech, normal affect, no hallucinations, no dysarthia H&P: Results Labs Labs: Short CBC 01/23/25 Range/Units 12:15 WBC 23.8 H (4.5-10.0) K/mm3 Hgb 12.2 (12.0-15.0) g/dL Hct 37.8 (37.0-47.0) % Plt Count 144 L D (150-375) k/mm3 BMP 01/23/25 12:15 Sodium 134 L Potassium 2.9 L Chloride 93 L Carbon Dioxide 30 BUN 66 H D Creatinine 2.80 H Glucose 92 Calcium 9.5 Liver Function 01/23/25 Range/Units 12:15 Total Bilirubin 1.5 H (0.2-1.3) mg/dL AST 27 (14-36) U/L ALT 33 (6-35) U/L Alkaline Phosphatase 226 H (38-126) U/L Albumin 3.2 L (3.5-5.1) g/dL Urine 01/23/25 Range/Units 13:02 Urine Color Yellow (Yellow) Urine Appearance Cloudy H (Clear) Urine pH 5.5 (5.0-9.0) Ur Specific [place] 1.009 (1.001-1.035) Urine Protein 1+ H (Negative) mg/dL Urine Glucose (UA) Negative (Negative) mg/dL Assessment and Plan Assessment and plan (1) Failure to thrive: Status: Acute Assessment and Plan: Recent loss of 2 family members Nutrition consult Ensure q.i.d. Speech consult NPO (2) LIANE (acute kidney injury): Code(s): N17.9 - Acute kidney failure, unspecified Status: Acute Assessment and Plan: IVF for hydration Repeat BMP in the morning Avoid nephrotoxic medications (3) Acute UTI: Code(s): N39.0 - Urinary tract infection, site not specified Status: Acute Assessment and Plan: IV Rocephin IVF (4) Hypokalemia: Code(s): E87.6 - Hypokalemia Status: Acute Assessment and Plan: Secondary to poor intake Replete as needed Repeat potassium level after infusion-WD L (5) Hypotension: Code(s): I95.9 - Hypotension, unspecified Status: Acute Assessment and Plan: Secondary to acute dehydration Fluid bolus given in ED For repeat fluid bolus IVF (6) Leukocytosis: Code(s): D72.829 - Elevated white blood cell count, unspecified Status: Acute Assessment and Plan: On admission 23.8 UTI on Rocephin UA culture and sensitivities pending Blood cultures pending Check lactic acid within normal limits Quality VTE Prophylaxis VTE prophylaxis: mechanical ordered and pharmacologic ordered Hospitalist [facility] Advance Care Plan I have confirmed that the patient's Advanced Care Plan is present, code status is documented, or surrogate decision maker is listed in patient medical record.: Yes Medication Reconciliation I have utilized all available resources to obtain, update and review the patients current medications (includes all prescriptions, OTC, herbals, cannabis, and nutritional supplements).: Yes
--- NOTE | 2025-01-23 14:24 | PC.NURSE ---
vascular access at bedside at this time.
--- NOTE | 2025-01-23 14:31 | PC.NURSE ---
vascular access unable to obtain blood cultures/ second iv. phlebotomy at bedside at this time.
--- NOTE | 2025-01-23 14:36 | PC.NURSE ---
report called to mau anthony on [facility] at this time.
--- NOTE | 2025-01-23 14:55 | PC.NURSE ---
discussed only one blood culture obtained with Dr. Sims, he said to start the antibiotics with one set drawn and not to wait for a second set to be obtained.
--- NOTE | 2025-01-23 14:56 | PC.NURSE ---
phlebotomy was able to only obtain one set of blood cultures.
--- OUTSIDE RECORDS SUMMARY | 2025-01-23 15:11 | XMS_ITS | Clinical Summary ---
Author Organization [facility] Address [address] [place] [address] Phone Care Team Providers Care Processing Talc And Borate Supervisor Name Role Phone Nathen Byrd MD Primary [...] syndrome 12/30/2020 Coronary artery disease invo lving [place] coronary artery of [place] heart without angina pectoris 12/30/2020 Abnormal serum [...] on file Legal Sex Female 10:49 AM CLAY STAIN MIXER Gender Identity Not on file Sexual Orientation Not on file Last Filed Vital Signs Vital Sign Reading Time Taken Comments Blood Pressure 138/60 12/30/2020 2:27 PM CLAY STAIN MIXER Pulse 60 12/30/2020 2:27 PM CLAY STAIN MIXER Temperature 36.7 C (98.1 F) 12/30/2020 2:27 PM CLAY STAIN MIXER Respiratory Rate 17 12/30/2020 2:27 PM CLAY STAIN MIXER Oxygen Saturation 97% 12/30/2020 2:27 PM CLAY STAIN MIXER Inhaled Oxygen Concentration - - Weight 54 kg (119 lb) 12/30/2020 2:27 PM CLAY STAIN MIXER Height 160 cm (5' 3 ) 12/30/2020 2:27 PM CLAY STAIN MIXER Body Mass Index 21.08 12/30/2020 2:27 PM CLAY STAIN MIXER Plan of Treatment Health Maintenance Due Date [...] complete this topic Insurance MEDICARE Care Teams Processing Talc And Borate Supervisor Relationship Specialty Start Date End Date Nathen Byrd MD [address] [place] [address] [place] [id number] PCP - General Internal Medicine 12/30/20
--- OUTSIDE RECORDS SUMMARY | 2025-01-23 15:11 | XMS_ITS | Clinical Summary ---
Author Organization [facility]isha [facility]andez [facility] Address [address] [address] Care Team Providers Care Stock Lifter Name Role Phone Nathen Byrd MD Primary [...] cm (5' 3 ) 12/29/2022 11:19 AM BLOW TORCH BURNER Body Mass Index 19.8 12/29/2022 11:19 AM BLOW TORCH BURNER Plan of Treatment Health Maintenance Due Date Last Done Comments DTAP/TDAP/TD VACCINES (1 - Tdap) 1958 PNEUMOCOCCAL VACCINE 50+ YEA RS (1 of 1 - PCV) 1989 ZOSTER VACCINE (1 of 2) 1989 OSTEOPOROSIS SCREENING 01/21/2004 RSV VACCINE (60+ or ) (1 - 1-dose 75+ series) 2014 INFLUENZA VACCINE (#1) 2024 , 08/07/2021, 08/27/2020, Additional history exists Insurance MEDICARE PART A AND B [facility] Care Teams Stock Lifter Relationship Specialty Start Date End Date Nathen Byrd MD PCP - General Internal Medicine 12/29/22
--- OUTSIDE RECORDS SUMMARY | 2025-01-23 15:11 | XMS_ITS | Clinical Summary ---
Author Organization [facility] Address [address] [address] Care Team Providers Care Hide Handler Name Role Phone Nathen Byrd MD Primary Care Provider [phone] Social History Tobacco Use Types Packs/Day Years [...] age to complete this topic Insurance MEDICARE [facility] Care Teams Hide Handler Relationship Specialty Start Date End Date Nathen Byrd MD [address], [address] [place], [place] [id number] PCP - General Internal Medicine 11/28/21
--- OUTSIDE RECORDS SUMMARY | 2025-01-23 15:11 | XMS_ITS | CONTINUITY OF CARE DOCUMENT ---
Author Name jody vera Address Unknown Organization [facility] Address [address] [facility] [address] [place] [address] Phone [phone] Care Team Providers Care Assistant Manager Name Role Phone Eleno SAL, Jordin Unavailable [phone] ROSS SAL, JARRET Unavailable JARRET HAWKINS MD Unavailable PROBLEMS Condition Status Date Provider Notes S/P [...] CHF, systolic, chronic active Jordin Johansen MD Difficulty swallowing active Jordin Johansen MD Mitral regurgitation, severe active Stacey Peres REPAIR MECHANIC ENCOUNTERS Date Type Provider Location Encounter Diag nosis - In-person encounter Office Visit Jordin Johansen MD [facility] - In-person encounter Office Visit Jordin Johansen MD [facility] Mitral regurgitation, severe - In-person encounter Office Visit Jordin Johansen MD [facility] Difficulty swallowing - In-person encounter Office Visit Jordin Johansen MD [facility] - In-person encounter Office Visit Jordin Johansen MD [facility] Cardiomyopathy, dilatedCHF, systolic, chronic - In-person encounter Office Visit Jordin Johansen MD [facility] - In-person encounter Office Visit Jordin Johansen MD [facility] - In-person encounter Office Visit Jordin Johansen MD [facility] Pacemaker: - In-person encounter Office Visit Jesús Devlin MD [facility] Chest pain - In-person encounter Office Visit Jesús Devlin MD [facility] - In-person encounter Office Visit Tammy Vela MD [facility] Weight loss - In-person encounter Office Visit Jordin Johansen MD [facility] - In-person encounter Office Visit Jordin Johansen MD [facility] - In-person encounter Office Visit Jordin Johansen MD [facility] Depression - In-person encounter Office Visit Jordin Johansen MD [facility] - In-person encounter Office Visit Jordin Johansen MD [facility] - In-person encounter Office Visit Jordin Johansen MD [facility] - In-person encounter Office Visit Jordin Johansen MD [facility] Sick sinus syndrome - In-person encounter Office Visit Jordin Johansen MD [facility] Family History of CVA or Stroke:Hyperlipidem iaHypertension--ef 55% 12/2019Coronary Heart Disease VITAL SIGNS Date Observation Value Provider Body Mass Index (Ratio) 18.95 kg/m2 Earnest Johansen MD weight E&M 107 [lb_av] Jordin Rush respiratory rate E&M 16 /min Indra Noman blood pressure, cuff size regular Do [facility] blood pressure, diastolic 64 mm[Hg] Do [facility] blood pressure, systolic 118 mm[Hg] Ti mark Noman oxygen saturation, oximetry 100 % [facility] height E&M 63 [in_i] [facility] Body Mass Index (Ratio) 18.95 kg/m2 Earnest Johansen MD blood pressure, cuff size regular [facility] blood pressure, diastolic 87 mm[Hg] [facility] blood pressure, systolic 137 mm[Hg] Joni loza pulse rate 86 /min Trae y respiratory rate E&M 12 /min Trae weight E&M 107 [lb_av] Trae y height E&M 63 [in_i] Trae y Body Mass Index (Ratio) 19.31 kg/m2 Earnets Johansen MD oxygen saturation, oximetry 94 % [...] respiratory rate E&M 12 /min Tania G jacqueenenfeldbekah pulse rate 70 /min Tania Grsri [facility] weight E&M 107 [lb_av] Tania Gruenenfe [facility] height E&M 63 [in_i] Tania Socratese [facility] Body Mass Index (Ratio) 18.60 kg/m2 Earnest Johansen MD blood pressure, cuff size regular Ke rri Gruenenfelder blood pressure, diastolic 62 mm[Hg] Ke rri Gruenenfeldbekah blood pressure, systolic 102 mm[Hg] Kathya ri Ryanueneyelena oxygen saturation, oximetry 97 % Tania Maria Elena respiratory rate E&M 12 /min Tania G jacqueenenfeldbekah pulse rate 91 /min Tania Gruenenfe [facility] weight E&M 105 [lb_av] Tania Gruenenfe [facility] height E&M 63 [in_i] Tania Gruenenfe [facility] Body Mass Index (Ratio) 19.66 kg/m2 Earnest [...] lder weight E&M 118 [lb_av] Tania Durand [facility] height E&M 63 [in_i] Tania Durand [facility] Body Mass Index (Ratio) 22.32 kg/m2 Earnest [...] garzon weight E&M 132 [lb_av] Meryl Cohen [facility] height E&M 63 [in_i] Meryl Cohen [facility] Body Mass Index (Ratio) 24.80 kg/m2 Earnest Johansen MD blood pressure, diastolic 68 mm[Hg] La Raphael blood pressure, systolic 146 mm[Hg] Yvonne Raphael oxygen saturation, oximetry 98 % Meryl Raphael respiratory rate E&M 18 /min Chanel Raphael pulse rate 62 /min Meryl garzon weight E&M 140 [lb_av] Meryl garzon height E&M 63 [in_i] Meryl garozn Body Mass Index (Ratio) 25.79 kg/m2 Earnest [...] by mouth once a day Stacey Ventimiglia REPAIR MECHANIC losartan 25 mg tablet completed - Stacey Ventimiglia REPAIR MECHANIC furosemide 20 mg tablet completed TAKE 1 [...] tablet once a day - Stacey Peres REPAIR MECHANIC amlodipine 5 mg tablet completed TAKE 1 [...] day - Meryl Raphael VITAMIN D (ERGOCALCIFEROL) 83940 UNIT ORAL CAPSULE completed once a week [...] history of marijuana use no Stacey Ventimiglia [facility] drug use no Stacey Ventimig vanessa REPAIR MECHANIC alcohol use no Stacey Ventimig vanessa REPAIR MECHANIC passive cigarette sm manuel[place] exposure yes Stacey Ventimiglia [facility] smoking, year quit 2000 Stacey Ve ntimiglia [facility] cigarette use yes Stacey Ventimi glia REPAIR MECHANIC smoking status Former smoker Stacey Venti miglia [facility] Underweight no Jordin Rush alcohol use no [...] José Manuel yates cigarette use yes Mariela Artemio smoking status Former smoker Mariela Artemio social [...] Arredondo smoking, year quit 2000 Tania Morales enenfelder [...] Management Plan continue current therapy Stacey Ventimiglia REPAIR MECHANIC HRA, CV Assess/Plan, Angina (inactive) Management Plan continue current therapy Nadia Ordaz [facility] HRA, CV Assess/Plan, Angina (inactive) Management Plan [...] Policy type / Coverage type Maksim red libertarian [place] MEDICARE PART B Medicare [id number] [facility] [employer] [phone] ADVANCE DIRECTIVES Name Date DISCUSSED - NO DECISION MADE TREATMENT PLAN Date Name Performer [id number],S, Jordin odom MD [id number],S, Jordin odom MD [id number],S, Jordin odom MD [id number],S, Jordin odom MD [id number],S, Jordin odom MD [id number],S, Jordin odom MD [id number],S,Check lipid p winter and Lp(a) Jordin Johansen MD [id number],S, Jordin odom MD [id number],S, Jordin odom MD [id number],S, Jordin odom MD [id number],W,P aces 96% in RV. Will upgrade to BiV pacer to restore sychrony. Jordin Johansen MD [id number],SJordin MD [id number],S, Jordin odom MD [id number],S, Jordin odom MD [id number],S, Jordin odom MD [id number],S, Jordin odom MD [id number],S, Jordin odom MD [id number],S,S tart RPM (remote patient monitoring) Jordin Johansen MD [id number],S, Jordin odom MD [id number],S, Jordin odom MD [id number],S, Jordin odom MD [id number],S, Jordin odom MD [id number],S, Jordin odom MD [id number],S, Jordin odom MD [id number],B, Jordin odom MD [id number],S, Jordin odom MD [id number],S, Dany Ahmedza i [id number],S, Dany Ahmedza i [id number],S, Dany Ahmedza i [id number],S, Dany Ahmedza i Cardiology Jordin Johansen MD Cardiology Jordin Johansen MD Cardiology Jordin Johansen MD Cardiology Jordin Johansen MD Cardiology Jordin Johansen MD Cardiology Jordin Johansen MD Cardiology:refuses f ollow up EGD e ncouraged sitting up right for meals s mall bites and crushing pills Stacey Ventimiglia REPAIR MECHANIC Cardiology:on last e cho g oal is symptom management at this time [facility] Cardiology:resume jean pierre osborne and monitor T [...] Take 1 tablet by mouth every day [facility] Cardiology:Ef of 30% . I CD in [...] Take 1 tablet by mouth every day [facility]:Ef unchan ged at 30% with severe MR O nce again reinforced with patient that she must take meds as prescribed p BNP 11,500 p atient voiced understanding and will resume meds she will return in 3 months or sooner if needed p atient will consider cardiac rehab [facility] Cardiology: c onsider stress test if with [...] Cardiology: n ormal device function Nadia [place] [facility] Cardiology:lvef 35% stopped taking losartan months ago n yha 3 symptoms l abs, echo, cxr w ould benefit from getting back on losartan, and starting bb, jardiance. Hesistant to take medications. C ontinue lasix. s ymptoms largely from uncontrolled symptoms. Nadia Ordaz [facility] Cardiology Jordin Johansen MD Cardiology Jordin Johansen [...] Cardiology Follow up :Diet contr olled. Kevin Sebastian Cardiology Follow up :Blood pressure control is satisfactory. Kevin Kyte Cardiology Follow u p :Has significant life stressors. Further management as per yourself. Kevin Sebastian Cardiology Follow up :Has lost 8lbs in [...] Regadenoson Complete Echo Complete Echo DLCO - 31019 FRC - 27910 FVC - 45042 Stress Regadenoson Complete Echo STR - Adenosine [...] Jordin Johansen MD INTERROGATION REMOTE </90 D FURNACE COMBUSTION TESTER REVIEW completed Pacemaker Interrogation, Remote (Prof) Jordin Johansen MD INTERROGATION EVAL REMOTE </90 D 1/2/PERSONNEL TECHNICIAN LEAD P completed ICM Interrogation, Remote (Prof) [...] Jordin Johansen MD INTERROGATION REMOTE </90 D FURNACE COMBUSTION TESTER REVIEW completed Pacemaker Interrogation, Remote (Prof) Jordin Johansen MD INTERROGATION EVAL REMOTE </90 D 1/2/PERSONNEL TECHNICIAN LEAD P completed ICM Interrogation, Remote (Prof) [...] Jordin Johansen MD INTERROGATION REMOTE </90 D FURNACE COMBUSTION TESTER REVIEW completed Pacemaker Interrogation, Remote (Prof) Jordin Johansen MD INTERROGATION EVAL REMOTE </90 D 1/2/PERSONNEL TECHNICIAN LEAD P completed ICM Interrogation, Remote (Prof) Jordin Johansen MD INTERROGATION EVAL REMOTE </30 D CV MNTR SYS completed Pacemaker Interrogation, Remote (Tech) Jordin Johansen MD INTERROGATION REMOTE </90 D FURNACE COMBUSTION TESTER REVIEW completed Pacemaker Interrogation, Remote (Prof) Jordin Johansen MD INTERROGATION EVAL REMOTE </90 D 1/2/PERSONNEL TECHNICIAN LEAD P completed ICM Interrogation, Remote (Prof) [...] Jordin Johansen MD INTERROGATION REMOTE </90 D FURNACE COMBUSTION TESTER REVIEW completed Pacemaker Interrogation, Remote (Prof) Jordin Johansen MD INTERROGATION EVAL REMOTE </90 D 1/2/PERSONNEL TECHNICIAN LEAD P completed ICM Interrogation, Remote (Prof) Jordin Johansen MD INTERROGATION EVAL REMOTE </30 D CV MNTR SYS completed ICM Interrogation, Remote (Tech) Jordin Johansen MD INTERROGATION EVAL REMOTE </30 D TECH REVIEW completed EKG Jordin Johansen MD complete d SNOMED-CT: [id number] Current Medications Documented Jordin Johansen MD completed [...] REMOTE </30 D TECH REVIEW completed SNOMED-CT: [id number] Current Medications Documented Jordin Johansen MD completed SNOMED-CT: 132739721588682 Current Medications Documented Jordin Johansen MD completed EKG Jordin Johansen MD complete d SNOMED-CT: [id number] Current Medications Documented Jordin Johansen MD completed Mobile Cardiac Telemetry - Tech Jordin Johansen MD completed Mobile Cardiac Telemetry - Prof Jordin Johansen MD completed
--- NOTE | 2025-01-23 15:37 | ADMGEN ---
This patient, Oralia Carl, was admitted to 2 Medical Room 242-. Patient/family oriented to hospital policies and general routines including ID bracelet, bed and alarms, visiting hours, pain management, procedures, bathroom and other care routines, personal items, smoking policy, room service/diet, and visiting hours. Information on how to activate the Rapid Response Team has been discussed. Patient/Family are encouraged to report perceived risks to care and to ask questions if they do not understand what they are told or what they should do.
[2025-01-23] MEDS: SODIUM CHLORIDE 0.9% IV 1,000 ML 150 ML IV CONT (16:11)
[2025-01-23] MEDS: oxyCODONE/ACETAMINOPHEN (*CRX) 10-325 MG TABLET 1 TAB PO (17:03)
[2025-01-23 17:04] LABS: Lactic Acid Reflex 0.8 mmol/L (0.7-2.0)
[2025-01-23 21:41] LABS: Magnesium 2.1 mg/dL (1.6-2.3); Phosphorus 3.5 mg/dL (2.5-4.5); Potassium 3.4 mmol/L (3.4-5.0)
[2025-01-23] MEDS: LORATADINE 10 MG TABLET PO (23:04)
[2025-01-23] MEDS: HEPARIN SODIUM 5,000 UNITS/ML VIAL 5000 UNITS SUB-Q (23:04)
[2025-01-24] VITALS (9 sets, daily range): BP systolic 115–140; BP diastolic 50–76; PULSE 73–99; RESP 16–18; TEMP 36.3–37.7; O2SAT 94–100
[2025-01-24] MEDS: SODIUM CHLORIDE 0.9% IV 1,000 ML 999 ML IV CONT (04:19)
[2025-01-24] MEDS: SODIUM CHLORIDE 0.9% IV 1,000 ML 150 ML IV CONT ×2 (05:00→18:36)
[2025-01-24 05:47] LABS: Hematocrit 34.9 % (37.0-47.0); Hemoglobin 11.2 g/dL (12.0-15.0); Mean Corpuscular HGB Conc 32.1 g/dl (32-36); Mean Corpuscular Hemoglobin 28.9 pg (26-34); Mean Corpuscular Volume 89.9 fl (80-100); Mean Platelet Volume 12.8 fl (7.4-10.4); Platelet Count Result 151 k/mm3 (150-375); Red Blood Count 3.88 M/mm3 (4.2-5.4); White Blood Count 19.7 K/mm3 (4.5-10.0)
[2025-01-24 06:02] LABS: Alanine Aminotransferase 23 U/L (6-35); Albumin Level 2.5 g/dL (3.5-5.1); Alkaline Phosphatase 179 U/L (38-126); Anion Gap 11 mmol/L (4-12); Aspartate Amino Transferase 17 U/L (14-36); Bilirubin,Total 0.8 mg/dL (0.2-1.3); Blood Urea Nitrogen 54 mg/dL (7-17); Calcium 8.2 mg/dL (8.4-10.2); Carbon Dioxide 20 mmol/L (22-30); Chloride 108 mmol/L (98-107); Estimated CRCL calculation 10 ml/min; Estimated Glomerular Filt Rate 18; Glucose 80 mg/dL (65-110); Potassium 3.2 mmol/L (3.4-5.0); Sodium 139 mmol/L (137-145)
[2025-01-24 06:42] LABS: Band Neutrophils Percent 4 % (0-6); Lymphocytes Absolute Manual 0.78 K/mm3 (1.1-4.5); Lymphocytes Percent Manual 4 % (18-44); Monocytes Absolute Manual 0.59 K/mm3 (0.1-0.90); Monocytes Percent Manual 3 % (3-9); Neutrophils Absolute Manual 18.32 K/mm3 (1.7-7.2); Neutrophils Percent Manual 89 % (46-73)
[2025-01-24 06:44] LABS: Platelet Estimate Slightly Decreased (Adequate); Schistocytes None Seen
--- NOTE | 2025-01-24 08:35 | PM.IMPN ---
Progress Note: A&P Assessment and Plan (1) Failure to thrive: Status: Acute (2) LIANE (acute kidney injury): Code(s): N17.9 - Acute kidney failure, unspecified Status: Acute (3) Acute UTI: Code(s): N39.0 - Urinary tract infection, site not specified Status: Acute (4) Hypokalemia: Code(s): E87.6 - Hypokalemia Status: Acute (5) Hypotension: Code(s): I95.9 - Hypotension, unspecified Status: Acute (6) Leukocytosis: Code(s): D72.829 - Elevated white blood cell count, unspecified Status: Acute Plan There 85-year-old female who presents to the ED with generalized weakness for the past week. Patient had multiple deaths in the family in the last week and ever since then she has been declining not eating or drinking. Patient stated no appetite feels extremely weak. She is also constantly sleeping. On ED evaluation her blood pressure was borderline other vitals were stable. Laboratory evaluation showed WBC of 23.8 hemoglobin 12.2 platelet of 144 sodium 134 potassium 2.9. Creatinine 2.8. Alkaline phosphatase was elevated at 226 mildly elevated bilirubin at 1.5 AST ALT was normal. Urinalysis showed more than 100 WBC 4+ bacteria 3+ leukocyte esterase urine cautious 6-10. Chest x-ray with no acute abnormality. EKG showed normal sinus rhythm with nonspecific ST-T changes. Patient received fluid bolus potassium supplement and IV Rocephin was started. She has been pancultured with blood culture and urine culture. Since admission leukocytosis continues to improve. Her baseline creatinine around 1.2 back in 2022. Creatinine continues to decline to 2.4 continue IV hydration as ordered Failure to thrive Generalized weakness LIANE with creatinine of 2.8 on admission baseline creatinine 1.2 back from 2022. Hold diuretic and losartan. Non oliguric. Continue IV fluids. Will get renal ultrasound Bacteremia with Gram-negative bacilli increase ceftriaxone to 2 g daily UTI Hyperkalemia Hypertension Anxiety disorder on alprazolam p.r.n. Chronic back pain on oxycodone p.r.n. Leukocytosis normal lactate DVT prophylaxis heparin subQ Code status full code Subjective Date/time seen: 01/24/25 08:35 Interval history: feels weak but still a bit better. wants to eat. no sob, chest pain. Review of Systems Review of Systems: All systems reviewed & are unremarkable except as noted in HPI and below Exam Narrative: General: Cachectic ill-appearing, no acute distress HEENT: normocephalic, atraumatic. Mucous membranes moist. EOMI, PERRLA, bilateral sclera anicteric, no conjunctival injection. Neck supple without JVD, lymphadenopathy, or bruit. Respiratory: clear to auscultation bilaterally. No rales/rhonchi/wheezes. Cardiovascular: Regular rate and rhythm, normal S1-S2 upon auscultation. No murmurs, rubs, or clicks. Abdomen: Soft, round, no pulsatile masses, nondistended and nontender. Extremities: No cyanosis, clubbing, or edema present. Pulses are palpable 2/2. Neuro: Alert and orientated x 4. PERRLA. Cranial nerves 2-12 intact without focal deficit. Skin: Warm, dry, and intact, without rash, erythema, or lesion. Psych: pleasant, cooperative, normal speech, normal affect, no hallucinations, no dysarthia Objective Data Vital Signs Vital Signs: Vital Signs - 24 hr 01/23/25 12:08 01/23/25 12:15 01/23/25 12:16 Temperature Pulse Rate 76 81 90 Respiratory Rate 23 H 15 19 Blood Pressure 113/72 Pulse Oximetry 93 Oxygen Delivery 01/23/25 12:18 01/23/25 12:45 01/23/25 13:00 Temperature 97.7 F Pulse Rate 81 79 78 Respiratory Rate 20 19 30 H Blood Pressure 115/70 Pulse Oximetry 93 Oxygen Delivery Room Air 01/23/25 13:03 01/23/25 13:15 01/23/25 13:16 Temperature Pulse Rate 77 77 83 Respiratory Rate 19 28 H 25 H Blood Pressure 108/40 L 92/66 L Pulse Oximetry Oxygen Delivery 01/23/25 13:17 01/23/25 13:30 01/23/25 13:31 Temperature Pulse Rate 70 76 71 Respiratory Rate 24 H 22 H 19 Blood Pressure 98/51 L Pulse Oximetry 99 Oxygen Delivery 01/23/25 13:45 01/23/25 13:46 01/23/25 14:00 Temperature Pulse Rate 76 77 77 Respiratory Rate 17 20 16 Blood Pressure 111/44 L Pulse Oximetry Oxygen Delivery 01/23/25 14:01 01/23/25 14:15 01/23/25 14:16 Temperature Pulse Rate 78 78 74 Respiratory Rate 25 H 22 H 19 Blood Pressure 110/50 L Pulse Oximetry Oxygen Delivery 01/23/25 14:17 01/23/25 14:30 01/23/25 14:31 Temperature Pulse Rate 76 74 74 Respiratory Rate 17 18 18 Blood Pressure 99/55 L 108/51 L Pulse Oximetry Oxygen Delivery 01/23/25 16:00 01/23/25 16:00 01/23/25 19:54 Temperature 97.2 F L 98.1 F Pulse Rate 78 72 91 Respiratory Rate 18 18 Blood Pressure 135/56 L 129/50 L Pulse Oximetry 94 92 Oxygen Delivery 01/23/25 20:00 01/23/25 20:00 01/24/25 00:00 Temperature 98.5 F Pulse Rate 91 87 86 Respiratory Rate 18 18 Blood Pressure 124/63 Pulse Oximetry 92 94 Oxygen Delivery Room Air 01/24/25 00:00 01/24/25 04:45 01/24/25 08:00 Temperature 100 F H 97.8 F Pulse Rate 95 86 81 Respiratory Rate 16 18 Blood Pressure 129/69 137/54 L Pulse Oximetry 99 97 Oxygen Delivery Intake/Output Intake/Output: Intake & Output 01/21/25 01/22/25 01/23/25 01/24/25 23:59 23:59 23:59 23:59 Intake Total 2520 0 Output Total 650 Balance 2520 -650 Meds/Results Medications: Active Medications Generic Name Dose Route Start Last Admin Trade Name Freq PRN Reason Stop Dose Admin Acetaminophen 650 mg 01/23/25 14:13 Acetaminophen 325 Mg Tablet PO Q4H PRN Mild Pain (1-3) or Fever Acetaminophen 650 mg 01/24/25 05:46 Acetaminophen 650 Mg Suppository RECTAL Q6H PRN Mild Pain (1-3) or Fever Alprazolam 0.5 mg 01/23/25 16:13 Alprazolam (*Crx) 0.5 Mg Tablet PO BID PRN anxiety Gabapentin 100 mg 01/23/25 17:00 01/23/25 16:54 Gabapentin 100 Mg Capsule PO Not Given BID NIHARIKA Heparin Sodium (Porcine) 5,000 units 01/23/25 21:00 01/23/25 23:04 Heparin Sodium 5,000 Units/Ml Vial SUB-Q 5,000 units Q12HR NIHARIKA Administration Ceftriaxone Sodium 1 gm in 50 mls @ 100 mls/hr 01/24/25 12:00 Rocephin 1 Gm/Ns 50 Ml IVPB Q24H NIHARIKA Sodium Chloride 1,000 mls @ 150 mls/hr 01/23/25 14:15 01/24/25 05:00 Normal Saline Iv IV CONT 150 mls/hr .Q6H40M NIHARIKA Administration Loratadine/Pseudoephedrine Sulfate 1 tab 01/24/25 09:00 Loratadine/Pseudoephedrine (*Crx) 10/240 Mg Tablet Er 24 Hr PO QAM NIHARIKA Ondansetron HCl 4 mg 01/23/25 14:04 Ondansetron Inj 4 Mg/2 Ml Vial IV PUSH Q4H PRN Nausea Oxycodone/Acetaminophen 1 tab 01/23/25 16:13 01/23/25 17:03 Oxycodone/Acetaminophen (*Crx) 10-325 Mg Tablet PO 1 tab TID PRN Administration back pain Radiology Results: ITS Impressions Chest X-Ray 01/23/25 12:45 Impression: No acute abnormality. Labs Labs: Laboratory Results - last 24 hr 01/23/25 01/23/25 01/23/25 12:15 13:02 16:47 WBC 23.8 H RBC 4.27 Hgb 12.2 Hct 37.8 MCV 88.5 MCH 28.6 MCHC 32.3 RDW 14.6 H Plt Count 144 L D MPV 13.8 H Immature Gran % (Auto) Not Reportable Neut % (Auto) Not Reportable Lymph % (Auto) Not Reportable [place] % (Auto) Not Reportable Eos % (Auto) Not Reportable Baso % (Auto) Not Reportable Lymph # (Auto) Not Reportable [place] # (Auto) Not Reportable Eos # (Auto) Not Reportable Baso # (Auto) Not Reportable Abs Immat Gran (auto) Not Reportable Absolute Neuts (auto) Not Reportable Absolute Nucleated RBC Not Reportable Total Counted 100 Neutrophils % (Manual) 87 H Band Neutrophils % 4 Lymphocytes % (Manual) 5 L Monocytes % (Manual) 4 Nucleated RBC % Not Reportable Abs Neuts (Manual) 21.65 H Abs Lymphs (Manual) 1.19 Abs Monocytes (Manual) 0.95 H Platelet Estimate Slightly decreased % Immature Plt Fraction 15.8 H Anisocytosis 1+ Ovalocytes 1+ [place] Cells 1+ Schistocytes Rare Sodium 134 L Potassium 2.9 L Chloride 93 L Carbon Dioxide 30 Anion Gap 11 BUN 66 H D Creatinine 2.80 H Estim Creat Clear Calc Not Reportable Estimated GFR 16 L Glucose 92 Lactic Acid 0.8 Calcium 9.5 Phosphorus Magnesium Total Bilirubin 1.5 H AST 27 ALT 33 Alkaline Phosphatase 226 H Total Protein 6.0 L Albumin 3.2 L Urine Color Yellow Urine Appearance Cloudy H Urine pH 5.5 Ur Specific [place] 1.009 Urine Protein 1+ H Urine Glucose (UA) Negative Urine Ketones Negative Ur Blood (Man) 3+ H Urine Nitrate Negative Urine Bilirubin Negative Urine Urobilinogen 0.2 Add Ur Microanalysis Reviewed Leukocyte Esterase Rfl 3+ H Urine RBC 0-2 Urine WBC >100 H Ur Squamous Epith Cells None seen Urine Bacteria 4+ H Urine Casts 6-10 01/23/25 01/24/25 21:07 05:38 WBC 19.7 H RBC 3.88 L Hgb 11.2 L Hct 34.9 L MCV 89.9 MCH 28.9 MCHC 32.1 RDW 15.0 H Plt Count 151 MPV 12.8 H Immature Gran % (Auto) Not Reportable Neut % (Auto) Not Reportable Lymph % (Auto) Not Reportable [place] % (Auto) Not Reportable Eos % (Auto) Not Reportable Baso % (Auto) Not Reportable Lymph # (Auto) Not Reportable [place] # (Auto) Not Reportable Eos # (Auto) Not Reportable Baso # (Auto) Not Reportable Abs Immat Gran (auto) Not Reportable Absolute Neuts (auto) Not Reportable Absolute Nucleated RBC Not Reportable Total Counted Neutrophils % (Manual) 89 H Band Neutrophils % 4 Lymphocytes % (Manual) 4 L Monocytes % (Manual) 3 Nucleated RBC % Not Reportable Abs Neuts (Manual) 18.32 H Abs Lymphs (Manual) 0.78 L Abs Monocytes (Manual) 0.59 Platelet Estimate Slightly decreased % Immature Plt Fraction Anisocytosis Ovalocytes [place] Cells Schistocytes None seen Sodium 139 Potassium 3.4 3.2 L Chloride 108 H Carbon Dioxide 20 L Anion Gap 11 BUN 54 H D Creatinine 2.48 H Estim Creat Clear Calc 10 Estimated GFR 18 L Glucose 80 Lactic Acid Calcium 8.2 L Phosphorus 3.5 Magnesium 2.1 Total Bilirubin 0.8 AST 17 ALT 23 Alkaline Phosphatase 179 H Total Protein 5.0 L Albumin 2.5 L Urine Color Urine Appearance Urine pH Ur Specific [place] Urine Protein Urine Glucose (UA) Urine Ketones Ur Blood (Man) Urine Nitrate Urine Bilirubin Urine Urobilinogen Add Ur Microanalysis Leukocyte Esterase Rfl Urine RBC Urine WBC Ur Squamous Epith Cells Urine Bacteria Urine Casts
[2025-01-24] MEDS: GABAPENTIN 100 MG CAPSULE PO ×2 (09:11→17:28)
[2025-01-24] MEDS: oxyCODONE/ACETAMINOPHEN (*CRX) 10-325 MG TABLET 1 TAB PO (09:11)
[2025-01-24] MEDS: LORATADINE/PSEUDOEPHEDRINE (*CRX) 10/240 MG TABLET ER 24 HR 1 TAB PO (09:11)
[2025-01-24] MEDS: HEPARIN SODIUM 5,000 UNITS/ML VIAL 5000 UNITS SUB-Q ×2 (09:15→20:47)
[2025-01-24] MEDS: POTASSIUM CHLORIDE 20 MEQ ER TABLET PO (09:15)
[2025-01-24] MEDS: cefTRIAXone 2 GM/NS 100 ML 2 GM/100 ML BAG IVPB (09:35)
--- NOTE | 2025-01-24 10:44 | PM.CNNEP ---
Assessment and Plan Assessment and plan (1) LIANE (acute kidney injury): Code(s): N17.9 - Acute kidney failure, unspecified Status: Acute Assessment and Plan: the patient has acute kidney injury. Her creatinine in December of 2022 was normal. The patient looks dehydrated to me on exam. She has not been eating well or drinking and she has continued to take her diuretics. Patient also has a bladder infection which can affect kidney function as well. Rhabdomyolysis can do this as well. We can check a CK Other causes include obstruction, glomerulonephritis, and interstitial nephritis which would be less likely. will check urine electrolytes, renal ultrasound, and a CPK. I agree with continued IV fluids and antibiotics. We await cultures. (2) Acute UTI: Code(s): N39.0 - Urinary tract infection, site not specified Status: Acute Assessment and Plan: The patient has pyuria. She does have some frequency but this is not unusual for her and so is fairly asymptomatic from this. (3) Failure to thrive: Status: Acute Assessment and Plan: The patient has a difficult situation where she has not had optimal nutrition. (4) Hypokalemia: Code(s): E87.6 - Hypokalemia Status: Acute Assessment and Plan: Potassium is low. she had a potassium supplement today (5) Hypotension: Code(s): I95.9 - Hypotension, unspecified Status: Acute Assessment and Plan: blood pressure was low on admission. This is better with fluid (6) Leukocytosis: Code(s): D72.829 - Elevated white blood cell count, unspecified Status: Acute Assessment and Plan: probably from her bladder infection. Blood cultures are also pending. 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 She has been eating soft foods ever since then because she cannot swallow anything harder than mashed potatoes. Apparently over the last week the patient has not been eating or drinking very well. Her daughter was living with her for this week but had to go back to her home out of town recently. The patient is on diuretics and continue to take these in spite of not eating very well. Because of this decline in health she came to the ER. Here she was evaluated and found to be a little bit dehydrated but also to have a bladder infection. She was admitted, given IV fluids, and antibiotics. The renal function is abnormal so renal consultation was requested. She has not been taking any nonsteroidal anti-inflammatory agents. She does not have any bloody urine foamy urine kidney stones or bladder infections. She does have frequent urination but this is not new. She has not had any recent infections that she knows of. She has not been on antibiotics. She has not had any changes in medications lately. She does not smoke or drink Review of Systems Constitutional: Constitutional: Reports no additional constitutional complaints Eyes: Eyes: Reports no additional eye complaints ENT: Reports system reviewed and no additional complaints, except as documented Cardiovascular: Cardiovascular: Reports no additional cardiovascular complaints Respiratory: Respiratory: Reports no additional respiratory complaints Gastrointestinal: Gastrointestinal: Reports no additional gastrointestinal complaints Genitourinary: Genitourinary: Reports no additional female genitourinary complaints Musculoskeletal: Musculoskeletal: Reports no additional musculoskeletal complaints Integumentary/Breasts: Skin/Breast: Reports system reviewed and no additional complaints, except as docu Neurologic: Reports system reviewed and no additional complaints, except as documented Psychiatric: Psychiatric: Reports no additional psychiatric complaints Endocrine: Endocrine: Reports no additional endocrine complaints [facility] Social History Social History Smoking status: Former smoker Smoking end date: 11/05/20 Do You Feel Safe in your Home?: No Lack of Transportation: YES Lack of Food: Never True Current Housing: I Have Housing Concerned About Future Housing: YES Difficulty Paying Gas/Electric Bills: YES Difficulty Paying for Meds: YES Currently Unemployed: No Education: Decline to Answer Difficulty w/ Childcare or Family Care: No Spiritual care concerns: No Meds Home Medications and Allergies Home Medications ?Medication ?Instructions ?Recorded ?Confirmed ?Type alprazolam 0.5 mg tablet 0.5 mg PO BID PRN anxiety 01/23/25 01/23/25 History furosemide 20 mg tablet 20 mg PO DAILY 01/23/25 01/23/25 History gabapentin 100 mg capsule 100 mg PO BID 01/23/25 01/23/25 History losartan 25 mg tablet 25 mg PO DAILY 01/23/25 01/23/25 History oxycodone-acetaminophen 10 mg-325 1 tablet PO TID PRN back pain 01/23/25 01/23/25 History mg tablet Allergies Allergy/AdvReac Type Severity Reaction Status Date / Time ciprofloxacin Allergy Unknown Unknown Verified 01/23/25 13:19 NONSTEROIDAL AdvReac Mild VOMITING Uncoded 01/23/25 13:19 Vital Signs Vital Signs - 24 hr 01/23/25 12:08 01/23/25 12:15 01/23/25 12:16 Temperature Pulse Rate 76 81 90 Respiratory Rate 23 H 15 19 Blood Pressure 113/72 Pulse Oximetry 93 Oxygen Delivery 01/23/25 12:18 01/23/25 12:45 01/23/25 13:00 Temperature 97.7 F Pulse Rate 81 79 78 Respiratory Rate 20 19 30 H Blood Pressure 115/70 Pulse Oximetry 93 Oxygen Delivery Room Air 01/23/25 13:03 01/23/25 13:15 01/23/25 13:16 Temperature Pulse Rate 77 77 83 Respiratory Rate 19 28 H 25 H Blood Pressure 108/40 L 92/66 L Pulse Oximetry Oxygen Delivery 01/23/25 13:17 01/23/25 13:30 01/23/25 13:31 Temperature Pulse Rate 70 76 71 Respiratory Rate 24 H 22 H 19 Blood Pressure 98/51 L Pulse Oximetry 99 Oxygen Delivery 01/23/25 13:45 01/23/25 13:46 01/23/25 14:00 Temperature Pulse Rate 76 77 77 Respiratory Rate 17 20 16 Blood Pressure 111/44 L Pulse Oximetry Oxygen Delivery 01/23/25 14:01 01/23/25 14:15 01/23/25 14:16 Temperature Pulse Rate 78 78 74 Respiratory Rate 25 H 22 H 19 Blood Pressure 110/50 L Pulse Oximetry Oxygen Delivery 01/23/25 14:17 01/23/25 14:30 01/23/25 14:31 Temperature Pulse Rate 76 74 74 Respiratory Rate 17 18 18 Blood Pressure 99/55 L 108/51 L Pulse Oximetry Oxygen Delivery 01/23/25 16:00 01/23/25 16:00 01/23/25 19:54 Temperature 97.2 F L 98.1 F Pulse Rate 78 72 91 Respiratory Rate 18 18 Blood Pressure 135/56 L 129/50 L Pulse Oximetry 94 92 Oxygen Delivery 01/23/25 20:00 01/23/25 20:00 01/24/25 00:00 Temperature 98.5 F Pulse Rate 91 87 86 Respiratory Rate 18 18 Blood Pressure 124/63 Pulse Oximetry 92 94 Oxygen Delivery Room Air 01/24/25 00:00 01/24/25 04:45 01/24/25 08:00 Temperature 100 F H 97.8 F Pulse Rate 95 86 81 Respiratory Rate 16 18 Blood Pressure 129/69 137/54 L Pulse Oximetry 99 97 Oxygen Delivery Exam Narrative: Exam Narrative: Well developed well-nourished but thin female in no acute distress Skin is warm and dry without rash Head normocephalic atraumatic Eyes normal sclerae and conjunctivae Mouth normal lips teeth and gums except mucus membranes are dry Neck no nodes no thyromegaly no carotid bruits Axillae no nodes Back no CVA tenderness Lungs symmetric and clear to auscultation and percussion Heart regular rate and rhythm without rub or gallop Abdomen bowel sounds positive soft nontender, no HSM, masses, or bruits. Extremities no cyanosis, clubbing, or edema Pulses 2+ equal in radial arteries Psychological not anxious or depressed Neuro alert and oriented x3 motor 5/5 cranial nerves 2-12 intact reflexes 2+ and equal in the biceps and patellar tendons cerebellar normal rapid alternating movements Results Lab Results 01/24/25 05:38 01/24/25 05:38 Lab results: Most recent lab results Calcium 8.2 mg/dL (8.4-10.2) L 01/24/25 05:38 Phosphorus 3.5 mg/dL (2.5-4.5) 01/23/25 21:07 Magnesium 2.1 mg/dL (1.6-2.3) 01/23/25 21:07
[2025-01-24 11:16] LABS: Creatine Kinase 36 U/L (30-135)
--- NOTE | 2025-01-24 12:55 | PCSTNOTE ---
Please refer to the Bedside Swallow Evaluation in the EMR. Please note, silent aspiration cannot be ruled out at bedside.
[2025-01-24 14:58] LABS: Total Protein Urine Random 56 mg/dL
[2025-01-24 14:59] LABS: Urea Random Urine 360 MG/DL
[2025-01-24 15:02] LABS: Creatinine Urine 40.8 mg/dL; Ur Ttl Prot Creatinine Ratio 1.37 mg/mg (0-0.20)
[2025-01-24 15:05] LABS: Sodium Urine Random 59 meq/L
[2025-01-25] VITALS (9 sets, daily range): BP systolic 101–142; BP diastolic 40–77; PULSE 69–100; RESP 16–18; TEMP 36.1–37.2; O2SAT 94–100
[2025-01-25 06:13] LABS: Alanine Aminotransferase 20 U/L (6-35); Albumin Level 2.4 g/dL (3.5-5.1); Alkaline Phosphatase 155 U/L (38-126); Anion Gap 10 mmol/L (4-12); Aspartate Amino Transferase 16 U/L (14-36); Bilirubin,Total 0.6 mg/dL (0.2-1.3); Blood Urea Nitrogen 51 mg/dL (7-17); Calcium 7.8 mg/dL (8.4-10.2); Carbon Dioxide 20 mmol/L (22-30); Chloride 108 mmol/L (98-107); Estimated CRCL calculation 12 ml/min; Estimated Glomerular Filt Rate 23; Glucose 138 mg/dL (65-110); Magnesium 1.9 mg/dL (1.6-2.3); Phosphorus 2.4 mg/dL (2.5-4.5); Potassium 3.4 mmol/L (3.4-5.0); Sodium 138 mmol/L (137-145)
[2025-01-25 07:55] LABS: Basophils Absolute Auto 0.1 K/mm3 (0.0-0.1); Basophils Percent Auto 0.3 % (0.2-1.2); Eosinophils Absolute Auto 0.1 K/mm3 (0-0.3); Eosinophils Percent Auto 0.4 % (0-4.4); Hematocrit 30.8 % (37.0-47.0); Hemoglobin 9.7 g/dL (12.0-15.0); Immature Granulocyte Absolute 0.61 K/mm3 (0.00-0.031); Immature Granulocyte Percent A 3.3 % (0-0.5); Immature Platelet Fraction Pct 9.9 % (0.9-11.2); Lymphocytes Absolute Auto 1.41 K/mm3 (0.9-3.2); Lymphocytes Percent Auto 7.6 % (18.3-44.2); Mean Corpuscular HGB Conc 31.5 g/dl (32-36); Mean Corpuscular Hemoglobin 28.4 pg (26-34); Mean Corpuscular Volume 90.1 fl (80-100); Mean Platelet Volume 12.9 fl (7.4-10.4); Monocytes Absolute Auto 1.2 K/mm3 (0.1-0.6); Monocytes Percent Auto 6.2 % (2.6-8.5); Neutrophils Absolute Auto 15.4 K/mm3 (1.3-6.7); Neutrophils Percent Auto 82.2 % (45.5-73.1); Platelet Count Result 151 k/mm3 (150-375); Red Blood Count 3.42 M/mm3 (4.2-5.4); Red Cell Distribution Width 15.2 % (11.5-14.5); White Blood Count 18.7 K/mm3 (4.5-10.0)
[2025-01-25] MEDS: cefTRIAXone 2 GM/NS 100 ML 2 GM/100 ML BAG IVPB (08:54)
[2025-01-25] MEDS: HEPARIN SODIUM 5,000 UNITS/ML VIAL 5000 UNITS SUB-Q ×2 (08:55→21:44)
[2025-01-25] MEDS: GABAPENTIN 100 MG CAPSULE PO ×2 (08:55→17:21)
[2025-01-25] MEDS: LORATADINE/PSEUDOEPHEDRINE (*CRX) 10/240 MG TABLET ER 24 HR 1 TAB PO (08:55)
[2025-01-25] MEDS: oxyCODONE/ACETAMINOPHEN (*CRX) 10-325 MG TABLET 1 TAB PO (09:07)
[2025-01-25] MEDS: POTASSIUM PHOS/SODIUM PHOS 250 MG TABLET PO (10:10)
--- NOTE | 2025-01-25 11:35 | PM.PNNEP ---
Progress Note: A&P Assessment and Plan (1) LIANE (acute kidney injury): Code(s): N17.9 - Acute kidney failure, unspecified Status: Acute Assessment and Plan: the patient has acute kidney injury. Her creatinine in December of 2022 was normal. The patient looks dehydrated to me on exam. She has not been eating well or drinking and she has continued to take her diuretics. Patient also has urosepsis which can affect kidney function as well. Patient is getting IV fluids a day. This is going at 150 per hour. Will reduce this to 75. The patient is getting antibiotics as well to cover the urosepsis. Patient has water brash. This is probably related to corkscrew esophagus. Will start a PPI (2) Acute UTI: Code(s): N39.0 - Urinary tract infection, site not specified Status: Acute Assessment and Plan: The patient has pyuria. Getting antibiotics (3) Failure to thrive: Status: Acute Assessment and Plan: The patient has a difficult situation where she has not had optimal nutrition. (4) Hypokalemia: Code(s): E87.6 - Hypokalemia Status: Acute Assessment and Plan: Potassium is better today (5) Hypotension: Code(s): I95.9 - Hypotension, unspecified Status: Acute Assessment and Plan: Systolic blood pressure has improved. It is running between 110 and 142 (6) Leukocytosis: Code(s): D72.829 - Elevated white blood cell count, unspecified Status: Acute Assessment and Plan: Patient has E coli in both the blood and the urine Subjective Date/time seen: 01/25/25 11:35 Interval history: Patient has water brash. No actual nausea. Breathing okay Review of Systems Cardiovascular: Cardiovascular: Reports no additional cardiovascular complaints Respiratory: Respiratory: Reports no additional respiratory complaints Gastrointestinal: Gastrointestinal: Reports no additional gastrointestinal complaints Genitourinary: Genitourinary: Reports no additional female genitourinary complaints Exam Narrative: WDWN in NAD skin no rash head ncat lungs clear cor reg no rub abd BS+ nontender and soft ext no edema. Objective Data Vital Signs Vital Signs: Vital Signs - 24 hr 01/24/25 12:00 01/24/25 12:00 01/24/25 16:00 Temperature 97.5 F L Pulse Rate 73 73 74 Respiratory Rate 18 Blood Pressure 127/50 L Pulse Oximetry 98 Oxygen Delivery 01/24/25 16:00 01/24/25 20:00 01/24/25 20:00 Temperature 97.4 F L Pulse Rate 99 86 Respiratory Rate 18 Blood Pressure 140/55 L Pulse Oximetry Oxygen Delivery Room Air 01/24/25 20:46 01/25/25 00:00 01/25/25 01:00 Temperature 97.9 F 97.6 F Pulse Rate 91 85 87 Respiratory Rate 16 16 Blood Pressure 115/76 116/55 L Pulse Oximetry 100 94 Oxygen Delivery 01/25/25 04:00 01/25/25 05:21 01/25/25 08:00 Temperature 98.7 F 98.9 F Pulse Rate 78 80 86 Respiratory Rate 16 18 Blood Pressure 115/58 L 142/61 H Pulse Oximetry 98 99 Oxygen Delivery 01/25/25 08:00 01/25/25 08:00 Temperature Pulse Rate 100 Respiratory Rate Blood Pressure Pulse Oximetry Oxygen Delivery Room Air Intake/Output Intake/Output: Intake & Output 01/22/25 01/23/25 01/24/25 01/25/25 23:59 23:59 23:59 23:59 Intake Total 2520 1460 450 Output Total 650 Balance 2520 810 450 Meds/Results Medications: Active Medications Generic Name Dose Route Start Last Admin Trade Name Freq PRN Reason Stop Dose Admin Acetaminophen 650 mg 01/23/25 14:13 Acetaminophen 325 Mg Tablet PO Q4H PRN Mild Pain (1-3) or Fever Acetaminophen 650 mg 01/24/25 05:46 Acetaminophen 650 Mg Suppository RECTAL Q6H PRN Mild Pain (1-3) or Fever Alprazolam 0.5 mg 01/23/25 16:13 Alprazolam (*Crx) 0.5 Mg Tablet PO BID PRN anxiety Gabapentin 100 mg 01/23/25 17:00 01/25/25 08:55 Gabapentin 100 Mg Capsule PO 100 mg BID NIHARIKA Administration Heparin Sodium (Porcine) 5,000 units 01/23/25 21:00 01/25/25 08:55 Heparin Sodium 5,000 Units/Ml Vial SUB-Q 5,000 units Q12HR NIHARIKA Administration Sodium Chloride 1,000 mls @ 150 mls/hr 01/23/25 14:15 01/24/25 18:36 Normal Saline Iv IV CONT 150 mls/hr .Q6H40M NIHARIKA Administration Ceftriaxone Sodium 2 gm in 100 mls @ 200 mls/hr 01/24/25 09:00 01/25/25 08:54 Rocephin 2 Gm/Ns 100 Ml IVPB 200 mls/hr Q24H NIHARIKA Administration Loratadine/Pseudoephedrine Sulfate 1 tab 01/24/25 09:00 01/25/25 08:55 Loratadine/Pseudoephedrine (*Crx) 10/240 Mg Tablet Er 24 Hr PO 1 tab QAM NIHARIKA Administration Ondansetron HCl 4 mg 01/23/25 14:04 Ondansetron Inj 4 Mg/2 Ml Vial IV PUSH Q4H PRN Nausea Oxycodone/Acetaminophen 1 tab 01/23/25 16:13 01/25/25 09:07 Oxycodone/Acetaminophen (*Crx) 10-325 Mg Tablet PO 1 tab TID PRN Administration back pain Radiology Results: ITS Impressions Chest X-Ray 01/23/25 12:45 Impression: No acute abnormality. Renal Ultrasound 01/24/25 11:28 Impression: 1: Unremarkable renal ultrasound. No stones, masses or hydronephrosis. 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 Labs Labs: Laboratory Results - last 24 hr 01/24/25 01/25/25 01/25/25 14:26 05:30 07:32 WBC 18.7 H RBC 3.42 L Hgb 9.7 L Hct 30.8 L MCV 90.1 MCH 28.4 MCHC 31.5 L RDW 15.2 H Plt Count 151 MPV 12.9 H Immature Gran % (Auto) 3.3 H Neut % (Auto) 82.2 H Lymph % (Auto) 7.6 L [place] % (Auto) 6.2 Eos % (Auto) 0.4 Baso % (Auto) 0.3 Lymph # (Auto) 1.41 [place] # (Auto) 1.2 H Eos # (Auto) 0.1 Baso # (Auto) 0.1 Abs Immat Gran (auto) 0.61 H Absolute Neuts (auto) 15.4 H Absolute Nucleated RBC 0.000 Nucleated RBC % 0.0 % Immature Plt Fraction 9.9 Sodium 138 Potassium 3.4 Chloride 108 H Carbon Dioxide 20 L Anion Gap 10 BUN 51 H Creatinine 2.04 H Estim Creat Clear Calc 12 Estimated GFR 23 L Glucose 138 H Calcium 7.8 L Phosphorus 2.4 L Magnesium 1.9 Total Bilirubin 0.6 AST 16 ALT 20 Alkaline Phosphatase 155 H Total Protein 5.0 L Albumin 2.4 L U Random Total Protein 56 Ur Random Sodium 59 Ur Random Urea 360 Urine Creatinine 40.8 Protein/Creat Ratio 2 1.37 H
[2025-01-25] MEDS: PANTOPRAZOLE 40 MG TABLET PO (12:41)
--- NOTE | 2025-01-25 13:02 | P.PNIM_ITS ---
Progress Note: A&P Assessment and Plan (1) Failure to thrive: Status: Acute (2) LIANE (acute kidney injury): Code(s): N17.9 - Acute kidney failure, unspecified Status: Acute (3) Acute UTI: Code(s): N39.0 - Urinary tract infection, site not specified Status: Acute (4) Hypokalemia: Code(s): E87.6 - Hypokalemia Status: Acute (5) Hypotension: Code(s): I95.9 - Hypotension, unspecified Status: Acute (6) Leukocytosis: Code(s): D72.829 - Elevated white blood cell count, unspecified Status: Acute Plan There 85-year-old female who presents to the ED with generalized weakness for the past week. Patient had multiple deaths in the family in the last week and ever since then she has been declining not eating or drinking. Patient stated no appetite feels extremely weak. She is also constantly sleeping. On ED evaluation her blood pressure was borderline other vitals were stable. Laboratory evaluation showed WBC of 23.8 hemoglobin 12.2 platelet of 144 sodium 134 potassium 2.9. Creatinine 2.8. Alkaline phosphatase was elevated at 226 mildly elevated bilirubin at 1.5 AST ALT was normal. Urinalysis showed more than 100 WBC 4+ bacteria 3+ leukocyte esterase urine cautious 6-10. Chest x-ray with no acute abnormality. EKG showed normal sinus rhythm with nonspecific ST-T changes. Patient received fluid bolus potassium supplement and IV Rocephin was started. She has been pancultured with blood culture and urine culture. Since admission leukocytosis continues to improve. Her baseline creatinine around 1.2 back in 2022. Creatinine continues to decline. Continue IV hydration as ordered. Failure to thrive Generalized weakness LIANE with creatinine of 2.8 on admission baseline creatinine 1.2 back from 2022. Hold diuretic and losartan. Non oliguric. Continue IV fluids. Renal ultrasound without hydronephrosis. Urinary hesitancy possible cystocele. CT abdomen without any other anatomic abnormality. She will likely need evaluation for this as an outpatient basis with urology/gynecology Bacteremia with Gram-negative bacilli increase ceftriaxone to 2 g daily identified as E coli. Sensitivity pending UTI save up urine culture growing E coli Regurgitation of food on often chronic problem. Will get esophagogram to further evaluate. 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 Chronic back pain on oxycodone p.r.n. Leukocytosis normal lactate DVT prophylaxis heparin subQ Code status full code Subjective Date/time seen: 01/25/25 13:02 Interval history: No overnight events. No new complaints. Labs reviewed. Discussed with family having some swallowing problem. Some urinary complaints as well where seen is to push the bladder to be able to pee Review of Systems Review of Systems: All systems reviewed & are unremarkable except as noted in HPI and below Exam Narrative: General: Cachectic ill-appearing, no acute distress HEENT: normocephalic, atraumatic. Mucous membranes moist. EOMI, PERRLA, bilateral sclera anicteric, no conjunctival injection. Neck supple without JVD, lymphadenopathy, or bruit. Respiratory: clear to auscultation bilaterally. No rales/rhonchi/wheezes. Cardiovascular: Regular rate and rhythm, normal S1-S2 upon auscultation. No murmurs, rubs, or clicks. Abdomen: Soft, round, no pulsatile masses, nondistended and nontender. Extremities: No cyanosis, clubbing, or edema present. Pulses are palpable 2/2. Neuro: Alert and orientated x 4. PERRLA. Cranial nerves 2-12 intact without focal deficit. Skin: Warm, dry, and intact, without rash, erythema, or lesion. Psych: pleasant, cooperative, normal speech, normal affect, no hallucinations, no dysarthia Objective Data Vital Signs Vital Signs: Vital Signs - 24 hr 01/24/25 16:00 01/24/25 16:00 01/24/25 20:00 Temperature 97.4 F L Pulse Rate 74 99 Respiratory Rate 18 Blood Pressure 140/55 L Pulse Oximetry Oxygen Delivery Room Air 01/24/25 20:00 01/24/25 20:46 01/25/25 00:00 Temperature 97.9 F Pulse Rate 86 91 85 Respiratory Rate 16 Blood Pressure 115/76 Pulse Oximetry 100 Oxygen Delivery 01/25/25 01:00 01/25/25 04:00 01/25/25 05:21 Temperature 97.6 F 98.7 F Pulse Rate 87 78 80 Respiratory Rate 16 16 Blood Pressure 116/55 L 115/58 L Pulse Oximetry 94 98 Oxygen Delivery 01/25/25 08:00 01/25/25 08:00 01/25/25 08:00 Temperature 98.9 F Pulse Rate 86 100 Respiratory Rate 18 Blood Pressure 142/61 H Pulse Oximetry 99 Oxygen Delivery Room Air 01/25/25 12:00 Temperature 98.0 F Pulse Rate 70 Respiratory Rate 16 Blood Pressure 107/40 L Pulse Oximetry 70 L Oxygen Delivery Intake/Output Intake/Output: Intake & Output 01/22/25 01/23/25 01/24/25 01/25/25 23:59 23:59 23:59 23:59 Intake Total 2520 1460 450 Output Total 650 Balance 2520 810 450 Meds/Results Medications: Active Medications Generic Name Dose Route Start Last Admin Trade Name Freq PRN Reason Stop Dose Admin Acetaminophen 650 mg 01/23/25 14:13 Acetaminophen 325 Mg Tablet PO Q4H PRN Mild Pain (1-3) or Fever Acetaminophen 650 mg 01/24/25 05:46 Acetaminophen 650 Mg Suppository RECTAL Q6H PRN Mild Pain (1-3) or Fever Alprazolam 0.5 mg 01/23/25 16:13 Alprazolam (*Crx) 0.5 Mg Tablet PO BID PRN anxiety Gabapentin 100 mg 01/23/25 17:00 01/25/25 08:55 Gabapentin 100 Mg Capsule PO 100 mg BID NIHARIKA Administration Heparin Sodium (Porcine) 5,000 units 01/23/25 21:00 01/25/25 08:55 Heparin Sodium 5,000 Units/Ml Vial SUB-Q 5,000 units Q12HR NIHARIKA Administration Sodium Chloride 1,000 mls @ 75 mls/hr 01/23/25 14:15 01/24/25 18:36 Normal Saline Iv IV CONT 150 mls/hr .[id number] NIHARIKA Administration Ceftriaxone Sodium 2 gm in 100 mls @ 200 mls/hr 01/24/25 09:00 01/25/25 08:54 Rocephin 2 Gm/Ns 100 Ml IVPB 200 mls/hr Q24H NIHARIKA Administration Loratadine/Pseudoephedrine Sulfate 1 tab 01/24/25 09:00 01/25/25 08:55 Loratadine/Pseudoephedrine (*Crx) 10/240 Mg Tablet Er 24 Hr PO 1 tab QAM NIHARIKA Administration Ondansetron HCl 4 mg 01/23/25 14:04 Ondansetron Inj 4 Mg/2 Ml Vial IV PUSH Q4H PRN Nausea Oxycodone/Acetaminophen 1 tab 01/23/25 16:13 01/25/25 09:07 Oxycodone/Acetaminophen (*Crx) 10-325 Mg Tablet PO 1 tab TID PRN Administration back pain Pantoprazole Sodium 40 mg 01/25/25 11:40 01/25/25 12:41 Pantoprazole 40 Mg Tablet PO 40 mg QAM NIHARIKA Administration Radiology Results: ITS Impressions Chest X-Ray 01/23/25 12:45 Impression: No acute abnormality. Renal Ultrasound 01/24/25 11:28 Impression: 1: Unremarkable renal ultrasound. No stones, masses or hydronephrosis. 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 Labs Labs: Laboratory Results - last 24 hr 01/24/25 01/25/25 01/25/25 14:26 05:30 07:32 WBC 18.7 H RBC 3.42 L Hgb 9.7 L Hct 30.8 L MCV 90.1 MCH 28.4 MCHC 31.5 L RDW 15.2 H Plt Count 151 MPV 12.9 H Immature Gran % (Auto) 3.3 H Neut % (Auto) 82.2 H Lymph % (Auto) 7.6 L [place] % (Auto) 6.2 Eos % (Auto) 0.4 Baso % (Auto) 0.3 Lymph # (Auto) 1.41 [place] # (Auto) 1.2 H Eos # (Auto) 0.1 Baso # (Auto) 0.1 Abs Immat Gran (auto) 0.61 H Absolute Neuts (auto) 15.4 H Absolute Nucleated RBC 0.000 Nucleated RBC % 0.0 % Immature Plt Fraction 9.9 Sodium 138 Potassium 3.4 Chloride 108 H Carbon Dioxide 20 L Anion Gap 10 BUN 51 H Creatinine 2.04 H Estim Creat Clear Calc 12 Estimated GFR 23 L Glucose 138 H Calcium 7.8 L Phosphorus 2.4 L Magnesium 1.9 Total Bilirubin 0.6 AST 16 ALT 20 Alkaline Phosphatase 155 H Total Protein 5.0 L Albumin 2.4 L U Random Total Protein 56 Ur Random Sodium 59 Ur Random Urea 360 Urine Creatinine 40.8 Protein/Creat Ratio 2 1.37 H
[2025-01-25] MEDS: SODIUM CHLORIDE 0.9% IV 1,000 ML 75 ML IV CONT (17:30)
[2025-01-26] VITALS (9 sets, daily range): BP systolic 113–134; BP diastolic 58–77; PULSE 67–90; RESP 16–17; TEMP 36.4–36.7; O2SAT 95–100
[2025-01-26 05:34] LABS: Basophils Absolute Auto 0.1 K/mm3 (0.0-0.1); Basophils Percent Auto 0.3 % (0.2-1.2); Eosinophils Absolute Auto 0.1 K/mm3 (0-0.3); Eosinophils Percent Auto 0.8 % (0-4.4); Hematocrit 30.6 % (37.0-47.0); Hemoglobin 9.7 g/dL (12.0-15.0); Immature Granulocyte Absolute 0.44 K/mm3 (0.00-0.031); Immature Granulocyte Percent A 2.8 % (0-0.5); Lymphocytes Absolute Auto 1.49 K/mm3 (0.9-3.2); Lymphocytes Percent Auto 9.6 % (18.3-44.2); Mean Corpuscular HGB Conc 31.7 g/dl (32-36); Mean Corpuscular Hemoglobin 28.6 pg (26-34); Mean Corpuscular Volume 90.3 fl (80-100); Mean Platelet Volume 12.7 fl (7.4-10.4); Monocytes Absolute Auto 0.9 K/mm3 (0.1-0.6); Monocytes Percent Auto 5.9 % (2.6-8.5); Neutrophils Absolute Auto 12.5 K/mm3 (1.3-6.7); Neutrophils Percent Auto 80.6 % (45.5-73.1); Platelet Count Result 164 k/mm3 (150-375); Red Blood Count 3.39 M/mm3 (4.2-5.4); Red Cell Distribution Width 15.5 % (11.5-14.5); White Blood Count 15.5 K/mm3 (4.5-10.0)
[2025-01-26 05:51] LABS: Alanine Aminotransferase 20 U/L (6-35); Albumin Level 2.4 g/dL (3.5-5.1); Alkaline Phosphatase 145 U/L (38-126); Anion Gap 10 mmol/L (4-12); Aspartate Amino Transferase 18 U/L (14-36); Bilirubin,Total 0.5 mg/dL (0.2-1.3); Blood Urea Nitrogen 39 mg/dL (7-17); Calcium 7.7 mg/dL (8.4-10.2); Carbon Dioxide 20 mmol/L (22-30); Chloride 108 mmol/L (98-107); Estimated CRCL calculation 13 ml/min; Estimated Glomerular Filt Rate 26; Glucose 102 mg/dL (65-110); Magnesium 1.7 mg/dL (1.6-2.3); Potassium 2.8 mmol/L (3.4-5.0); Sodium 138 mmol/L (137-145)
[2025-01-26] MEDS: POTASSIUM CHLORIDE INJ 40 MEQ in SODIUM CHLORIDE 0.9% IV 500 ML 130 MEQ IVPB (06:22)
[2025-01-26] MEDS: POTASSIUM CHLORIDE 20 MEQ PACKET (FOR LIQUID) 40 MEQ PO (06:25)
--- NOTE | 2025-01-26 07:03 | P.CDI_ITS ---
CDI Query Clarification Request BMI Nutritional Diagnostic Statement: Please refer to the comprehensive nutrition assessment for further information. If you agree with diagnosis of 1. Severe malnutrition related to poor intake, swallowing issues as evidenced by intakes <50% needs ~1 week; weight loss 6%/1 week; severe muscle wasting and fat loss 2. Swallowing difficulties related to chronic illness as evidenced by pt report of food getting stuck, cannot swallow. Please specify severity if known: * Mild * Moderate * Severe * Other/Unknown <Stacey Beckham RN - Last Filed: 01/26/25 07:03> Provider Comments Severe malnutrition Swallowing difficulties unknown severity <Evangelist Perdomo MD - Last Filed: 01/27/25 18:40>
[2025-01-26] MEDS: LORATADINE/PSEUDOEPHEDRINE (*CRX) 10/240 MG TABLET ER 24 HR 1 TAB PO (08:46)
[2025-01-26] MEDS: polyethylene glycoL 3350 17 GM POWD.PACK PO (08:46)
[2025-01-26] MEDS: oxyCODONE/ACETAMINOPHEN (*CRX) 10-325 MG TABLET 1 TAB PO ×2 (08:46→20:53)
[2025-01-26] MEDS: PANTOPRAZOLE 40 MG TABLET PO (08:46)
[2025-01-26] MEDS: HEPARIN SODIUM 5,000 UNITS/ML VIAL 5000 UNITS SUB-Q ×2 (08:47→20:50)
[2025-01-26] MEDS: cefTRIAXone 2 GM/NS 100 ML 2 GM/100 ML BAG IVPB (10:29)
[2025-01-26] MEDS: SODIUM CHLORIDE 0.9% IV 1,000 ML 75 ML IV CONT ×2 (10:34→23:44)
--- NOTE | 2025-01-26 10:56 | PCNFU ---
Nutrition Follow-Up Complete: 1. Severe malnutrition related to poor intake, swallowing issues as evidenced by intakes <50% needs ~1 week; weight loss 6%/1 week; severe muscle wasting and fat loss 2. Swallowing difficulties related to chronic illness as evidenced by pt report of food getting stuck, cannot swallow Goal: diet textures appropriate for patient needs Improve PO intake Patient has limited progress towards goal, we will continue current goal. Pt current nutrition is Regular with Ensure Enlive TID. Last recorded weight is 41.8 kg, no new weight to report. Bowel Motility:+BM reported 01/25 Labs Reviewed: Cr 1.83, BUN 39, Alb 2.4, K 2.8 Meds Noted: Normal Saline, Protonix, Miralax, Rocephin Skin: WNL Additional Notes: Patient remains on a regular diet. Oral Intake 0-50% of meals reported. Patient does have ensure Enlive ordered TID for additional 350 kcal and 20 gm protein. PO intake encouraged. Agree with diet orders. . Monitoring swallowing ability, weights, intakes, diet orders, supplement tolerance, plan of care Follow up in 3 days
--- NOTE | 2025-01-26 11:33 | PM.PNNEP ---
Subjective Date/time seen: 01/26/25 11:33 Interval history: Follow-up for acute kidney injury/acute renal failure. Chart reviewed -- assuming care from Dr. Barros; no apparent distress noted at the time of my visit; no issues/events overnight or earlier this morning; slow improvement in renal function/creatinine noted with reasonable urine output. Objective Data Vital Signs Vital Signs: Vital Signs Temp Pulse Resp BP Pulse Ox O2 Del Method 01/26/25 11:00 97.7 F 85 16 124/66 98 01/26/25 08:31 Room Air 01/26/25 08:00 Room Air 01/26/25 08:00 97.9 F 83 16 128/68 100 01/26/25 06:38 97.6 F 78 16 113/59 L 95 01/26/25 04:00 78 01/26/25 00:30 97.6 F 67 16 134/72 98 01/26/25 00:00 87 01/25/25 22:30 97.8 F 75 16 126/65 99 01/25/25 21:00 Room Air 01/25/25 20:00 79 Intake/Output Intake/Output: Intake & Output 01/23/25 01/24/25 01/25/25 01/26/25 23:59 23:59 23:59 23:59 Intake Total 2520 1460 1750 2010 Output Total 650 600 Balance 2520 810 1750 1410 Meds/Results Medications: Active Medications Generic Name Dose Route Start Last Admin Trade Name Freq PRN Reason Stop Dose Admin Acetaminophen 650 mg 01/23/25 14:13 Acetaminophen 325 Mg Tablet PO Q4H PRN Mild Pain (1-3) or Fever Acetaminophen 650 mg 01/24/25 05:46 Acetaminophen 650 Mg Suppository RECTAL Q6H PRN Mild Pain (1-3) or Fever Alprazolam 0.5 mg 01/23/25 16:13 Alprazolam (*Crx) 0.5 Mg Tablet PO BID PRN anxiety Gabapentin 100 mg 01/23/25 17:00 01/26/25 16:57 Gabapentin 100 Mg Capsule PO Not Given BID NIHARIKA Heparin Sodium (Porcine) 5,000 units 01/23/25 21:00 01/26/25 08:47 Heparin Sodium 5,000 Units/Ml Vial SUB-Q 5,000 units Q12HR NIHARIKA Administration Sodium Chloride 1,000 mls @ 75 mls/hr 01/23/25 14:15 01/26/25 10:34 Normal Saline Iv IV CONT 75 mls/hr .[id number] NIHARIKA Administration Ceftriaxone Sodium 2 gm in 100 mls @ 200 mls/hr 01/24/25 09:00 01/26/25 10:59 Rocephin 2 Gm/Ns 100 Ml IVPB Infused Q24H NIHARIKA Infusion Loratadine/Pseudoephedrine Sulfate 1 tab 01/24/25 09:00 01/26/25 08:46 Loratadine/Pseudoephedrine (*Crx) 10/240 Mg Tablet Er 24 Hr PO 1 tab QAM NIHARIKA Administration Ondansetron HCl 4 mg 01/23/25 14:04 Ondansetron Inj 4 Mg/2 Ml Vial IV PUSH Q4H PRN Nausea Oxycodone/Acetaminophen 1 tab 01/23/25 16:13 01/26/25 08:46 Oxycodone/Acetaminophen (*Crx) 10-325 Mg Tablet PO 1 tab TID PRN Administration back pain Pantoprazole Sodium 40 mg 01/25/25 11:40 01/26/25 08:46 Pantoprazole 40 Mg Tablet PO 40 mg QAM NIHARIKA Administration Polyethylene Glycol 17 gm 01/26/25 09:00 01/26/25 08:46 Polyethylene Glycol 3350 17 Gm Powd.Pack PO 17 gm QAM NIHARIKA Administration Radiology Results: ITS Impressions Chest X-Ray 01/23/25 12:45 Impression: No acute abnormality. Renal Ultrasound 01/24/25 11:28 Impression: 1: Unremarkable renal ultrasound. No stones, masses or hydronephrosis. 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 Labs Labs: Laboratory Tests 01/26/25 04:56 01/26/25 04:56 Calcium 7.7 L Magnesium 1.7 Total Bilirubin 0.5 AST 18 ALT 20 Alkaline Phosphatase 145 H Total Protein 5.0 L Albumin 2.4 L Microbiology 01/23/25 14:49 Blood Blood Culture - Final Escherichia Coli
[2025-01-26] MEDS: MAGNESIUM SULF 1 GM/D5W 100 ML 1 GM/100 ML BAG IVPB (11:57)
--- NOTE | 2025-01-26 13:55 | P.PNIM_ITS ---
Progress Note: A&P Assessment and Plan (1) Failure to thrive: Status: Acute (2) LIANE (acute kidney injury): Code(s): N17.9 - Acute kidney failure, unspecified Status: Acute (3) Acute UTI: Code(s): N39.0 - Urinary tract infection, site not specified Status: Acute (4) Hypokalemia: Code(s): E87.6 - Hypokalemia Status: Acute (5) Hypotension: Code(s): I95.9 - Hypotension, unspecified Status: Acute (6) Leukocytosis: Code(s): D72.829 - Elevated white blood cell count, unspecified Status: Acute Plan There 85-year-old female who presents to the ED with generalized weakness for the past week. Patient had multiple deaths in the family in the last week and ever since then she has been declining not eating or drinking. Patient stated no appetite feels extremely weak. She is also constantly sleeping. On ED evaluation her blood pressure was borderline other vitals were stable. Laboratory evaluation showed WBC of 23.8 hemoglobin 12.2 platelet of 144 sodium 134 potassium 2.9. Creatinine 2.8. Alkaline phosphatase was elevated at 226 mildly elevated bilirubin at 1.5 AST ALT was normal. Urinalysis showed more than 100 WBC 4+ bacteria 3+ leukocyte esterase urine cautious 6-10. Chest x-ray with no acute abnormality. EKG showed normal sinus rhythm with nonspecific ST-T changes. Patient received fluid bolus potassium supplement and IV Rocephin was started. She has been pancultured with blood culture and urine culture. Since admission leukocytosis continues to improve. Her baseline creatinine around 1.2 back in 2022. Creatinine continues to decline. Continue IV hydration as ordered. Failure to thrive Generalized weakness LIANE with creatinine of 2.8 on admission baseline creatinine 1.2 back from 2022. Hold diuretic and losartan. Non oliguric. Continue IV fluids. Renal ultrasound without hydronephrosis. Urinary hesitancy possible cystocele. CT abdomen without any other anatomic abnormality. She will likely need evaluation for this as an outpatient basis with urology/gynecology Bacteremia with Gram-negative bacilli increase ceftriaxone to 2 g daily identified as E coli. Sensitive to ceftriaxone will continue same UTI: urine culture growing E coli Regurgitation of food on often chronic problem. Will get esophagogram to further evaluate. 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 Chronic back pain on oxycodone p.r.n. Leukocytosis normal lactate DVT prophylaxis heparin subQ Code status full code Subjective Date/time seen: 01/26/25 13:55 Interval history: No overnight events, patient does not want to do any further testing or procedure. Labs reviewed Review of Systems Review of Systems: All systems reviewed & are unremarkable except as noted in HPI and below Exam Narrative: General: Cachectic ill-appearing, no acute distress HEENT: normocephalic, atraumatic. Mucous membranes moist. EOMI, PERRLA, bilateral sclera anicteric, no conjunctival injection. Neck supple without JVD, lymphadenopathy, or bruit. Respiratory: clear to auscultation bilaterally. No rales/rhonchi/wheezes. Cardiovascular: Regular rate and rhythm, normal S1-S2 upon auscultation. No murmurs, rubs, or clicks. Abdomen: Soft, round, no pulsatile masses, nondistended and nontender. Extremities: No cyanosis, clubbing, or edema present. Pulses are palpable 2/2. Neuro: Alert and orientated x 4. PERRLA. Cranial nerves 2-12 intact without focal deficit. Skin: Warm, dry, and intact, without rash, erythema, or lesion. Psych: pleasant, cooperative, normal speech, normal affect, no hallucinations, no dysarthia Objective Data Vital Signs Vital Signs: Vital Signs - 24 hr 01/25/25 13:56 01/25/25 16:00 01/25/25 16:00 Temperature 97 F L Pulse Rate 71 69 Respiratory Rate 18 Blood Pressure 101/77 Pulse Oximetry 97 Oxygen Delivery Room Air 01/25/25 20:00 01/25/25 21:00 01/25/25 22:30 Temperature 97.8 F Pulse Rate 79 75 Respiratory Rate 16 Blood Pressure 126/65 Pulse Oximetry 99 Oxygen Delivery Room Air 01/26/25 00:00 01/26/25 00:30 01/26/25 04:00 Temperature 97.6 F Pulse Rate 87 67 78 Respiratory Rate 16 Blood Pressure 134/72 Pulse Oximetry 98 Oxygen Delivery 01/26/25 06:38 01/26/25 08:00 01/26/25 08:31 Temperature 97.6 F 97.9 F Pulse Rate 78 83 Respiratory Rate 16 16 Blood Pressure 113/59 L 128/68 Pulse Oximetry 95 100 Oxygen Delivery Room Air Intake/Output Intake/Output: Intake & Output 01/23/25 01/24/25 01/25/25 01/26/25 23:59 23:59 23:59 23:59 Intake Total 2520 1460 1750 1810 Output Total 650 600 Balance 2520 810 1750 1210 Meds/Results Medications: Active Medications Generic Name Dose Route Start Last Admin Trade Name Freq PRN Reason Stop Dose Admin Acetaminophen 650 mg 01/23/25 14:13 Acetaminophen 325 Mg Tablet PO Q4H PRN Mild Pain (1-3) or Fever Acetaminophen 650 mg 01/24/25 05:46 Acetaminophen 650 Mg Suppository RECTAL Q6H PRN Mild Pain (1-3) or Fever Alprazolam 0.5 mg 01/23/25 16:13 Alprazolam (*Crx) 0.5 Mg Tablet PO BID PRN anxiety Gabapentin 100 mg 01/23/25 17:00 01/26/25 09:18 Gabapentin 100 Mg Capsule PO Not Given BID NIHARIKA Heparin Sodium (Porcine) 5,000 units 01/23/25 21:00 01/26/25 08:47 Heparin Sodium 5,000 Units/Ml Vial SUB-Q 5,000 units Q12HR NIHARIKA Administration Sodium Chloride 1,000 mls @ 75 mls/hr 01/23/25 14:15 01/26/25 10:34 Normal Saline Iv IV CONT 75 mls/hr .[id number] NIHARIKA Administration Ceftriaxone Sodium 2 gm in 100 mls @ 200 mls/hr 01/24/25 09:00 01/26/25 10:29 Rocephin 2 Gm/Ns 100 Ml IVPB 200 mls/hr Q24H NIHARIKA Administration Loratadine/Pseudoephedrine Sulfate 1 tab 01/24/25 09:00 01/26/25 08:46 Loratadine/Pseudoephedrine (*Crx) 10/240 Mg Tablet Er 24 Hr PO 1 tab QAM NIHARIKA Administration Ondansetron HCl 4 mg 01/23/25 14:04 Ondansetron Inj 4 Mg/2 Ml Vial IV PUSH Q4H PRN Nausea Oxycodone/Acetaminophen 1 tab 01/23/25 16:13 01/26/25 08:46 Oxycodone/Acetaminophen (*Crx) 10-325 Mg Tablet PO 1 tab TID PRN Administration back pain Pantoprazole Sodium 40 mg 01/25/25 11:40 01/26/25 08:46 Pantoprazole 40 Mg Tablet PO 40 mg QAM NIHARIKA Administration Polyethylene Glycol 17 gm 01/26/25 09:00 01/26/25 08:46 Polyethylene Glycol 3350 17 Gm Powd.Pack PO 17 gm QAM NIHARIKA Administration Radiology Results: ITS Impressions Chest X-Ray 01/23/25 12:45 Impression: No acute abnormality. Renal Ultrasound 01/24/25 11:28 Impression: 1: Unremarkable renal ultrasound. No stones, masses or hydronephrosis. 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 Labs Labs: Laboratory Results - last 24 hr 01/26/25 04:56 WBC 15.5 H RBC 3.39 L Hgb 9.7 L Hct 30.6 L MCV 90.3 MCH 28.6 MCHC 31.7 L RDW 15.5 H Plt Count 164 MPV 12.7 H Immature Gran % (Auto) 2.8 H Neut % (Auto) 80.6 H Lymph % (Auto) 9.6 L [place] % (Auto) 5.9 Eos % (Auto) 0.8 Baso % (Auto) 0.3 Lymph # (Auto) 1.49 [place] # (Auto) 0.9 H Eos # (Auto) 0.1 Baso # (Auto) 0.1 Abs Immat Gran (auto) 0.44 H Absolute Neuts (auto) 12.5 H Absolute Nucleated RBC 0.000 Nucleated RBC % 0.0 Sodium 138 Potassium 2.8 L* Chloride 108 H Carbon Dioxide 20 L Anion Gap 10 BUN 39 H D Creatinine 1.83 H Estim Creat Clear Calc 13 Estimated GFR 26 L Glucose 102 Calcium 7.7 L Magnesium 1.7 Total Bilirubin 0.5 AST 18 ALT 20 Alkaline Phosphatase 145 H Total Protein 5.0 L Albumin 2.4 L
[2025-01-26 21:33] LABS: Potassium 4.3 mmol/L (3.4-5.0)
[2025-01-26] MEDS: ALPRAZolam (*CRX) 0.5 MG TABLET PO (23:51)
[2025-01-27] VITALS: BP 105/82; PULSE 89; RESP 16; TEMP 36.7; O2SAT 96
[2025-01-27 05:29] LABS: Basophils Absolute Auto 0.1 K/mm3 (0.0-0.1); Basophils Percent Auto 0.6 % (0.2-1.2); Eosinophils Absolute Auto 0.3 K/mm3 (0-0.3); Eosinophils Percent Auto 1.7 % (0-4.4); Hematocrit 32.9 % (37.0-47.0); Hemoglobin 10.2 g/dL (12.0-15.0); Immature Granulocyte Absolute 0.79 K/mm3 (0.00-0.031); Lymphocytes Absolute Auto 1.61 K/mm3 (0.9-3.2); Lymphocytes Percent Auto 10.3 % (18.3-44.2); Mean Corpuscular Hemoglobin 28.3 pg (26-34); Mean Corpuscular Volume 91.1 fl (80-100); Mean Platelet Volume 12.4 fl (7.4-10.4); Monocytes Percent Auto 6.5 % (2.6-8.5); Neutrophils Absolute Auto 11.9 K/mm3 (1.3-6.7); Neutrophils Percent Auto 75.9 % (45.5-73.1); Platelet Count Result 180 k/mm3 (150-375); Red Blood Count 3.61 M/mm3 (4.2-5.4); Red Cell Distribution Width 15.9 % (11.5-14.5); White Blood Count 15.7 K/mm3 (4.5-10.0)
[2025-01-27 05:46] LABS: Alanine Aminotransferase 20 U/L (6-35); Albumin Level 2.3 g/dL (3.5-5.1); Alkaline Phosphatase 136 U/L (38-126); Anion Gap 9 mmol/L (4-12); Aspartate Amino Transferase 20 U/L (14-36); Bilirubin,Total 0.5 mg/dL (0.2-1.3); Blood Urea Nitrogen 34 mg/dL (7-17); Calcium 7.9 mg/dL (8.4-10.2); Carbon Dioxide 17 mmol/L (22-30); Chloride 111 mmol/L (98-107); Estimated CRCL calculation 15 ml/min; Estimated Glomerular Filt Rate 29; Glucose 95 mg/dL (65-110); Sodium 137 mmol/L (137-145)
[2025-01-27 06:54] VITALS: BP 112/62; PULSE 62; RESP 16; TEMP 36.4; O2SAT 94
[2025-01-27 08:00] VITALS: BP 107/73; PULSE 78; RESP 20; TEMP 36.5; O2SAT 97
[2025-01-27] MEDS: LORATADINE/PSEUDOEPHEDRINE (*CRX) 10/240 MG TABLET ER 24 HR 1 TAB PO (08:46)
[2025-01-27] MEDS: GABAPENTIN 100 MG CAPSULE PO ×2 (08:46→17:06)
[2025-01-27] MEDS: PANTOPRAZOLE 40 MG TABLET PO (08:46)
[2025-01-27] MEDS: cefTRIAXone 2 GM/NS 100 ML 2 GM/100 ML BAG IVPB (08:47)
[2025-01-27] MEDS: polyethylene glycoL 3350 17 GM POWD.PACK PO (08:47)
[2025-01-27] MEDS: HEPARIN SODIUM 5,000 UNITS/ML VIAL 5000 UNITS SUB-Q ×2 (08:47→22:02)
--- NOTE | 2025-01-27 11:33 | PM.PNNEP ---
Subjective Date/time seen: 01/27/25 11:33 Interval history: Follow-up for acute kidney injury/acute renal failure. Renal function/creatinine continues to slowly improve with current therapy/interventions and making reasonable urine output; she is not interested in any more testing or procedures; nursing reports informational meeting this afternoon regarding hospice. Objective Data Vital Signs Vital Signs: Vital Signs Temp Pulse Resp BP Pulse Ox O2 Del Method 01/27/25 08:45 Room Air 01/27/25 08:00 97.7 F 78 20 107/73 97 01/27/25 06:54 97.6 F 62 16 112/62 94 01/27/25 00:00 98.0 F 89 16 105/82 96 01/26/25 20:08 98.0 F 82 16 114/77 96 01/26/25 20:00 83 01/26/25 20:00 Room Air Intake/Output Intake/Output: Intake & Output 01/24/25 01/25/25 01/26/25 01/27/25 23:59 23:59 23:59 23:59 Intake Total 1460 1750 3117.5 1715 Output Total 650 800 700 Balance 810 1750 2317.5 1015 Meds/Results Medications: Active Medications Generic Name Dose Route Start Last Admin Trade Name Freq PRN Reason Stop Dose Admin Acetaminophen 650 mg 01/23/25 14:13 Acetaminophen 325 Mg Tablet PO Q4H PRN Mild Pain (1-3) or Fever Acetaminophen 650 mg 01/24/25 05:46 Acetaminophen 650 Mg Suppository RECTAL Q6H PRN Mild Pain (1-3) or Fever Alprazolam 0.5 mg 01/23/25 16:13 01/26/25 23:51 Alprazolam (*Crx) 0.5 Mg Tablet PO 0.5 mg BID PRN Administration anxiety Gabapentin 100 mg 01/23/25 17:00 01/27/25 17:06 Gabapentin 100 Mg Capsule PO 100 mg BID NIHRAIKA Administration Heparin Sodium (Porcine) 5,000 units 01/23/25 21:00 01/27/25 08:47 Heparin Sodium 5,000 Units/Ml Vial SUB-Q 5,000 units Q12HR NIHARIKA Administration Ceftriaxone Sodium 2 gm in 100 mls @ 200 mls/hr 01/24/25 09:00 01/27/25 09:17 Rocephin 2 Gm/Ns 100 Ml IVPB Infused Q24H NIHARIKA Infusion Loratadine/Pseudoephedrine Sulfate 1 tab 01/24/25 09:00 01/27/25 08:46 Loratadine/Pseudoephedrine (*Crx) 10/240 Mg Tablet Er 24 Hr PO 1 tab QAM NIHARIKA Administration Ondansetron HCl 4 mg 01/23/25 14:04 Ondansetron Inj 4 Mg/2 Ml Vial IV PUSH Q4H PRN Nausea Oxycodone/Acetaminophen 1 tab 01/23/25 16:13 01/27/25 17:06 Oxycodone/Acetaminophen (*Crx) 10-325 Mg Tablet PO 1 tab TID PRN Administration back pain Pantoprazole Sodium 40 mg 01/25/25 11:40 01/27/25 08:46 Pantoprazole 40 Mg Tablet PO 40 mg QAM NIHARIKA Administration Polyethylene Glycol 17 gm 01/26/25 09:00 01/27/25 08:47 Polyethylene Glycol 3350 17 Gm Powd.Pack PO 17 gm QAM NIHARIKA Administration Radiology Results: ITS Impressions Chest X-Ray 01/23/25 12:45 Impression: No acute abnormality. Renal Ultrasound 01/24/25 11:28 Impression: 1: Unremarkable renal ultrasound. No stones, masses or hydronephrosis. 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 Labs Labs: Laboratory Tests 01/27/25 05:01 01/27/25 05:01 Calcium 7.9 L Magnesium 2.0 Total Bilirubin 0.5 AST 20 ALT 20 Alkaline Phosphatase 136 H Total Protein 5.0 L Albumin 2.3 L
[2025-01-27 12:00] VITALS: BP 112/82; PULSE 74; RESP 19; TEMP 36.4; O2SAT 96
--- NOTE | 2025-01-27 14:55 | P.PNIM_ITS ---
Progress Note: A&P Assessment and Plan (1) Failure to thrive: Status: Acute (2) LIANE (acute kidney injury): Code(s): N17.9 - Acute kidney failure, unspecified Status: Acute (3) Acute UTI: Code(s): N39.0 - Urinary tract infection, site not specified Status: Acute (4) Hypokalemia: Code(s): E87.6 - Hypokalemia Status: Acute (5) Hypotension: Code(s): I95.9 - Hypotension, unspecified Status: Acute (6) Leukocytosis: Code(s): D72.829 - Elevated white blood cell count, unspecified Status: Acute Plan There 85-year-old female who presents to the ED with generalized weakness for the past week. Patient had multiple deaths in the family in the last week and ever since then she has been declining not eating or drinking. Patient stated no appetite feels extremely weak. She is also constantly sleeping. On ED evaluation her blood pressure was borderline other vitals were stable. Laboratory evaluation showed WBC of 23.8 hemoglobin 12.2 platelet of 144 sodium 134 potassium 2.9. Creatinine 2.8. Alkaline phosphatase was elevated at 226 mildly elevated bilirubin at 1.5 AST ALT was normal. Urinalysis showed more than 100 WBC 4+ bacteria 3+ leukocyte esterase urine cautious 6-10. Chest x-ray with no acute abnormality. EKG showed normal sinus rhythm with nonspecific ST-T changes. Patient received fluid bolus potassium supplement and IV Rocephin was started. She has been pancultured with blood culture and urine culture. Since admission leukocytosis continues to improve. Her baseline creatinine around 1.2 back in 2022. Creatinine continues to decline. Continue IV hydration as ordered. Failure to thrive Generalized weakness LIANE with creatinine of 2.8 on admission baseline creatinine 1.2 back from 2022. Hold diuretic and losartan. Non oliguric. Continue IV fluids. Renal ultrasound without hydronephrosis. Slowly improving renal function Urinary hesitancy possible cystocele. CT abdomen without any other anatomic abnormality. She will likely need evaluation for this as an outpatient basis with urology/gynecology. She however does not want do any further workup Bacteremia with Gram-negative bacilli increase ceftriaxone to 2 g daily identified as E coli. Sensitive to ceftriaxone will continue same UTI: urine culture growing E coli. Can switch to oral to complete the course. Regurgitation of food on often chronic problem. Will get esophagogram to further evaluate. 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 Discussed hospice with the patient and they are going to have informational meeting today Hypokalemia: Replace and monitor Hypertension Anxiety disorder on alprazolam p.r.n. Chronic back pain on oxycodone p.r.n. Leukocytosis normal lactate DVT prophylaxis heparin subQ Code status full code Subjective Date/time seen: 01/27/25 14:55 Interval history: No overnight events. No new complaints. Labs reviewed. Hospice meeting today. Review of Systems Review of Systems: All systems reviewed & are unremarkable except as noted in HPI and below Exam Narrative: General: Cachectic ill-appearing, no acute distress HEENT: normocephalic, atraumatic. Mucous membranes moist. EOMI, PERRLA, bilateral sclera anicteric, no conjunctival injection. Neck supple without JVD, lymphadenopathy, or bruit. Respiratory: clear to auscultation bilaterally. No rales/rhonchi/wheezes. Cardiovascular: Regular rate and rhythm, normal S1-S2 upon auscultation. No murmurs, rubs, or clicks. Abdomen: Soft, round, no pulsatile masses, nondistended and nontender. Extremities: No cyanosis, clubbing, or edema present. Pulses are palpable 2/2. Neuro: Alert and orientated x 4. PERRLA. Cranial nerves 2-12 intact without focal deficit. Skin: Warm, dry, and intact, without rash, erythema, or lesion. Psych: pleasant, cooperative, normal speech, normal affect, no hallucinations, no dysarthia Objective Data Vital Signs Vital Signs: Vital Signs - 24 hr 01/26/25 16:00 01/26/25 16:00 01/26/25 20:00 Temperature 97.7 F Pulse Rate 90 77 Respiratory Rate 17 Blood Pressure 120/58 L Pulse Oximetry 99 Oxygen Delivery Room Air 01/26/25 20:00 01/26/25 20:08 01/27/25 00:00 Temperature 98.0 F 98.0 F Pulse Rate 83 82 89 Respiratory Rate 16 16 Blood Pressure 114/77 105/82 Pulse Oximetry 96 96 Oxygen Delivery 01/27/25 06:54 01/27/25 08:00 01/27/25 08:45 Temperature 97.6 F 97.7 F Pulse Rate 62 78 Respiratory Rate 16 20 Blood Pressure 112/62 107/73 Pulse Oximetry 94 97 Oxygen Delivery Room Air 01/27/25 12:00 Temperature 97.6 F Pulse Rate 74 Respiratory Rate 19 Blood Pressure 112/82 Pulse Oximetry 96 Oxygen Delivery Intake/Output Intake/Output: Intake & Output 01/24/25 01/25/25 01/26/25 01/27/25 23:59 23:59 23:59 23:59 Intake Total 1460 1750 3117.5 540 Output Total 650 800 700 Balance 810 1750 2317.5 -160 Meds/Results Medications: Active Medications Generic Name Dose Route Start Last Admin Trade Name Freq PRN Reason Stop Dose Admin Acetaminophen 650 mg 01/23/25 14:13 Acetaminophen 325 Mg Tablet PO Q4H PRN Mild Pain (1-3) or Fever Acetaminophen 650 mg 01/24/25 05:46 Acetaminophen 650 Mg Suppository RECTAL Q6H PRN Mild Pain (1-3) or Fever Alprazolam 0.5 mg 01/23/25 16:13 01/26/25 23:51 Alprazolam (*Crx) 0.5 Mg Tablet PO 0.5 mg BID PRN Administration anxiety Gabapentin 100 mg 01/23/25 17:00 01/27/25 08:46 Gabapentin 100 Mg Capsule PO 100 mg BID NIHARIKA Administration Heparin Sodium (Porcine) 5,000 units 01/23/25 21:00 01/27/25 08:47 Heparin Sodium 5,000 Units/Ml Vial SUB-Q 5,000 units Q12HR NIHARIKA Administration Sodium Chloride 1,000 mls @ 75 mls/hr 01/23/25 14:15 01/26/25 23:44 Normal Saline Iv IV CONT 75 mls/hr .[id number] NIHARIKA Administration Ceftriaxone Sodium 2 gm in 100 mls @ 200 mls/hr 01/24/25 09:00 01/27/25 09:17 Rocephin 2 Gm/Ns 100 Ml IVPB Infused Q24H NIHARIKA Infusion Loratadine/Pseudoephedrine Sulfate 1 tab 01/24/25 09:00 01/27/25 08:46 Loratadine/Pseudoephedrine (*Crx) 10/240 Mg Tablet Er 24 Hr PO 1 tab QAM NIHARIKA Administration Ondansetron HCl 4 mg 01/23/25 14:04 Ondansetron Inj 4 Mg/2 Ml Vial IV PUSH Q4H PRN Nausea Oxycodone/Acetaminophen 1 tab 01/23/25 16:13 01/26/25 20:53 Oxycodone/Acetaminophen (*Crx) 10-325 Mg Tablet PO 1 tab TID PRN Administration back pain Pantoprazole Sodium 40 mg 01/25/25 11:40 01/27/25 08:46 Pantoprazole 40 Mg Tablet PO 40 mg QAM NIHARIAK Administration Polyethylene Glycol 17 gm 01/26/25 09:00 01/27/25 08:47 Polyethylene Glycol 3350 17 Gm Powd.Pack PO 17 gm QAM NIHARIKA Administration Radiology Results: ITS Impressions Chest X-Ray 01/23/25 12:45 Impression: No acute abnormality. Renal Ultrasound 01/24/25 11:28 Impression: 1: Unremarkable renal ultrasound. No stones, masses or hydronephrosis. 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 Labs Labs: Laboratory Results - last 24 hr 01/26/25 01/27/25 21:08 05:01 WBC 15.7 H RBC 3.61 L Hgb 10.2 L Hct 32.9 L MCV 91.1 MCH 28.3 MCHC 31.0 L RDW 15.9 H Plt Count 180 MPV 12.4 H Immature Gran % (Auto) 5.0 H Neut % (Auto) 75.9 H Lymph % (Auto) 10.3 L [place] % (Auto) 6.5 Eos % (Auto) 1.7 Baso % (Auto) 0.6 Lymph # (Auto) 1.61 [place] # (Auto) 1.0 H Eos # (Auto) 0.3 Baso # (Auto) 0.1 Abs Immat Gran (auto) 0.79 H Absolute Neuts (auto) 11.9 H Absolute Nucleated RBC 0.000 Nucleated RBC % 0.0 Sodium 137 Potassium 4.3 4.0 Chloride 111 H Carbon Dioxide 17 L Anion Gap 9 BUN 34 H Creatinine 1.66 H Estim Creat Clear Calc 15 Estimated GFR 29 L Glucose 95 Calcium 7.9 L Magnesium 2.0 Total Bilirubin 0.5 AST 20 ALT 20 Alkaline Phosphatase 136 H Total Protein 5.0 L Albumin 2.3 L
[2025-01-27 16:00] VITALS: BP 110/78; PULSE 72; RESP 18; TEMP 36.4; O2SAT 96
[2025-01-27] MEDS: oxyCODONE/ACETAMINOPHEN (*CRX) 10-325 MG TABLET 1 TAB PO (17:06)
[2025-01-27 19:58] VITALS: BP 108/78; PULSE 64; RESP 17; TEMP 36.8; O2SAT 97
[2025-01-27] MEDS: ALPRAZolam (*CRX) 0.5 MG TABLET PO (22:02)
[2025-01-28] VITALS (7 sets, daily range): BP systolic 107–149; BP diastolic 48–85; PULSE 75–114; RESP 14–18; TEMP 36.3–36.7; O2SAT 90–98
[2025-01-28 05:22] LABS: Basophils Absolute Auto 0.1 K/mm3 (0.0-0.1); Basophils Percent Auto 0.6 % (0.2-1.2); Eosinophils Absolute Auto 0.3 K/mm3 (0-0.3); Eosinophils Percent Auto 2.2 % (0-4.4); Hemoglobin 8.9 g/dL (12.0-15.0); Immature Granulocyte Absolute 0.57 K/mm3 (0.00-0.031); Immature Platelet Fraction Pct 9.3 % (0.9-11.2); Lymphocytes Absolute Auto 1.87 K/mm3 (0.9-3.2); Mean Corpuscular HGB Conc 29.7 g/dl (32-36); Mean Corpuscular Hemoglobin 28.5 pg (26-34); Mean Corpuscular Volume 96.2 fl (80-100); Mean Platelet Volume 13.4 fl (7.4-10.4); Monocytes Absolute Auto 0.9 K/mm3 (0.1-0.6); Monocytes Percent Auto 5.9 % (2.6-8.5); Neutrophils Absolute Auto 10.7 K/mm3 (1.3-6.7); Neutrophils Percent Auto 74.3 % (45.5-73.1); Platelet Count Result 172 k/mm3 (150-375); Red Blood Count 3.12 M/mm3 (4.2-5.4); Red Cell Distribution Width 16.4 % (11.5-14.5); White Blood Count 14.4 K/mm3 (4.5-10.0)
[2025-01-28 05:26] LABS: Alanine Aminotransferase 18 U/L (6-35); Albumin Level 2.1 g/dL (3.5-5.1); Alkaline Phosphatase 101 U/L (38-126); Anion Gap 9 mmol/L (4-12); Aspartate Amino Transferase 33 U/L (14-36); Bilirubin,Total 0.6 mg/dL (0.2-1.3); Blood Urea Nitrogen 32 mg/dL (7-17); Calcium 7.8 mg/dL (8.4-10.2); Carbon Dioxide 17 mmol/L (22-30); Chloride 112 mmol/L (98-107); Estimated CRCL calculation 16 ml/min; Estimated Glomerular Filt Rate 33; Glucose 86 mg/dL (65-110); Potassium 4.5 mmol/L (3.4-5.0); Sodium 138 mmol/L (137-145)
[2025-01-28] MEDS: oxyCODONE/ACETAMINOPHEN (*CRX) 10-325 MG TABLET 1 TAB PO ×2 (08:45→17:22)
[2025-01-28] MEDS: PANTOPRAZOLE 40 MG TABLET PO (08:45)
[2025-01-28] MEDS: LORATADINE/PSEUDOEPHEDRINE (*CRX) 10/240 MG TABLET ER 24 HR 1 TAB PO (08:45)
[2025-01-28] MEDS: GABAPENTIN 100 MG CAPSULE PO ×2 (08:45→17:22)
[2025-01-28] MEDS: cefTRIAXone 2 GM/NS 100 ML 2 GM/100 ML BAG IVPB (08:46)
[2025-01-28] MEDS: HEPARIN SODIUM 5,000 UNITS/ML VIAL 5000 UNITS SUB-Q ×2 (08:46→20:44)
[2025-01-28] MEDS: polyethylene glycoL 3350 17 GM POWD.PACK PO (08:46)
--- NOTE | 2025-01-28 13:30 | PM.PNNEP ---
Subjective Date/time seen: 01/28/25 13:30 Objective Data Vital Signs Vital Signs: Vital Signs Temp Pulse Resp BP Pulse Ox O2 Del Method 01/28/25 12:00 97.9 F 75 14 122/85 98 01/28/25 08:45 Room Air 01/28/25 08:00 98.0 F 114 H 14 149/55 H 96 01/28/25 03:47 97.4 F L 81 16 115/50 L 94 01/28/25 00:00 98.1 F 85 17 109/48 L 97 01/27/25 22:00 Room Air 01/27/25 19:58 98.3 F 64 17 108/78 97 Intake/Output Intake/Output: Intake & Output 01/25/25 01/26/25 01/27/25 01/28/25 23:59 23:59 23:59 23:59 Intake Total 1750 3117.5 1715 360 Output Total 800 1200 100 Balance 1750 2317.5 515 260 Meds/Results Medications: Active Medications Generic Name Dose Route Start Last Admin Trade Name Freq PRN Reason Stop Dose Admin Acetaminophen 650 mg 01/23/25 14:13 Acetaminophen 325 Mg Tablet PO Q4H PRN Mild Pain (1-3) or Fever Acetaminophen 650 mg 01/24/25 05:46 Acetaminophen 650 Mg Suppository RECTAL Q6H PRN Mild Pain (1-3) or Fever Alprazolam 0.5 mg 01/23/25 16:13 01/27/25 22:02 Alprazolam (*Crx) 0.5 Mg Tablet PO 0.5 mg BID PRN Administration anxiety Gabapentin 100 mg 01/23/25 17:00 01/28/25 08:45 Gabapentin 100 Mg Capsule PO 100 mg BID NIHARIKA Administration Heparin Sodium (Porcine) 5,000 units 01/23/25 21:00 01/28/25 08:46 Heparin Sodium 5,000 Units/Ml Vial SUB-Q 5,000 units Q12HR NIHARIKA Administration Ceftriaxone Sodium 2 gm in 100 mls @ 200 mls/hr 01/24/25 09:00 01/28/25 09:16 Rocephin 2 Gm/Ns 100 Ml IVPB Infused Q24H NIHARIKA Infusion Loratadine/Pseudoephedrine Sulfate 1 tab 01/24/25 09:00 01/28/25 08:45 Loratadine/Pseudoephedrine (*Crx) 10/240 Mg Tablet Er 24 Hr PO 1 tab QAM NIHARIKA Administration Ondansetron HCl 4 mg 01/23/25 14:04 Ondansetron Inj 4 Mg/2 Ml Vial IV PUSH Q4H PRN Nausea Oxycodone/Acetaminophen 1 tab 01/23/25 16:13 01/28/25 08:45 Oxycodone/Acetaminophen (*Crx) 10-325 Mg Tablet PO 1 tab TID PRN Administration back pain Pantoprazole Sodium 40 mg 01/25/25 11:40 01/28/25 08:45 Pantoprazole 40 Mg Tablet PO 40 mg QAM NIHARIKA Administration Polyethylene Glycol 17 gm 01/26/25 09:00 01/28/25 08:46 Polyethylene Glycol 3350 17 Gm Powd.Pack PO 17 gm QAM NIHARIKA Administration Radiology Results: ITS Impressions Chest X-Ray 01/23/25 12:45 Impression: No acute abnormality. Renal Ultrasound 01/24/25 11:28 Impression: 1: Unremarkable renal ultrasound. No stones, masses or hydronephrosis. 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 Labs Labs: Laboratory Tests 01/28/25 04:34 01/28/25 04:34 Calcium 7.8 L Magnesium 2.0 Total Bilirubin 0.6 AST 33 ALT 18 Alkaline Phosphatase 101 Total Protein 5.0 L Albumin 2.1 L
--- NOTE | 2025-01-28 17:29 | PM.IMPN ---
Progress Note: A&P Assessment and Plan (1) Failure to thrive: Status: Acute (2) LIANE (acute kidney injury): Code(s): N17.9 - Acute kidney failure, unspecified Status: Acute (3) Acute UTI: Code(s): N39.0 - Urinary tract infection, site not specified Status: Acute (4) Hypokalemia: Code(s): E87.6 - Hypokalemia Status: Acute (5) Hypotension: Code(s): I95.9 - Hypotension, unspecified Status: Acute (6) Leukocytosis: Code(s): D72.829 - Elevated white blood cell count, unspecified Status: Acute (7) Bacteremia: Code(s): R78.81 - Bacteremia Status: Acute Plan There 85-year-old female who presents to the ED with generalized weakness for the past week. Patient had multiple deaths in the family in the last week and ever since then she has been declining not eating or drinking. Patient stated no appetite feels extremely weak. She is also constantly sleeping. On ED evaluation her blood pressure was borderline other vitals were stable. Laboratory evaluation showed WBC of 23.8 hemoglobin 12.2 platelet of 144 sodium 134 potassium 2.9. Creatinine 2.8. Alkaline phosphatase was elevated at 226 mildly elevated bilirubin at 1.5 AST ALT was normal. Urinalysis showed more than 100 WBC 4+ bacteria 3+ leukocyte esterase urine cautious 6-10. Chest x-ray with no acute abnormality. EKG showed normal sinus rhythm with nonspecific ST-T changes. Patient received fluid bolus potassium supplement and IV Rocephin was started. She has been pancultured with blood culture and urine culture. Since admission leukocytosis continues to improve. Her baseline creatinine around 1.2 back in 2022. Creatinine continues to decline. Continue IV hydration as ordered. Failure to thrive Generalized weakness LIANE with creatinine of 2.8 on admission baseline creatinine 1.2 back from 2022. Holding diuretic and losartan. Non oliguric. Renal ultrasound without hydronephrosis. Slowly improving renal function. IV fluids off. Urinary hesitancy possible cystocele. CT abdomen without any other anatomic abnormality. She will likely need evaluation for this as an outpatient basis with urology/gynecology. She however does not want do any further workup Bacteremia with EColi increase ceftriaxone to 2 g daily identified as E coli. Sensitive to ceftriaxone. Change to oral route UTI: urine culture growing E coli. Can switch to oral to complete the course. Regurgitation of food on often chronic problem. 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 Discussed hospice with the patient and they are going to have informational meeting today Hypokalemia: Replace and monitor Hypertension Anxiety disorder on alprazolam p.r.n. Chronic back pain on oxycodone p.r.n. Disp - okay for discharge DVT prophylaxis heparin subQ Code status full code Subjective Date/time seen: 01/28/25 17:29 Interval history: 85yo female with volume overload managed by furosemide, neuropathy, hypertension, chronic pain, anxiety, and corkscrew esophagus here for weakness. Assuming care. Chart reviewed. Patient feels better. Pain controlled with prn oxycodone. Hospice consult pending. She is refusing to wear the tele. Exam Narrative: AF 98.0 125/61 81 14 90% ra Gen - NARD Chest - CTA bilaterally, nml RR CV - RRR S1/S2 Abd - Soft, NT/ND, Positive BS Ext - No pedal edema. LUE edema Neuro - Alert and appropriate Psych - Nml mood and affect Skin - Warm and dry Objective Data Vital Signs Vital Signs: Vital Signs - 24 hr 01/27/25 19:58 01/27/25 22:00 01/28/25 00:00 Temperature 98.3 F 98.1 F Pulse Rate 64 85 Respiratory Rate 17 17 Blood Pressure 108/78 109/48 L Pulse Oximetry 97 97 Oxygen Delivery Room Air 01/28/25 03:47 01/28/25 08:00 01/28/25 08:45 Temperature 97.4 F L 98.0 F Pulse Rate 81 114 H Respiratory Rate 16 14 Blood Pressure 115/50 L 149/55 H Pulse Oximetry 94 96 Oxygen Delivery Room Air 01/28/25 12:00 01/28/25 16:00 Temperature 97.9 F 98.0 F Pulse Rate 75 81 Respiratory Rate 14 14 Blood Pressure 122/85 125/61 Pulse Oximetry 98 90 Oxygen Delivery Intake/Output Intake/Output: Intake & Output 01/25/25 01/26/25 01/27/25 01/28/25 23:59 23:59 23:59 23:59 Intake Total 1750 3117.5 1715 910 Output Total 800 1200 750 Balance 1750 2317.5 515 160 Meds/Results Medications: Active Medications Generic Name Dose Route Start Last Admin Trade Name Freq PRN Reason Stop Dose Admin Acetaminophen 650 mg 01/23/25 14:13 Acetaminophen 325 Mg Tablet PO Q4H PRN Mild Pain (1-3) or Fever Acetaminophen 650 mg 01/24/25 05:46 Acetaminophen 650 Mg Suppository RECTAL Q6H PRN Mild Pain (1-3) or Fever Alprazolam 0.5 mg 01/23/25 16:13 01/27/25 22:02 Alprazolam (*Crx) 0.5 Mg Tablet PO 0.5 mg BID PRN Administration anxiety Gabapentin 100 mg 01/23/25 17:00 01/28/25 17:22 Gabapentin 100 Mg Capsule PO 100 mg BID NIHARIKA Administration Heparin Sodium (Porcine) 5,000 units 01/23/25 21:00 01/28/25 08:46 Heparin Sodium 5,000 Units/Ml Vial SUB-Q 5,000 units Q12HR NIHARIKA Administration Ceftriaxone Sodium 2 gm in 100 mls @ 200 mls/hr 01/24/25 09:00 01/28/25 09:16 Rocephin 2 Gm/Ns 100 Ml IVPB Infused Q24H NIHARIKA Infusion Loratadine/Pseudoephedrine Sulfate 1 tab 01/24/25 09:00 01/28/25 08:45 Loratadine/Pseudoephedrine (*Crx) 10/240 Mg Tablet Er 24 Hr PO 1 tab QAM NIHARIKA Administration Ondansetron HCl 4 mg 01/23/25 14:04 Ondansetron Inj 4 Mg/2 Ml Vial IV PUSH Q4H PRN Nausea Oxycodone/Acetaminophen 1 tab 01/23/25 16:13 01/28/25 17:22 Oxycodone/Acetaminophen (*Crx) 10-325 Mg Tablet PO 1 tab TID PRN Administration back pain Pantoprazole Sodium 40 mg 01/25/25 11:40 01/28/25 08:45 Pantoprazole 40 Mg Tablet PO 40 mg QAM NIHARIKA Administration Polyethylene Glycol 17 gm 01/26/25 09:00 01/28/25 08:46 Polyethylene Glycol 3350 17 Gm Powd.Pack PO 17 gm QAM NIHARIKA Administration Radiology Results: ITS Impressions Chest X-Ray 01/23/25 12:45 Impression: No acute abnormality. Renal Ultrasound 01/24/25 11:28 Impression: 1: Unremarkable renal ultrasound. No stones, masses or hydronephrosis. 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 Labs Labs: Laboratory Results - last 24 hr 01/28/25 04:34 WBC 14.4 H RBC 3.12 L Hgb 8.9 L Hct 30.0 L MCV 96.2 D MCH 28.5 MCHC 29.7 L RDW 16.4 H Plt Count 172 MPV 13.4 H Immature Gran % (Auto) 4.0 H Neut % (Auto) 74.3 H Lymph % (Auto) 13.0 L [place] % (Auto) 5.9 Eos % (Auto) 2.2 Baso % (Auto) 0.6 Lymph # (Auto) 1.87 [place] # (Auto) 0.9 H Eos # (Auto) 0.3 Baso # (Auto) 0.1 Abs Immat Gran (auto) 0.57 H Absolute Neuts (auto) 10.7 H Absolute Nucleated RBC 0.000 Nucleated RBC % 0.0 % Immature Plt Fraction 9.3 Sodium 138 Potassium 4.5 Chloride 112 H Carbon Dioxide 17 L Anion Gap 9 BUN 32 H Creatinine 1.50 H Estim Creat Clear Calc 16 Estimated GFR 33 L Glucose 86 Calcium 7.8 L Magnesium 2.0 Total Bilirubin 0.6 AST 33 ALT 18 Alkaline Phosphatase 101 Total Protein 5.0 L Albumin 2.1 L
[2025-01-28] MEDS: ALPRAZolam (*CRX) 0.5 MG TABLET PO (21:11)
[2025-01-29 03:39] VITALS: BP 121/56; PULSE 86; RESP 17; TEMP 36.6; O2SAT 95
[2025-01-29 08:00] VITALS: BP 120/57; PULSE 75; RESP 14; TEMP 36.5; O2SAT 95
[2025-01-29] MEDS: PANTOPRAZOLE 40 MG TABLET PO (08:31)
[2025-01-29] MEDS: oxyCODONE/ACETAMINOPHEN (*CRX) 10-325 MG TABLET 1 TAB PO (08:31)
[2025-01-29] MEDS: LORATADINE/PSEUDOEPHEDRINE (*CRX) 10/240 MG TABLET ER 24 HR 1 TAB PO (08:31)
[2025-01-29] MEDS: polyethylene glycoL 3350 17 GM POWD.PACK PO (08:31)
[2025-01-29] MEDS: AMOXICILLIN/CLAVULANATE K 500-125 MG TAB 1 TABLET PO (08:31)
[2025-01-29] MEDS: GABAPENTIN 100 MG CAPSULE PO (08:31)
[2025-01-29] MEDS: HEPARIN SODIUM 5,000 UNITS/ML VIAL 5000 UNITS SUB-Q (08:32)
[2025-01-29 12:00] VITALS: BP 119/60; PULSE 85; RESP 14; TEMP 36.4; O2SAT 95
--- NOTE | 2025-01-29 13:54 | PCDIET ---
Diet order: Regular with Ensure Enlive TID. Oral intakes have been fair. Spoke with nursing today, plans for home with hospice at discharge. No further nutritional interventions needed at this time.
--- NOTE | 2025-01-29 14:05 | PM.DS ---
DS: Admitting Diagnosis Discharge Date 01/29/25 Admitting Diagnosis Weakness DS: Discharge Diagnosis Discharge Diagnosis (1) Bacteremia: Code(s): R78.81 - Bacteremia Status: Acute (2) Acute UTI: Code(s): N39.0 - Urinary tract infection, site not specified Status: Acute (3) LIANE (acute kidney injury): Code(s): N17.9 - Acute kidney failure, unspecified Status: Acute (4) Failure to thrive: Status: Acute (5) Hypokalemia: Code(s): E87.6 - Hypokalemia Status: Acute (6) Hypotension: Code(s): I95.9 - Hypotension, unspecified Status: Acute (7) Leukocytosis: Code(s): D72.829 - Elevated white blood cell count, unspecified Status: Acute DS: Summary Hospital Course Reason for hospitalization: 85yo female with volume overload managed by furosemide, neuropathy, hypertension, chronic pain, anxiety, and corkscrew esophagus here for weakness. Please see H&P for details. Hospital Course: On ED evaluation, WBC of 24K, Hgb 12.2, platelet of 144K, potassium 2.9 and Cr 2.8. UA consistent with UTI. CXR was clear. with no acute abnormality. EKG showed normal sinus rhythm with possible old anterior FL and moderate T wave changes lateral and inferior leads. Patient received fluid bolus and potassium was replaced. BCx and UCx collected and started on IV Rocephin. Her baseline creatinine around 1.2 back in 2022. Diuretic and losartan held. She continued to have good UOP. Cr trended down to 1.5. IV fluids stopped. Renal ultrasound was unremarkable. CT Abd/pelvis without contrast showing slight pleural effusions and otherwise chronic findings but no acute findings. She had urinary hesitancy. Workup negative so far for etiology. She will likely need evaluation for this as an outpatient basis with urology/gynecology. She however does not want to do any further workup. BCx showing bacteremia with EColi. UCx also growing EColi, both [place]-sensitive. Ceftriaxone dose increased to 2 g daily. WBC trended down. Changed to oral route to complete a course. She has [facility] esophageal problems with regurgitation of food as a chronic problem. Patient requesting hospice care so arrangements made for a meeting. The patient feels ready for hospice and this was arranged. She did well and was able to be discharged on 01/29/25. Status at Discharge Cognitive/behavioral status at discharge: stable Time Spent with Patient Time attestation: Total time spent providing and/or coordinating discharge services: 34 minutes Time spent: Greater than 30 minutes Exam Narrative: AF 97.7 120/57 75 14 95% ra Gen - NARD Chest - clear anteriorly. nml RR CV - RRR S1/S2 Abd - Soft, NT/ND, Positive BS Ext - No pedal edema. Psych - Nml mood and affect Skin - Warm and dry Discharge Plan Discharge Attending physician on discharge: Tl Olivo Consulting providers: [facility] Discharging Clinician: Tl Olivo Anticipated Discharge Date/Time: 01/29/25 14:21 Patient Disposition: Hospice - Home Activity: as tolerated Diet: as tolerated Discharge Instructions: Discharge home with Hospice Care Thank you for using [facility] for your health care needs. Patient Instructions: Antibiotic Form Patient Language: Urdu Stand Alone Forms: General Discharge Information Follow-up/Referrals: Carson,MD Nathen [Primary Care Provider] - Call for Appointment Discharge Medications: New polyethylene glycol 3350 [Miralax] 17 gram Powder In Packet 17 g PO QAM Qty: 30 1RF amoxicillin-pot clavulanate [Augmentin] 500-125 mg Tablet 1 tablet PO Q12H Qty: 9 0RF Continued oxycodone-acetaminophen 10-325 mg tablet 1 tablet PO TID PRN (Reason: back pain) alprazolam 0.5 mg tablet 0.5 mg PO BID PRN (Reason: anxiety) gabapentin 100 mg capsule 100 mg PO BID Patient Comments: pt states she doesn't take it every day due to swallowing issues Held furosemide 20 mg tablet 20 mg PO DAILY Hold Instructions: HOLD - Resume when okay with your doctor losartan 25 mg tablet 25 mg PO DAILY Hold Instructions: HOLD - Resume when okay with your doctor Date of admission: 01/23/25 14:04 Primary Care Provider: CarsonNathen Admitting Provider: José Miguel Olivares Attending physician on admission: José Miguel Olivares Condition: Stable Hospitalist MIPS Heart Failure (Exclusion) Patient has history of Heart Transplant or Left Ventricular Assistive Device?: No IF YES, STOP HERE Heart Failure (Qualifier) Patient has current or prior documentation of LVEF less than or equal to 40%, or mod/servere depressed LVSF?: No IF NO, STOP HERE
== END 2025-01-29 15:40 | disposition hospice, home (50) | DRG 682 ==
LOC: ANHED 14:01 → ANH2MED 15:09
PROVIDERS: Internal Medicine; Internal Medicine Nephrology; Nurse Practitioner Gerontology; Student in an Organized Health Care Education/Training Program; Admitting Provider Hospitalist; Emergency Provider Family Medicine; PCP Internal Medicine; Visit Provider Internal Medicine
DX: N17.9 Acute kidney failure, unspecified (principal); E43 Unspecified severe protein-calorie malnutrition; N39.0 Urinary tract infection, site not specified; R78.81 Bacteremia; Z68.1 Body mass index [BMI] 19.9 or less, adult; I95.9 Hypotension, unspecified; E87.6 Hypokalemia; M79.7 Fibromyalgia; F41.9 Anxiety disorder, unspecified; Z87.891 Personal history of nicotine dependence; B96.20 Unspecified Escherichia coli [E. coli] as the cause of diseases classified elsewhere; Z51.5 Encounter for palliative care
CPT/HCPCS: 36415; 71046; 74176; 76775; 80053; 81001; 82550; 82570; 83605; 83735; 84100; 84132; 84156; 84300; 84540; 85025; 85055; 87040; 87086; 87186; 92610; 93005; 96365; 96375; 97110; 97162; 97166; 97530; 97535; 99285; A9270; J0696; J1644; J3475; J3480; J7030; J7040